=== PATIENT | female | born 1945 | race Caucasian/White ===

== ENCOUNTER → 2017-12-11 08:58 | Outpatient (CLI) | payer MEDICARE, SELFPAY ==
[2017-12-11 09:59] LABS: Cholesterol 151 mg/dL (140-199); HDL Cholesterol 75 mg/dL (40-60); LDL Cholesterol Calculated 62 mg/dL (<100); Triglycerides 71 mg/dL (35-150)
== END ==
PROVIDERS: PCP Internal Medicine; Visit Provider Internal Medicine Cardiovascular Disease
DX: I10 Essential (primary) hypertension (principal); E78.5 Hyperlipidemia, unspecified
CPT/HCPCS: 36415; 80061

== ENCOUNTER → 2017-12-21 07:58 | Outpatient (CLI) | payer MEDICARE, SELFPAY ==
--- NOTE | 2017-12-21 | DI.ECHO.S_ITS ---
[facility]---------+ [facility] +---------+ : : [address] : : : : [id number] : : : : Phone: [phone] +---------+ Echocardiogram Report + + :Name: JAMES WHITTEN Study Date: 12/21/2017 Height: 66 in : :[facility] Weight: 169 lb : : Gender: Female BSA: 1.9 m2 : :: 1945 Age: 72 yrs BP: 162/94 mmHg: :Reason For Study: Cardiomyopathy : :Ordering Physician: Migdalia : :Roscoe Tovar Performed By: Paris Darby : :Referring: Winifred Baird : + + Interpretation Summary 1) Normal left ventricular size with borderline reduced systolic function (EF about 50%). 2) Upper normal right ventricular size with normal function. 3) There is borderline mitral valve prolapse of the anterior leaflet. 4) There is mild to moderate mitral regurgitation. 5) Compared to the echo done 04/07/2017, no significant change. Procedure: A two-dimensional transthoracic echocardiogram with color flow and Doppler was performed. The study quality was technically adequate. Comparison is made with the echocardiogram of 04-07-17. The patient was in normal sinus rhythm during the exam. Left Ventricle: The left ventricle is normal in size. There is normal left ventricular wall thickness. There has been no significant change since the previous study. Left ventricular ejection fraction is estimated to be 50 +/- 5%. Assessment of diastolic parameters suggests a pseudonormalization pattern, consistent with elevated filling pressures. Right Ventricle: The right ventricle is at the upper limits of normal in size. The right ventricular systolic function is normal. Atria: The left atrium is moderately dilated. Right atrial size is normal. The interatrial septum is intact with no evidence for an atrial septal defect. Mitral Valve: The mitral valve leaflets appear borderline thickened, but open well. There is borderline mitral valve prolapse. There is prolapse of the anterior mitral valve leaflet. There is mild to moderate mitral regurgitation. Aortic Valve: The aortic valve is trileaflet. The aortic valve opens well. There is no aortic valve stenosis. No aortic regurgitation is present. Tricuspid Valve: The tricuspid valve leaflets are thin and pliable. There is trace tricuspid regurgitation. The right ventricular systolic pressure is estimated at 33 mmHg assuming a right atrial pressure of 8 mm Hg. Pulmonic Valve: The pulmonic valve is not well visualized. Great Vessels: The aortic root is normal size. The dimensions of the ascending aorta are normal. The IVC is dilated (diameter is greater than 2.1 cm) yet it collapses greater than 50% with a sniff. This suggests a right atrial pressure of 8 mm Hg. Pericardium/ Pleura There is no pericardial effusion. There is no pleural effusion. MMode/2D Measurements & Calculations LVIDd: 5.0 cm Ao root diam: 3.6 cm LVIDs: 4.2 cm Aortic Jxn: 2.8 cm FS: 16.9 % asc Aorta Diam: 3.4 cm IVSd: 0.90 cm Ao Arch Diam (Prox Trans): 3.1 cm LVPWd: 0.77 cm LV heck. diameter/BSA (cm/m^2): 2.7 LV sys. diameter/BSA (cm/m^2): 2.2 LA dimension: 4.1 cm RA long axis: 5.7 cm LA A2 area: 21.3 cm2 RA area: 19.2 cm2 LA A4 area: 27.5 cm2 RA vol: 54.8 ml LA length (vol): 5.9 cm RA : 29.4 ml/m2 LA vol: 84.8 ml IVC diam: 2.2 cm LA vol index: 45.5 ml/m2 RVD1 (basal): 3.1 cm Doppler Measurements & Calculations Ao V2 max: 145.2 cm/sec MV E max ablerto: 53.0 cm/sec Ao V2 mean: 86.6 cm/sec MV A max alberto: 60.0 cm/sec Ao max P.4 mmHg MV E/A: 0.88 Ao mean P.8 mmHg Med Peak E' Alberto: 4.1 cm/sec Ao V2 VTI: 32.2 cm E/E' med: 12.9 Lat Peak E' Alberto: 7.9 cm/sec E/E' lat: 6.7 E/e' average: 9.8 MV dec time: 0.29 sec MV P1/2t: 83.9 msec TR max alberto: 250.3 cm/sec MV P1/2t max alberto: 51.7 cm/sec TR max P.1 mmHg MVA(P1/2t): 2.6 cm2 PA V2 max: 72.4 cm/sec PA V2 mean: 48.1 cm/sec PA mean P.1 mmHg PA Accel Time: 0.16 sec Reading Physician:10:03 AM
== END ==
PROVIDERS: PCP Internal Medicine; Visit Provider Internal Medicine Cardiovascular Disease
DX: I48.0 Paroxysmal atrial fibrillation (principal); I42.9 Cardiomyopathy, unspecified; I34.0 Nonrheumatic mitral (valve) insufficiency
CPT/HCPCS: 93306

== ENCOUNTER → 2018-09-03 09:50 | Outpatient (CLI) | payer MEDICARE, SELFPAY ==
--- NOTE | 2018-09-03 | DI.RAD.S_ITS ---
PROCEDURE: XR KNEE RT 1TO2V INDICATIONS: KNEE PAIN TECHNIQUE: 2 views of the knee were acquired. COMPARISON: None. FINDINGS: Bones: No fractures or dislocations. No suspicious bony lesions. Mild thinning of the joint interspaces, chronic in appearance. Soft tissues: No joint effusion. No suspicious soft tissue calcifications. IMPRESSION: Mild degenerative knee joint osteoarthritis but no trauma found. Dictated by: Stanley Davis M.D. on 09/03/2018 at 11:25 Approved by: Stanley Davis M.D. on 09/03/2018 at 11:26
== END ==
PROVIDERS: PCP Internal Medicine; Visit Provider Internal Medicine
DX: Z13.820 Encounter for screening for osteoporosis (principal); M81.0 Age-related osteoporosis without current pathological fracture; Z78.0 Asymptomatic menopausal state; M25.561 Pain in right knee; M17.11 Unilateral primary osteoarthritis, right knee
CPT/HCPCS: 73560; 77080

== ENCOUNTER → 2018-09-15 09:23 | Outpatient (CLI) | payer MEDICARE, SELFPAY ==
[2018-09-15 10:17] LABS: Alanine Aminotransferase 45 IU/L (9-52); Aspartate Aminotransferase 31 IU/L (14-36); BUN Creatinine Ratio 22.5 (6-22); Blood Urea Nitrogen 18 mg/dL (7-17); Calcium 10.1 mg/dL (8.4-10.2); Carbon Dioxide 27 mmol/L (22-32); Chloride 104 mmol/L (98-107); Cholesterol 142 mg/dL (140-199); Estimated Glomerular Filt Rate > 60.0 mL/min (>60); Glucose 91 mg/dL (80-110); HDL Cholesterol 56 mg/dL (40-60); HEMOLYSIS < 15 (0-50); LDL Cholesterol Calculated 68 mg/dL (<100); Potassium 4.3 mmol/L (3.4-5.1); Sodium 139 mmol/L (137-145); Triglycerides 88 mg/dL (35-150)
== END ==
PROVIDERS: PCP Internal Medicine; Visit Provider Internal Medicine
DX: I10 Essential (primary) hypertension (principal); E78.5 Hyperlipidemia, unspecified
CPT/HCPCS: 36415; 80048; 80061; 84450; 84460

== ENCOUNTER → 2018-10-15 12:38 | Outpatient (CLI) | payer MEDICARE, SELFPAY ==
--- NOTE | 2018-10-15 | DI.MG.S_ITS ---
BILATERAL DIGITAL SCREENING MAMMOGRAM 3D/2D WITH CAD: 10/15/2018 CLINICAL: Routine screening. Family history of breast cancer. Comparison is made to exams dated: 10/07/2017 mammogram, 05/06/2016 mammogram - [facility], and 04/09/2015 mammogram - [facility]. The tissue of both breasts is heterogeneously dense. This may lower the sensitivity of mammography. Current study was also evaluated with a Computer Aided Detection (CAD) system. There are benign post operative findings in the right breast. There is a mole marker on the right breast. No significant masses, calcifications, or other findings are seen in either breast. There has been no significant interval change. IMPRESSION: There is no mammographic evidence of malignancy. A 1 year screening mammogram is recommended. This exam was interpreted at Station ID: [id number]. NOTE: For mammograms, a report in lay terms will be sent to the patient. Approximately 15% of breast malignancies will not be visualized mammographically. In the management of a palpable breast mass, a negative mammogram must not discourage biopsy of a clinically suspicious lesion. Electronically Signed By: Laurent celis/yessica:10/15/2018 18:23:05 letter sent: Normal Exam ACR BI-RADS Category 2: Benign Finding(s) 3342F
== END ==
PROVIDERS: PCP Internal Medicine; Visit Provider Internal Medicine
DX: Z12.31 Encounter for screening mammogram for malignant neoplasm of breast (principal); Z80.3 Family history of malignant neoplasm of breast
CPT/HCPCS: 77063; 77067

== ENCOUNTER → 2019-02-28 08:56 | Outpatient (CLI) | payer MEDICARE, SELFPAY ==
[2019-02-28 09:54] LABS: Add Manual Diff / Slide Review NO; Basophils Absolute Auto 100 /uL (0-100); Basophils Percent Auto 1.2 % (0-2); Eosinophils Absolute Auto 200 /uL (0-450); Eosinophils Percent Auto 3.9 % (2-4); Hematocrit 43.4 % (36-46); Hemoglobin 14.9 g/dL (12.0-16.0); Lymphocytes Absolute Auto 1600 /uL (1100-4500); Lymphocytes Percent Auto 27.6 % (25-40); Mean Corpuscular HGB Conc 34.3 % (30-36); Mean Corpuscular Hemoglobin 30.4 PG (26-34); Mean Corpuscular Volume 88.7 fL (80-100); Monocytes Absolute Auto 500 /uL (0-900); Monocytes Percent Auto 8.4 % (3-14); Neutrophils Absolute Auto 3500 /uL (1500-7000); Neutrophils Percent Auto 58.9 % (50-75); Platelet Count 215 X10^3/uL (150-400); Red Cell Distribution Width 13.6 % (11.6-14.8); White Blood Cell Count 5.9 X10^3/uL (4.5-11.0)
[2019-02-28 10:17] LABS: BUN Creatinine Ratio 22.9 (6-22); Blood Urea Nitrogen 16 mg/dL (7-17); Calcium 10.2 mg/dL (8.4-10.2); Carbon Dioxide 26 mmol/L (22-32); Chloride 106 mmol/L (98-107); Cholesterol 167 mg/dL (140-199); Estimated Glomerular Filt Rate > 60.0 mL/min (>60); Glucose 95 mg/dL (80-110); HDL Cholesterol 64 mg/dL (40-60); HEMOLYSIS < 15 (0-50); LDL Cholesterol Calculated 82 mg/dL (<100); Potassium 4.3 mmol/L (3.4-5.1); Sodium 139 mmol/L (137-145); Triglycerides 107 mg/dL (35-150)
== END ==
PROVIDERS: PCP Internal Medicine; Visit Provider Internal Medicine Cardiovascular Disease
DX: I10 Essential (primary) hypertension (principal)
CPT/HCPCS: 36415; 80048; 80061; 85025

== ENCOUNTER → 2019-11-21 14:55 | Outpatient (CLI) | payer MEDICARE, SELFPAY ==
--- NOTE | 2019-11-21 | DI.MG.S_ITS ---
BILATERAL DIGITAL SCREENING MAMMOGRAM 3D/2D WITH CAD: 11/21/2019 CLINICAL: Routine screening. Family history of breast cancer. Comparison is made to exams dated: 10/15/2018 mammogram, 10/07/2017 mammogram, and 05/06/2016 mammogram - [facility]. The tissue of both breasts is heterogeneously dense. This may lower the sensitivity of mammography. Current study was also evaluated with a Computer Aided Detection (CAD) system. There are benign calcifications in both breasts. There also are benign post operative findings in the right breast. There is a mole marker on the right breast. No significant masses, calcifications, or other findings are seen in either breast. There has been no significant interval change. IMPRESSION: There is no mammographic evidence of malignancy. A 1 year screening mammogram is recommended. This exam was interpreted at Station ID: [id number]. NOTE: For mammograms, a report in lay terms will be sent to the patient. Approximately 15% of breast malignancies will not be visualized mammographically. In the management of a palpable breast mass, a negative mammogram must not discourage biopsy of a clinically suspicious lesion. Electronically Signed By: Ming calderon/yessica:11/22/2019 13:48:23 letter sent: Normal Exam ACR BI-RADS Category 2: Benign Finding(s) 3342F
== END ==
PROVIDERS: PCP Internal Medicine; Referring Provider Internal Medicine; Visit Provider Internal Medicine
DX: Z12.31 Encounter for screening mammogram for malignant neoplasm of breast (principal); Z80.3 Family history of malignant neoplasm of breast
CPT/HCPCS: 77063; 77067

== ENCOUNTER → 2020-05-11 09:28 | Outpatient (CLI) | payer MEDICARE, SELFPAY ==
[2020-05-11 10:29] LABS: Add Manual Diff / Slide Review NO; Basophils Absolute Auto 100 /uL (0-100); Basophils Percent Auto 1.1 % (0-2); Eosinophils Absolute Auto 200 /uL (0-450); Eosinophils Percent Auto 4.1 % (2-4); Hematocrit 40.2 % (36-46); Hemoglobin 13.4 g/dL (12.0-16.0); Lymphocytes Absolute Auto 1500 /uL (1100-4500); Lymphocytes Percent Auto 30.4 % (25-40); Mean Corpuscular HGB Conc 33.4 % (30-36); Mean Corpuscular Hemoglobin 29.9 PG (26-34); Mean Corpuscular Volume 89.5 fL (80-100); Monocytes Absolute Auto 400 /uL (0-900); Monocytes Percent Auto 8.6 % (3-14); Neutrophils Absolute Auto 2800 /uL (1500-7000); Neutrophils Percent Auto 55.8 % (50-75); Platelet Count 183 X10^3/uL (150-400); Red Cell Distribution Width 13.4 % (11.6-14.8)
[2020-05-11 10:47] LABS: BUN Creatinine Ratio 23.3 (6-22); Blood Urea Nitrogen 17 mg/dL (7-17); Calcium 9.8 mg/dL (8.4-10.2); Carbon Dioxide 25 mmol/L (22-32); Chloride 107 mmol/L (98-107); Cholesterol 151 mg/dL (140-199); Estimated Glomerular Filt Rate > 60.0 mL/min (>60); Glucose 95 mg/dL (80-110); HDL Cholesterol 62 mg/dL (40-60); HEMOLYSIS < 15 (0-50); LDL Cholesterol Calculated 75 mg/dL (<100); Sodium 138 mmol/L (137-145); Triglycerides 70 mg/dL (35-150)
== END ==
PROVIDERS: PCP Internal Medicine; Referring Provider Internal Medicine Cardiovascular Disease; Visit Provider Internal Medicine Cardiovascular Disease
DX: I10 Essential (primary) hypertension (principal); E78.5 Hyperlipidemia, unspecified
CPT/HCPCS: 36415; 80048; 80061; 85025

== ENCOUNTER → 2020-05-29 08:40 | Outpatient (CLI) | payer MEDICARE, SELFPAY ==
--- NOTE | 2020-05-29 | DI.ECHO.S_ITS ---
[facility]---------+ [facility] +---------+ : : [address] : : : : [id number] : : : : Phone: [phone] : [phone] +---------+ Echocardiogram Report + + :Name: JAMES WHITTEN Study Date: 05/29/2020 Height: 66 in : :[facility] Weight: 170 lb : : Gender: Female BSA: 1.9 m2 : :: 1945 Age: 74 yrs BP: 156/102 mmHg: :Reason For Study: CARDIOMYOPATHY : :Ordering Physician: GLENROY, : :COOPER Performed By: Marianne Caceres : :Referring: COOPER TOVAR : + + Interpretation Summary 1) Normal left ventricular size with mildly reduced systolic function (EF 45- 50%). 2) Normal right ventricular size and normal function. 3) The left atrium is severely dilated. 4) There is mild mitral valve prolapse of the anterior leaflet. 5) There is mild mitral regurgitation. 6) Compared to the echo done 12/21/2017, LVEF has decreased from about 50% to 45-50%. Procedure: A two-dimensional transthoracic echocardiogram with color flow and Doppler was performed. The study quality was technically adequate. Comparison is made with the echocardiogram of 12/21/2017. The heart rate ranged between 58-70 bpm during the study. Left Ventricle: The left ventricle is normal in size and wall thickness. The ejection fraction is estimated to be 45-50%. Right Ventricle: The right ventricle is normal in size and function. Atria: The left atrium is severely dilated. Right atrial size is normal. There is no Doppler evidence for an interatrial shunt. Mitral Valve: There is mild mitral valve prolapse. There is mild mitral regurgitation. Aortic Valve: The aortic valve is trileaflet. The aortic valve opens well. There is no aortic valve stenosis. There is trace aortic regurgitation. Tricuspid Valve: The tricuspid valve is not well visualized, but is grossly normal. There is mild tricuspid regurgitation. The right ventricular systolic pressure is estimated to be at least 24 mmHg based on an estimated right atrial pressure of 3 mm Hg. Pulmonic Valve: The pulmonic valve is not well visualized. There is mild pulmonic regurgitation. Great Vessels: The aortic root is normal size. The dimensions of the ascending aorta are normal. The IVC is of normal diameter and collapses greater than 50% with a sniff. This suggests a low right atrial pressure of 3 mm Hg. Pericardium/ Pleura There is no pericardial effusion. There is no pleural effusion. MMode/2D Measurements & Calculations LVIDd: 5.4 cm LVOT diam: 2.1 cm LVIDs: 4.0 cm Ao root diam: 3.4 cm FS: 26.3 % Ao Arch Diam (Prox Trans): 3.0 cm EPSS: 0.89 cm IVSd: 0.90 cm LVPWd: 1.00 cm LV heck. diameter/BSA (cm/m^2): 2.9 LV sys. diameter/BSA (cm/m^2): 2.1 LA A2 area: 32.7 cm2 RA long axis: 6.2 cm LA A4 area: 29.5 cm2 RA area: 18.8 cm2 LA length (vol): 6.2 cm RA vol: 48.5 ml LA vol: 131.6 ml RA : 26.0 ml/m2 LA vol index: 70.5 ml/m2 IVC diam: 1.4 cm RVD1 (basal): 3.7 cm TAPSE: 2.1 cm Doppler Measurements & Calculations Ao V2 max: 125.6 cm/sec LVOT Max Alberto: 79.1 cm/sec Ao V2 mean: 90.5 cm/sec LV V1 max P.5 mmHg Ao max P.3 mmHg LV V1 VTI: 16.2 cm Ao mean P.5 mmHg ALICIA(I,D): 2.0 cm2 Ao V2 VTI: 27.9 cm ALICIA(V,D): 2.2 cm2 sev ratio: 0.58 ALICIA indexed to BSA (cm^2/m^2): 1.1 MV E max alberto: 67.8 cm/sec TR max alberto: 230.2 cm/sec MV A max alberto: 27.3 cm/sec TR max P.2 mmHg MV E/A: 2.5 PA V2 max: 36.3 cm/sec Med Peak E' Alberto: 4.2 cm/sec PA V2 mean: 25.8 cm/sec E/E' med: 16.0 PA mean P.31 mmHg Lat Peak E' Alberto: 9.7 cm/sec PA pr(Accel): 25.1 mmHg E/E' lat: 7.0 E/e' average: 11.5 MV dec time: 0.21 sec SV(LVOT): 55.7 ml Reading Physician:04:36 PM
== END ==
PROVIDERS: PCP Internal Medicine; Referring Provider Internal Medicine; Visit Provider Internal Medicine Cardiovascular Disease
DX: I08.1 Rheumatic disorders of both mitral and tricuspid valves (principal); I42.9 Cardiomyopathy, unspecified
CPT/HCPCS: 93306

== ENCOUNTER → 2020-12-04 13:54 | Outpatient (CLI) | payer MEDICARE, SELFPAY ==
--- NOTE | 2020-12-04 | DI.MG.S_ITS ---
BILATERAL DIGITAL SCREENING MAMMOGRAM 3D/2D WITH CAD: 12/04/2020 CLINICAL: Routine screening. Family history of breast cancer. Comparison is made to exams dated: 11/21/2019 mammogram, 10/15/2018 mammogram, 10/07/2017 mammogram, and 05/06/2016 mammogram - [facility]. The tissue of both breasts is heterogeneously dense. This may lower the sensitivity of mammography. Current study was also evaluated with a Computer Aided Detection (CAD) system. There are diffuse calcifications in the right breast. There also are calcifications in the left breast. Additionally, there are benign post operative findings and scarring in the right breast. There is a mole marker on the right breast. No significant masses, calcifications, or other findings are seen in either breast. There has been no significant interval change. IMPRESSION: BENIGN There is no mammographic evidence of malignancy. A 1 year screening mammogram is recommended. This exam was interpreted at Station ID: [id number]. NOTE: For mammograms, a report in lay terms will be sent to the patient. Approximately 15% of breast malignancies will not be visualized mammographically. In the management of a palpable breast mass, a negative mammogram must not discourage biopsy of a clinically suspicious lesion. Electronically Signed By: Poli Vidales M.D. aty/:12/04/2020 15:09:47 letter sent: Normal Exam ACR BI-RADS Category 2: Benign Finding(s) 3342F
--- NOTE | 2020-12-04 | DI.RAD.S_ITS ---
PROCEDURE: XR DEXA AXIAL SKELETON INDICATIONS: Age-related osteoporosis COMPARISON: [facility], CR, XR DEXA AXIAL SKELETON, 09/03/2018, 10:10. FINDINGS: This blank DEXA report has been sent in error by the PACS system. The correct and complete report will be forthcoming in 1-2 days. Thank you for your patience and understanding. Dictated by: Katja Michael MD, PhD on 12/04/2020 at 17:12 Approved by: Katja Michael MD, PhD on 12/04/2020 at 17:13
== END ==
PROVIDERS: PCP Internal Medicine; Referring Provider Internal Medicine; Visit Provider Internal Medicine
DX: M85.851 Other specified disorders of bone density and structure, right thigh (principal); Z12.31 Encounter for screening mammogram for malignant neoplasm of breast; Z80.3 Family history of malignant neoplasm of breast; Z78.0 Asymptomatic menopausal state
CPT/HCPCS: 77063; 77067; 77080

== ENCOUNTER 2021-02-06 17:43 | Inpatient (IN) | payer MEDICARE, SELFPAY ==
[2021-02-06] VITALS (12 sets, daily range): BP systolic 127–144; BP diastolic 78–103; PULSE 63–116; RESP 15–24; TEMP 36.6–36.9; O2SAT 85–99; BMI 29.0
--- NOTE | 2021-02-06 18:41 | ED.ABDPAIN ---
HPI - Abdominal Pain General Chief Complaint: Abdominal Pain Stated Complaint: abd pain all day Time Seen by Provider: 02/06/21 18:41 Source: patient Mode of arrival: Ambulatory History of Present Illness HPI narrative: 75-year-old woman with a history of chronic atrial fibrillation on metoprolol and warfarin presents with severe upper abdominal pain present since noon today. Associated with some nausea and vomiting but no diarrhea. She reports no constipation and notes that she has passed a small amount of flatus today. She has had prior bowel surgeries but isn't quite sure what was done. She apparently had a ?miscarriage? in the 70s and may have had an appendectomy and cholecystectomy. She has a large midline abdominal incision. She has never had bowel obstructions nor pain like this before. She reports no recent fevers cough, chills, headaches, paresthesias. She notes that she is in chronic AFib and has not been having any chest pain or noted particularly fast rates or palpitations. Related Data Home Medications Medication Instructions Recorded Confirmed metoprolol succinate 50 mg 50 mg PO BID #0 10/27/16 02/06/21 tablet,extended release 24 hr losartan 25 mg tablet 25 mg PO BEDTIME 02/06/21 02/06/21 rosuvastatin 5 mg tablet 5 mg PO DAILY 02/06/21 02/06/21 warfarin 5 mg tablet 5 mg PO 3XW 02/06/21 02/06/21 Allergies Allergy/AdvReac Type Severity Reaction Status Date / Time No Known Allergies Allergy Uncoded 09/02/17 12:40 Review of Systems Review of Systems Narrative: Remainder of complete review of systems is otherwise unremarkable except for that included in the HPI. Patient History Medical History (Updated 02/06/21 @ 23:03 by Dayanara Vanessa MD) Chronic atrial fibrillation Hyperlipidemia Hypertension Surgical History (Updated 02/06/21 @ 23:04 by Dayanara Vanessa MD) History of partial colectomy Status post colostomy takedown Family History (Updated 02/06/21 @ 23:04 by Dayanara Vanessa MD) Mother Stroke Father Parkinson's disease (tremor, stiffness, slow motion, unstable posture) Social History household members: spouse alcohol intake: current Exam Narrative Exam Narrative: General: Healthy appearing, in significant pain with spasms of increasing pain. Able to participate with history taking. HEENT: Moist mucous membranes, normal sclera with reactive pupils, Respiratory: Lungs are clear to auscultation, no wheezing no rales no rhonchi. Full and symmetrical air movement Cardiac: Mild tachycardia with an irregularly irregular rhythm, no murmurs no bruits Abdomen: Soft, exquisitely tender over the upper quadrants with guarding into the right lower quadrant, hypoactive bowel tones. No flank pain. Neurologic: Grossly neurologically intact with no obvious asymmetries or abnormalities Extremities: No trauma, well perfused Psych: Cooperative, appropriate insight and affect Initial Vital Signs Initial Vital Signs: Vital Signs Temperature 97.8 F 02/06/21 17:47 Pulse Rate 76 02/06/21 17:47 Respiratory Rate 18 02/06/21 17:47 Blood Pressure 144/92 H 02/06/21 17:47 Pulse Oximetry 99 02/06/21 17:47 Course Orders Ordered: ED Orders 02/06/21 17:58 EKG-12 Lead Stat 02/06/21 18:22 Complete Blood Count AUTO DIFF Stat Comprehensive Metabolic Panel Stat Lactate (Lactic Acid) Stat Lipase Stat 02/06/21 18:49 CT abdomen pelvis w con Stat 02/06/21 19:19 Prothrombin Time INR Stat 02/06/21 19:26 Blood Culture Stat 02/06/21 21:18 COVID19 - ADMIT (PIPE [employer]ENER swab/PCR) Stat Hydromorphone HCl (Hydromorphone 0.5 Mg Inj) 0.5 mg IV Q15MIN PRN PRN Reason: Pain, Last Admin: 02/06/21 21:36 Dose: 0.5 mg Documented by: Admin: 02/06/21 19:05 Dose: 0.5 mg Documented by: GREG Hydromorphone HCl (Hydromorphone 0.5 Mg Inj) 0.5 mg IV Q6H PRN PRN Reason: Pain, Moderate (4-6) Dextrose/Sodium Chloride (Dextrose 5%-0.9% Ns) 1,000 mls @ 100 mls/hr IV CONT LULU Last Admin: 02/06/21 22:51 Dose: 100 mls/hr Documented by: SJ Losartan Potassium (Losartan 25 Mg Tablet) 25 mg PO DAILY LULU Metoprolol Succinate (Metoprolol Er 50 Mg Tablet) 50 mg PO BID LULU Naloxone HCl (Naloxone 0.4 Mg/Ml Vial) 0.2 mg IV Q2MIN PRN PRN Reason: Opiate Reversal Ondansetron HCl (Ondansetron 4 Mg/2 Ml Inj) 4 mg IV Q8HR PRN PRN Reason: Nausea And Vomiting Discontinued Medications Sodium Chloride (Normal Saline 0.9%) 1,000 mls @ 1,000 mls/hr IV BOLUS ONE Stop: 02/06/21 19:47 Last Infusion: 02/06/21 21:41 Dose: 0 mls/hr Documented by: Admin: 02/06/21 19:05 Dose: 1,000 mls/hr Documented by: GREG Ondansetron HCl (Ondansetron 4 Mg/2 Ml Inj) 4 mg IV NOW ONE Stop: 02/06/21 18:49 Last Admin: 02/06/21 19:05 Dose: 4 mg Documented by: GREG Vital Signs Vital signs: Vital Signs - 8 hr 02/06/21 17:47 02/06/21 18:06 02/06/21 18:09 Temperature 97.8 F Pulse Rate 76 63 105 H Respiratory Rate 18 19 Blood Pressure 144/92 H 140/92 H Pulse Oximetry 99 96 96 02/06/21 18:33 02/06/21 19:00 02/06/21 19:18 Temperature Pulse Rate 87 97 H Respiratory Rate 24 19 15 Blood Pressure 134/103 H Pulse Oximetry 98 96 85 L 02/06/21 19:30 02/06/21 20:00 02/06/21 20:30 Temperature Pulse Rate 112 H 115 H 116 H Respiratory Rate 16 19 22 Blood Pressure 133/79 130/87 127/83 Pulse Oximetry 97 98 98 02/06/21 21:00 02/06/21 21:30 02/06/21 21:55 Temperature 98.4 F Pulse Rate 99 H 115 H 92 H Respiratory Rate 19 20 16 Blood Pressure 139/78 134/87 136/94 H Pulse Oximetry 98 99 MDM - Abdominal Pain Lab Data Result diagrams: 02/06/21 18:22 02/06/21 18:22 Labs: Lab Results 02/06/21 02/06/21 02/06/21 Range/Units 18:22 18:22 18:22 WBC 7.2 (4.5-11.0) X10^3/uL RBC 4.77 (4.0-5.2) X10^6/uL Hgb 13.9 (12.0-16.0) g/dL Hct 41.5 (36-46) % MCV 87.0 (80-100) fL MCH 29.1 (26-34) PG MCHC 33.4 (30-36) % RDW 14.8 (11.6-14.8) % Plt Count 169 (150-400) X10^3/uL Neut % (Auto) 77.8 H (50-75) % Lymph % (Auto) 15.6 L (25-40) % [place] % (Auto) 5.0 (3-14) % Eos % (Auto) 1.0 L (2-4) % Baso % (Auto) 0.6 (0-2) % Neut # (Auto) 5600 (1531-3781) /uL Lymph # (Auto) 1100 (0756-6334) /uL [place] # (Auto) 400 (0-900) /uL Eos # (Auto) 100 (0-450) /uL Baso # (Auto) 0 (0-100) /uL PT (10.1-12.7) SECONDS INR (0.9-1.3) Sodium 138 (137-145) mmol/L Potassium 4.3 (3.4-5.1) mmol/L Chloride 104 (98-107) mmol/L Carbon Dioxide 26 (22-32) mmol/L BUN 16 (7-17) mg/dL Creatinine 0.68 (0.52-1.04) mg/dL Estimated GFR > 60.0 (>60) mL/min BUN/Creatinine Ratio 23.5 H (6-22) Glucose 104 (80-110) mg/dL Lactate 1.0 (0.7-2.1) mmol/L Calcium 10.3 H (8.4-10.2) mg/dL Total Bilirubin 2.2 H (0.2-1.3) mg/dL AST 35 (14-36) IU/L ALT 37 H (<35) IU/L Alkaline Phosphatase 65 (38-126) U/L Total Protein 7.1 (6.3-8.2) g/dL Albumin 4.4 (3.5-5.0) g/dL Globulin 2.7 (1.7-4.1) g/dL Albumin/Globulin Ratio 1.6 (1.0-2.8) Lipase 60 (23-300) U/L SARS-CoV-2 (PCR) (Negative) 02/06/21 02/06/21 Range/Units 19:19 21:18 WBC (4.5-11.0) X10^3/uL RBC (4.0-5.2) X10^6/uL Hgb (12.0-16.0) g/dL Hct (36-46) % MCV (80-100) fL MCH (26-34) PG MCHC (30-36) % RDW (11.6-14.8) % Plt Count (150-400) X10^3/uL Neut % (Auto) (50-75) % Lymph % (Auto) (25-40) % [place] % (Auto) (3-14) % Eos % (Auto) (2-4) % Baso % (Auto) (0-2) % Neut # (Auto) (2792-1846) /uL Lymph # (Auto) (5910-8638) /uL [place] # (Auto) (0-900) /uL Eos # (Auto) (0-450) /uL Baso # (Auto) (0-100) /uL PT 28.8 H (10.1-12.7) SECONDS INR 2.5 H (0.9-1.3) Sodium (137-145) mmol/L Potassium (3.4-5.1) mmol/L Chloride (98-107) mmol/L Carbon Dioxide (22-32) mmol/L BUN (7-17) mg/dL Creatinine (0.52-1.04) mg/dL Estimated GFR (>60) mL/min BUN/Creatinine Ratio (6-22) Glucose (80-110) mg/dL Lactate (0.7-2.1) mmol/L Calcium (8.4-10.2) mg/dL Total Bilirubin (0.2-1.3) mg/dL AST (14-36) IU/L ALT (<35) IU/L Alkaline Phosphatase (38-126) U/L Total Protein (6.3-8.2) g/dL Albumin (3.5-5.0) g/dL Globulin (1.7-4.1) g/dL Albumin/Globulin Ratio (1.0-2.8) Lipase (23-300) U/L SARS-CoV-2 (PCR) Negative (Negative) Point of care testing: Urine Dip Bedside Urine Glucose Negative Bedside Urine Bilirubin - Negative Bedside Urine Ketone ++ 40 Urine Specific [place] 1.025 Bedside Urine Occult Blood - Negative Bedside Urine pH 6.0 Bedside Urine Protein +/- 15 Bedside Urine Urobilinogen - Negative Bedside Urine Nitrite - Negative Bedside Urine Leukocytes - Negative Esterase Imaging Data CT scan - abdomen/pelvis: Radiologist's Impression: FINDINGS: Image quality: Excellent. Lung bases: Dependent atelectasis in posterior aspect of bilateral lower lobes are seen. No pleural effusion or pneumothorax. Heart: Heart size is enlarged, no pericardial effusion. ABDOMEN: Liver: Liver is normal in size. Hypodense area are noted in anterior and posterior right hepatic segments and measures 4 and 5 mm in size series 2, image 26 and series 2, image 25 and are too small to characterize. Gallbladder: Multiple calcified stones are seen in dependent portion of gallbladder lumen. No gallbladder wall thickening or pericholecystic fluid. Biliary ducts: Unremarkable. Pancreas: Unremarkable. Spleen: No discrete splenic lesion. Small splenule is noted measures 1.3 cm in size. Adrenal Glands: Unremarkable. Kidneys and Ureters: Unremarkable. Stomach and Bowel: There is fluid distension of gastric lumen. Fluid distended small bowel loops are noted predominantly in left side of abdomen and measures up to 3.8 cm in diameter. A few air-fluid levels are seen. Distal small bowel loops are decompressed with suggestion of a zone of transition in anterior midline abdomen possibly involving mid to distal small bowel loop near a surgical clip seen on series 2, image 52. There is evidence of prior partial colectomy. No gross abnormal bowel wall thickening. No abscess collection. Peritoneum: No abnormal intraperitoneal fluid. No free air. Ventral Wall: No hernias. Abdominal Nodes: No retroperitoneal or mesenteric adenopathy by size criteria. Vessels: Aorta and inferior vena cava are normal in size. PELVIS: Pelvic Organs: Unremarkable. Bladder: Unremarkable. Pelvic Nodes: No enlarged lymph nodes. Miscellaneous: No hernias are seen. Bones: Degenerative disc disease throughout lower thoracic and lumbar spine is seen. There is grade 1 anterolisthesis of L4 on L5. No acute vertebral body compression fracture. No gross suspicious bony lesion. IMPRESSION: 1. Finding is suggestive of mid to distal small bowel obstruction with zone of transition likely involving mid to distal small bowel in anterior mid to lower abdomen near a surgical clip as above. This possibly represents bowel obstruction secondary to surgical adhesion given patient's history of prior partial colectomy. No gross abnormal bowel wall thickening. No free fluid or free air. 2. Cholelithiasis without CT evidence of acute cholecystitis. 3. Bibasilar dependent atelectasis. Dictated by: Fredrick Lomeli M.D. on 02/06/2021 at 19:55 ECG Data Interpretation: Atrial fibrillation at a rate of [address] T wave changes MDM Narrative Medical decision making narrative: 75-year-old woman presents with acute abdominal pain. CT scan suggests small bowel obstruction with transition point involving the mid to distal small bowel. Most suggestive of an acute adhesion. With the acute transition noted on the CT scan care is reviewed with Dr. Underwood, general surgeon on-call. Her recommendation was to admit to the hospital service and she will consult. Regarding the INR 2.5 she recommended simply holding Coumadin for the time being with no active reversal. Care is reviewed with Dr. Vanessa, hospitalist butadiene converter helper this evening. Patient will be admitted to her service. Will need COVID swab prior to admission. Hold on NG at this point as pain and vomiting or currently controlled. Final diagnosis of small-bowel obstruction. Discharge Plan Departure Patient Disposition: Admitted as Observation Clinical Impression: SBO (small bowel obstruction) Admit Date/Time: 02/06/21 21:56 Admit Provider: Dayanara Vanessa
[2021-02-06 18:42] LABS: Alanine Aminotransferase 37 IU/L (<35); Albumin 4.4 g/dL (3.5-5.0); Albumin Globulin Ratio 1.6 (1.0-2.8); Alkaline Phosphatase 65 U/L (38-126); Aspartate Aminotransferase 35 IU/L (14-36); BUN Creatinine Ratio 23.5 (6-22); Bilirubin Total 2.2 mg/dL (0.2-1.3); Blood Urea Nitrogen 16 mg/dL (7-17); Calcium 10.3 mg/dL (8.4-10.2); Carbon Dioxide 26 mmol/L (22-32); Chloride 104 mmol/L (98-107); Estimated Glomerular Filt Rate > 60.0 mL/min (>60); Globulin 2.7 g/dL (1.7-4.1); Glucose 104 mg/dL (80-110); HEMOLYSIS < 15 (0-50); Lipase 60 U/L (23-300); Potassium 4.3 mmol/L (3.4-5.1); Sodium 138 mmol/L (137-145); Total Protein 7.1 g/dL (6.3-8.2)
[2021-02-06 18:49] LABS: Add Manual Diff / Slide Review NO; Basophils Absolute Auto 0 /uL (0-100); Basophils Percent Auto 0.6 % (0-2); Eosinophils Absolute Auto 100 /uL (0-450); Hematocrit 41.5 % (36-46); Hemoglobin 13.9 g/dL (12.0-16.0); Lymphocytes Absolute Auto 1100 /uL (1100-4500); Lymphocytes Percent Auto 15.6 % (25-40); Mean Corpuscular HGB Conc 33.4 % (30-36); Mean Corpuscular Hemoglobin 29.1 PG (26-34); Monocytes Absolute Auto 400 /uL (0-900); Neutrophils Absolute Auto 5600 /uL (1500-7000); Neutrophils Percent Auto 77.8 % (50-75); Platelet Count 169 X10^3/uL (150-400); Red Blood Cell Count 4.77 X10^6/uL (4.0-5.2); Red Cell Distribution Width 14.8 % (11.6-14.8); White Blood Cell Count 7.2 X10^3/uL (4.5-11.0)
--- NOTE | 2021-02-06 18:49 | DI.CT.S_ITS ---
PROCEDURE: CT ABDOMEN PELVIS W CON INDICATIONS: abd pain TECHNIQUE: After the administration of intravenous contrast, axial sections acquired from the lung bases to the pubic symphysis. Coronal and sagittal reformats were performed. For radiation dose reduction, the following was used: automated exposure control, adjustment of mA and/or kV according to patient size. COMPARISON: None. FINDINGS: Image quality: Excellent. Lung bases: Dependent atelectasis in posterior aspect of bilateral lower lobes are seen. No pleural effusion or pneumothorax. Heart: Heart size is enlarged, no pericardial effusion. ABDOMEN: Liver: Liver is normal in size. Hypodense area are noted in anterior and posterior right hepatic segments and measures 4 and 5 mm in size series 2, image 26 and series 2, image 25 and are too small to characterize. Gallbladder: Multiple calcified stones are seen in dependent portion of gallbladder lumen. No gallbladder wall thickening or pericholecystic fluid. Biliary ducts: Unremarkable. Pancreas: Unremarkable. Spleen: No discrete splenic lesion. Small splenule is noted measures 1.3 cm in size. Adrenal Glands: Unremarkable. Kidneys and Ureters: Unremarkable. Stomach and Bowel: There is fluid distension of gastric lumen. Fluid distended small bowel loops are noted predominantly in left side of abdomen and measures up to 3.8 cm in diameter. A few air-fluid levels are seen. Distal small bowel loops are decompressed with suggestion of a zone of transition in anterior midline abdomen possibly involving mid to distal small bowel loop near a surgical clip seen on series 2, image 52. There is evidence of prior partial colectomy. No gross abnormal bowel wall thickening. No abscess collection. Peritoneum: No abnormal intraperitoneal fluid. No free air. Ventral Wall: No hernias. Abdominal Nodes: No retroperitoneal or mesenteric adenopathy by size criteria. Vessels: Aorta and inferior vena cava are normal in size. PELVIS: Pelvic Organs: Unremarkable. Bladder: Unremarkable. Pelvic Nodes: No enlarged lymph nodes. Miscellaneous: No hernias are seen. Bones: Degenerative disc disease throughout lower thoracic and lumbar spine is seen. There is grade 1 anterolisthesis of L4 on L5. No acute vertebral body compression fracture. No gross suspicious bony lesion. IMPRESSION: 1. Finding is suggestive of mid to distal small bowel obstruction with zone of transition likely involving mid to distal small bowel in anterior mid to lower abdomen near a surgical clip as above. This possibly represents bowel obstruction secondary to surgical adhesion given patient's history of prior partial colectomy. No gross abnormal bowel wall thickening. No free fluid or free air. 2. Cholelithiasis without CT evidence of acute cholecystitis. 3. Bibasilar dependent atelectasis. Dictated by: Fredrick Lomeli M.D. on 02/06/2021 at 19:55 Approved by: Fredrick Lomeli M.D. on 02/06/2021 at 20:08
[2021-02-06] MEDS: SODIUM CHLORIDE 0.9% 1,000 ML 1000 ML IV (19:05)
[2021-02-06] MEDS: HYDROMORPHONE 0.5 MG INJ IV ×2 (19:05→21:36)
[2021-02-06] MEDS: ONDANSETRON 4 MG/2 ML INJ IV (19:05)
[2021-02-06 19:47] LABS: INR 2.5 (0.9-1.3); Prothrombin Time 28.8 SECONDS (10.1-12.7)
[2021-02-06 22:13] LABS: COVID19 - ADMIT (NP swab/PCR) Negative (Negative)
[2021-02-06] MEDS: DEXTROSE 5%-0.9% NS 1,000 ML 100 ML IV (22:51)
--- NOTE | 2021-02-06 22:52 | P.HP_ITS ---
History of Present Illness History of Present Illness Date Patient Seen: 02/06/21 Time Patient Seen: 22:52 Chief complaint: abd pain all day Narrative: The patient is a 75-year-old female with a history of hypertension, chronic atrial fibrillation on Coumadin, and a remote history of a colectomy and subsequent colostomy takedown. The patient was in her usual state of health until earlier today. She developed abrupt onset of abdominal pain which was fairly severe. She describes the pain as diffuse, 8/10 in intensity. She had 1 episode of vomiting. The patient states she normally has diarrhea, however she has not had a bowel movement for the past 2 days. Because of her significant abdominal pain the patient presented to the hospital for evaluation. She reported no fever or chills. She has mild shortness of breath which is new. She denies any chest pain or palpitations. She has no dysuria hematuria or pyuria. Patient denies any hematemesis melena or bright red blood per rectum. On evaluation in the emergency department she was found to have a a white count of 7.2, protime 28.8 with an INR of 2.5. Calcium 10.3, total bili 2.2, ALT of 37. CT scan of the abdomen and pelvis revealed the following: Finding is suggestive of mid to distal small bowel obstruction with zone of transition likely involving mid to distal small bowel in anterior mid to lower abdomen near asurgical clip as above.This possibly represents bowel obstruction secondary to surgical adhesion given patient'shistory of prior partial colectomy.? No gross abnormal bowel wall thickening.? No free fluid or free air.2. Cholelithiasis without CT evidence of acute cholecystitis. 3.? Bibasilar dependent atelectasis.? Patient is admitted to the hospital for small-bowel obstruction Patient History Medical History (Updated 02/06/21 @ 23:03 by Dayanara Vanessa MD) Chronic atrial fibrillation Hyperlipidemia Hypertension Surgical History (Updated 02/06/21 @ 23:04 by Dayanara Vanessa MD) History of partial colectomy Status post colostomy takedown Family & Social History Family History (Updated 02/06/21 @ 23:04 by Dayanara Vanessa MD) Mother Stroke Father Parkinson's disease (tremor, stiffness, slow motion, unstable posture) Social History: household members spouse Prior Living Arrangements House Safety & Behavioral: Feels Safe in Current Yes Environment Been Physically Hurt or No Threatened By a Person Suicidal Ideation Description None Suicide Plan Description No Plan Tobacco & Substance use: alcohol intake current alcohol intake frequency 0-2 drinks per day Substance Use Type does not use Meds Home Medications and Allergies Home Medications Medication Instructions Recorded Confirmed Type metoprolol succinate 50 mg 50 mg PO BID #0 10/27/16 02/06/21 History tablet,extended release 24 hr losartan 25 mg tablet 25 mg PO BEDTIME 02/06/21 02/06/21 History rosuvastatin 5 mg tablet 5 mg PO DAILY 02/06/21 02/06/21 History warfarin 5 mg tablet 5 mg PO 3XW 02/06/21 02/06/21 History Allergies Allergy/AdvReac Type Severity Reaction Status Date / Time No Known Allergies Allergy Uncoded 09/02/17 12:40 Review of Systems Review of Systems Narrative: 10 point review of systems is negative except as above Exam Vital Signs (past 8 hours): - 02/06/21 17:47 02/06/21 18:06 02/06/21 18:09 Temperature 97.8 F Pulse Rate 76 63 105 H Respiratory Rate 18 19 Blood Pressure 144/92 H 140/92 H Pulse Oximetry 99 96 96 02/06/21 18:33 02/06/21 19:00 02/06/21 19:18 Temperature Pulse Rate 87 97 H Respiratory Rate 24 19 15 Blood Pressure 134/103 H Pulse Oximetry 98 96 85 L 02/06/21 19:30 02/06/21 20:00 02/06/21 20:30 Temperature Pulse Rate 112 H 115 H 116 H Respiratory Rate 16 19 22 Blood Pressure 133/79 130/87 127/83 Pulse Oximetry 97 98 98 02/06/21 21:00 02/06/21 21:30 02/06/21 21:55 Temperature 98.4 F Pulse Rate 99 H 115 H 92 H Respiratory Rate 19 20 16 Blood Pressure 139/78 134/87 136/94 H Pulse Oximetry 98 99 Oxygen Delivery Method Nasal Cannula Narrative Exam Narrative: Pleasant female somewhat uncomfortable resting HENMT Other: HEENT: Normocephalic atraumatic, extraocular muscles are intact, oropharynx reveals moist mucous membranes, neck is supple without adenopathy or thyromegaly Resp Other: Lungs: Clear to auscultation Cardio Other: Cardiac exam: Irregularly irregular, tachycardic, normal S1-S2 GI Other: Abdomen: Scaphoid, soft, hypoactive bowel tones are noted, there is mild tenderness. There is no rebound tenderness, no board-like rigidity, no palpable masses, there is a well-healed midline incision noted There is no hepatosplenomegaly noted Back/Spine/Pelvis Other: No significant abnormalities of the spine Skin Other: No gross lesion Neuro Other: Neuro exam is nonfocal Extrem Other: No edema Psych Other: The patient is awake alert and appropriate, she has no hallucinations, no delusions, Objective Labs Result Diagrams: 02/06/21 18:22 02/06/21 18:22 Labs: Laboratory Results - last 24 hr 02/06/21 02/06/21 02/06/21 18:22 18:22 18:22 WBC 7.2 RBC 4.77 Hgb 13.9 Hct 41.5 MCV 87.0 MCH 29.1 MCHC 33.4 RDW 14.8 Plt Count 169 Neut % (Auto) 77.8 H Lymph % (Auto) 15.6 L [place] % (Auto) 5.0 Eos % (Auto) 1.0 L Baso % (Auto) 0.6 Neut # (Auto) 5600 Lymph # (Auto) 1100 [place] # (Auto) 400 Eos # (Auto) 100 Baso # (Auto) 0 PT INR Sodium 138 Potassium 4.3 Chloride 104 Carbon Dioxide 26 BUN 16 Creatinine 0.68 Estimated GFR > 60.0 BUN/Creatinine Ratio 23.5 H Glucose 104 Lactate 1.0 Calcium 10.3 H Total Bilirubin 2.2 H AST 35 ALT 37 H Alkaline Phosphatase 65 Total Protein 7.1 Albumin 4.4 Globulin 2.7 Albumin/Globulin Ratio 1.6 Lipase 60 SARS-CoV-2 (PCR) 02/06/21 02/06/21 19:19 21:18 WBC RBC Hgb Hct MCV MCH MCHC RDW Plt Count Neut % (Auto) Lymph % (Auto) [place] % (Auto) Eos % (Auto) Baso % (Auto) Neut # (Auto) Lymph # (Auto) [place] # (Auto) Eos # (Auto) Baso # (Auto) PT 28.8 H INR 2.5 H Sodium Potassium Chloride Carbon Dioxide BUN Creatinine Estimated GFR BUN/Creatinine Ratio Glucose Lactate Calcium Total Bilirubin AST ALT Alkaline Phosphatase Total Protein Albumin Globulin Albumin/Globulin Ratio Lipase SARS-CoV-2 (PCR) Negative Assessment & Plan Assessment & Plan narrative: 1. 75-year-old female admitted to the hospital with abrupt onset of abdominal pain. Patient with CT scan of the abdomen and pelvis which reveals findings suggestive of a mid to distal small-bowel obstruction, there is a transition zone involving the mid to distal small bowel in the anterior, and mid to lower abdomen near the surgical clip. It is felt that this bowel obstruction is likely due to a surgical adhesion, patient has a prior history of partial colectomy. She also has cholelithiasis but no evidence of cholecystitis She has no nausea, pain is well controlled currently with 1 dose of Dilaudid Will defer NG tube at this time -will start IV hydration -surgical consult by Dr. Ames -will consider upper GI small-bowel follow-through, but will defer to Dr. Underwood in the morning -patient will be kept NPO except for medication -she will be placed on heparin for DVT prophylaxis, once her INR has normalized 2. Chronic atrial fibrillation -will continue metoprolol -Coumadin has been held -will follow up INR tomorrow, will let INR drift down towards normal, no reversal at this time 3. Hyperlipidemia -resume his statin on hold 4. Hypertension -will continue losartan Patient reports she is a full code, her is her surrogate decision maker, patient will be admitted as an inpatient as it is expected that her hospital stay will span greater than 48 hours Time Spent With Patient Critical Care time: I spent a total of [] minutes of critical care time on this patient's care today; this time is exclusive of procedural time.
[2021-02-07] VITALS (11 sets, daily range): BP systolic 109–132; BP diastolic 68–91; PULSE 68–105; RESP 14–18; TEMP 36.1–37.3; O2SAT 89–98
--- NOTE | 2021-02-07 | DI.RAD.S_ITS ---
PROCEDURE: XR GASTROGRAFIN CHALLENGE COMPARISON: [facility], CT, CT ABDOMEN PELVIS W CON, 02/06/2021, 19:13. INDICATIONS: small bowel obstruction FINDINGS: Dilated loop of small bowel in the left abdomen. This loop is filled with oral contrast. Contrast does not extend into the right abdomen. There is a portion of this loop of small bowel in the left abdomen which appears narrowed. The stomach and duodenum are prominent. There is prominent stool in the rectum. There is excreted contrast in the urinary bladder. IMPRESSION: Persistent dilated loops of small bowel in the left abdomen. Contrast does not transit distally at this time point at 4 hours. Suspect persistent small bowel obstruction. Recommend short-term follow-up abdominal radiograph. Dictated by: Vinay Roach M.D. on 02/07/2021 at 13:57 Approved by: Vinay Roach M.D. on 02/07/2021 at 14:02
[2021-02-07] MEDS: HYDROMORPHONE 0.5 MG INJ IV ×3 (03:07→13:07)
[2021-02-07] MEDS: ONDANSETRON 4 MG/2 ML INJ IV ×3 (03:11→18:56)
[2021-02-07 06:03] LABS: Add Manual Diff / Slide Review NO; Basophils Absolute Auto 0 /uL (0-100); Basophils Percent Auto 0.2 % (0-2); Eosinophils Absolute Auto 0 /uL (0-450); Hematocrit 39.2 % (36-46); Lymphocytes Absolute Auto 600 /uL (1100-4500); Lymphocytes Percent Auto 8.3 % (25-40); Mean Corpuscular HGB Conc 33.1 % (30-36); Mean Corpuscular Hemoglobin 29.2 PG (26-34); Mean Corpuscular Volume 88.1 fL (80-100); Monocytes Absolute Auto 300 /uL (0-900); Neutrophils Absolute Auto 6600 /uL (1500-7000); Neutrophils Percent Auto 87.5 % (50-75); Platelet Count 156 X10^3/uL (150-400); Red Blood Cell Count 4.45 X10^6/uL (4.0-5.2); Red Cell Distribution Width 14.5 % (11.6-14.8); White Blood Cell Count 7.5 X10^3/uL (4.5-11.0)
[2021-02-07 06:09] LABS: INR 2.6 (0.9-1.3); Prothrombin Time 29.7 SECONDS (10.1-12.7)
[2021-02-07 06:14] LABS: BUN Creatinine Ratio 21.2 (6-22); Blood Urea Nitrogen 14 mg/dL (7-17); Calcium 9.5 mg/dL (8.4-10.2); Carbon Dioxide 26 mmol/L (22-32); Chloride 107 mmol/L (98-107); Estimated Glomerular Filt Rate > 60.0 mL/min (>60); Glucose 168 mg/dL (80-110); HEMOLYSIS < 15 (0-50); Potassium 4.8 mmol/L (3.4-5.1); Sodium 137 mmol/L (137-145)
[2021-02-07] MEDS: METOPROLOL ER 50 MG TABLET PO ×2 (08:37→20:04)
[2021-02-07] MEDS: LOSARTAN 25 MG TABLET PO (08:38)
[2021-02-07] MEDS: DEXTROSE 5%-0.9% NS 1,000 ML 100 ML IV ×2 (09:02→16:50)
--- NOTE | 2021-02-07 09:26 | PM.CN ---
History of Present Illness Consult details Date Patient Seen: 02/07/21 Time Patient Seen: 09:26 Chief complaint: abd pain all day Reason for consult: SBO Requesting provider: Dayanara Vanessa Narrative: Little over a day of nausea, vomiting, no BM, no flatus. Generalized crampy abdominal pain. Emesis this morning is low volume. On chronic anticoagulation. H/o colon resection in the 's. CT scan I reviewed personally, gastric distention is mild (likely due to emesis). mildly dilated SBO with decompressed distal. Free fluid in pelvis that might indicate a systemic illness as well. Meds Home Medications and Allergies Home Medications Medication Instructions Recorded Confirmed Type metoprolol succinate 50 mg 50 mg PO BID #0 10/27/16 02/06/21 History tablet,extended release 24 hr losartan 25 mg tablet 25 mg PO BEDTIME 02/06/21 02/06/21 History rosuvastatin 5 mg tablet 5 mg PO DAILY 02/06/21 02/06/21 History warfarin 5 mg tablet 5 mg PO 3XW 02/06/21 02/06/21 History Allergies Allergy/AdvReac Type Severity Reaction Status Date / Time No Known Allergies Allergy Uncoded 09/02/17 12:40 Review of Systems Review of Systems Narrative: abdominal cramping, nausea, no BM, no flatus ROS: Yes All systems reviewed with the patient and are negative except as otherwise documented Exam Vital Signs (past 8 hours): - 02/07/21 03:49 02/07/21 07:20 02/07/21 08:37 Temperature 98.6 F 97.6 F Pulse Rate 78 84 Respiratory Rate 18 16 Blood Pressure 132/78 115/76 115/76 Pulse Oximetry 95 94 02/07/21 08:38 Temperature Pulse Rate Respiratory Rate Blood Pressure 115/76 Pulse Oximetry Oxygen Delivery Method Nasal Cannula Oxygen Flow Rate 0 Const General: cooperative and in distress Nutritional Appearance: average body habitus [facility] Head: normal to inspection Face and sinus: normal facial exam Eyes General: appearance normal, both eyes and all related structures Neck Neck: trachea midline and supple Chest Chest: normal inspection of the chest Resp Effort & Inspection: normal respiratory effort and able to speak in complete sentences Cardio Rate: regular rate and tachycardic Other: on metoprolol l GI Inspection: distended (minimal distention, mild general tenderness) and scar (midline and RLQ(colostomy)) Palpation: soft Other: no acute abdomen Skin General: no rashes or lesions noted Neuro General: patient alert and patient oriented x3 Speech: speech normal Extrem General: normal to inspection Psych Appearance: grossly normal Affect: normal affect Attitude: cooperative Judgment: judgment good Objective Labs Result Diagrams: 02/07/21 05:45 02/07/21 05:45 Labs: Laboratory Results - last 24 hr 02/06/21 02/06/21 02/06/21 18:22 18:22 18:22 WBC 7.2 RBC 4.77 Hgb 13.9 Hct 41.5 MCV 87.0 MCH 29.1 MCHC 33.4 RDW 14.8 Plt Count 169 Neut % (Auto) 77.8 H Lymph % (Auto) 15.6 L [place] % (Auto) 5.0 Eos % (Auto) 1.0 L Baso % (Auto) 0.6 Neut # (Auto) 5600 Lymph # (Auto) 1100 [place] # (Auto) 400 Eos # (Auto) 100 Baso # (Auto) 0 PT INR Sodium 138 Potassium 4.3 Chloride 104 Carbon Dioxide 26 BUN 16 Creatinine 0.68 Estimated GFR > 60.0 BUN/Creatinine Ratio 23.5 H Glucose 104 Lactate 1.0 Calcium 10.3 H Total Bilirubin 2.2 H AST 35 ALT 37 H Alkaline Phosphatase 65 Total Protein 7.1 Albumin 4.4 Globulin 2.7 Albumin/Globulin Ratio 1.6 Lipase 60 SARS-CoV-2 (PCR) 02/06/21 02/06/21 02/07/21 19:19 21:18 05:45 WBC RBC Hgb Hct MCV MCH MCHC RDW Plt Count Neut % (Auto) Lymph % (Auto) [place] % (Auto) Eos % (Auto) Baso % (Auto) Neut # (Auto) Lymph # (Auto) [place] # (Auto) Eos # (Auto) Baso # (Auto) PT 28.8 H 29.7 H INR 2.5 H 2.6 H Sodium Potassium Chloride Carbon Dioxide BUN Creatinine Estimated GFR BUN/Creatinine Ratio Glucose Lactate Calcium Total Bilirubin AST ALT Alkaline Phosphatase Total Protein Albumin Globulin Albumin/Globulin Ratio Lipase SARS-CoV-2 (PCR) Negative 02/07/21 02/07/21 05:45 05:45 WBC 7.5 RBC 4.45 Hgb 13.0 Hct 39.2 MCV 88.1 MCH 29.2 MCHC 33.1 RDW 14.5 Plt Count 156 Neut % (Auto) 87.5 H Lymph % (Auto) 8.3 L [place] % (Auto) 4.0 Eos % (Auto) 0.0 L Baso % (Auto) 0.2 Neut # (Auto) 6600 Lymph # (Auto) 600 L [place] # (Auto) 300 Eos # (Auto) 0 Baso # (Auto) 0 PT INR Sodium 137 Potassium 4.8 Chloride 107 Carbon Dioxide 26 BUN 14 Creatinine 0.66 Estimated GFR > 60.0 BUN/Creatinine Ratio 21.2 Glucose 168 H Lactate Calcium 9.5 Total Bilirubin AST ALT Alkaline Phosphatase Total Protein Albumin Globulin Albumin/Globulin Ratio Lipase SARS-CoV-2 (PCR) [facility] Medical History Chronic atrial fibrillation Hyperlipidemia Hypertension Surgical History History of partial colectomy Status post colostomy takedown Family History Mother Stroke Father Parkinson's disease (tremor, stiffness, slow motion, unstable posture) Social History household members: spouse Tobacco & Substance Use alcohol intake: current Assessment & Plan Assessment and plan (1) SBO (small bowel obstruction): Status: Acute (2) Chronic atrial fibrillation: Problem details: Currently on warfarin Status: Acute Plan: Gastrografin challenge, continue NPO with IV hydration. Hold coumadin but do not actively reverse. Assessment & Plan narrative: Small bowel obstruction with no acute abdomen. Chronic anticoagulation. Parkinson's COVID-19 COVID-19 status: Negative Time Spent With Patient Time with patient: 30 to 49 minutes with 50% spent counseling/coordinating care Critical Care time: I spent a total of [] minutes of critical care time on this patient's care today; this time is exclusive of procedural time.
--- NOTE | 2021-02-07 09:28 | CM.DANOTE ---
DCP: Case received, EMR reviewed and met with patient. Introduced self and role. Was able to obtain information from patient regarding her baseline activity status prior to hospitalization. DCP assessment completed with information currently available. Patient is a 75 year old female who admitted yesterday evening to the care of the hospitalist team. PCP: Dr. Winifred Baird. Payer: confirmed: Medicare/[employer]. Patient came to the hospital via private vehicle secondary to having abdominal pain with nausea and vomiting. Patient holds diagnosis of mid to distal small bowel obstruction, as well as cholelithias. Met with patient in her room. She was having some nausea during the visit. Confirmed that she resides here in [place] with her spouse, Berto. She is independent at her baseline, as far as mobility and driving. She is alert and oriented. She stated, these symptoms started at noon, and haven't felt like this before. P: DCP to continue to follow. Patient should be able to go home when she is medically stable. Elizabeth Ochoa RN/Consulting [employer]
[2021-02-07] MEDS: METOCLOPRAMIDE 10 MG/2 ML INJ IV ×3 (09:41→22:55)
--- NOTE | 2021-02-07 11:09 | P.PN_ITS ---
Subjective Subjective Date Patient Seen: 02/07/21 Time Patient Seen: 08:00 Interval history: Today she feels nauseous, she has abdominal pain, moderately improved with pain medications. She has vomited but it's been very little volume. Exam Vital Signs (past 8 hours): - 02/07/21 03:49 02/07/21 07:20 02/07/21 08:37 Temperature 98.6 F 97.6 F Pulse Rate 78 84 Respiratory Rate 18 16 Blood Pressure 132/78 115/76 115/76 Pulse Oximetry 95 94 02/07/21 08:38 Temperature Pulse Rate Respiratory Rate Blood Pressure 115/76 Pulse Oximetry Oxygen Delivery Method Nasal Cannula Oxygen Flow Rate 0 Narrative Exam Narrative: GEN: mild distress from pain CV: regular rate and rhythm PULM: clear bilaterally ABD: soft, no rebound/guarding, diffusely tender, diminished bowel sounds EXT: warm and well perfused with no edema NEURO: awake and alert, no focal deficits noted Objective Labs Result Diagrams: 02/07/21 05:45 02/07/21 05:45 Labs: Laboratory Results - last 24 hr 02/06/21 02/06/21 02/06/21 18:22 18:22 18:22 WBC 7.2 RBC 4.77 Hgb 13.9 Hct 41.5 MCV 87.0 MCH 29.1 MCHC 33.4 RDW 14.8 Plt Count 169 Neut % (Auto) 77.8 H Lymph % (Auto) 15.6 L [place] % (Auto) 5.0 Eos % (Auto) 1.0 L Baso % (Auto) 0.6 Neut # (Auto) 5600 Lymph # (Auto) 1100 [place] # (Auto) 400 Eos # (Auto) 100 Baso # (Auto) 0 PT INR Sodium 138 Potassium 4.3 Chloride 104 Carbon Dioxide 26 BUN 16 Creatinine 0.68 Estimated GFR > 60.0 BUN/Creatinine Ratio 23.5 H Glucose 104 Lactate 1.0 Calcium 10.3 H Total Bilirubin 2.2 H AST 35 ALT 37 H Alkaline Phosphatase 65 Total Protein 7.1 Albumin 4.4 Globulin 2.7 Albumin/Globulin Ratio 1.6 Lipase 60 SARS-CoV-2 (PCR) 02/06/21 02/06/21 02/07/21 19:19 21:18 05:45 WBC RBC Hgb Hct MCV MCH MCHC RDW Plt Count Neut % (Auto) Lymph % (Auto) [place] % (Auto) Eos % (Auto) Baso % (Auto) Neut # (Auto) Lymph # (Auto) [place] # (Auto) Eos # (Auto) Baso # (Auto) PT 28.8 H 29.7 H INR 2.5 H 2.6 H Sodium Potassium Chloride Carbon Dioxide BUN Creatinine Estimated GFR BUN/Creatinine Ratio Glucose Lactate Calcium Total Bilirubin AST ALT Alkaline Phosphatase Total Protein Albumin Globulin Albumin/Globulin Ratio Lipase SARS-CoV-2 (PCR) Negative 02/07/21 02/07/21 05:45 05:45 WBC 7.5 RBC 4.45 Hgb 13.0 Hct 39.2 MCV 88.1 MCH 29.2 MCHC 33.1 RDW 14.5 Plt Count 156 Neut % (Auto) 87.5 H Lymph % (Auto) 8.3 L [place] % (Auto) 4.0 Eos % (Auto) 0.0 L Baso % (Auto) 0.2 Neut # (Auto) 6600 Lymph # (Auto) 600 L [place] # (Auto) 300 Eos # (Auto) 0 Baso # (Auto) 0 PT INR Sodium 137 Potassium 4.8 Chloride 107 Carbon Dioxide 26 BUN 14 Creatinine 0.66 Estimated GFR > 60.0 BUN/Creatinine Ratio 21.2 Glucose 168 H Lactate Calcium 9.5 Total Bilirubin AST ALT Alkaline Phosphatase Total Protein Albumin Globulin Albumin/Globulin Ratio Lipase SARS-CoV-2 (PCR) COUNT INCLUDES THE [facility] Medical History Chronic atrial fibrillation Hyperlipidemia Hypertension Surgical History History of partial colectomy Status post colostomy takedown Family History Mother Stroke Father Parkinson's disease (tremor, stiffness, slow motion, unstable posture) Social History household members: spouse alcohol intake: current Assessment & Plan Assessment & Plan narrative: ?1. 75W with PMH afib, HTN, HL who presents with abdominal pain found to have SBO. 1. Acute SBO -CT shows mid to distal small-bowel obstruction, transition zone involving the mid to distal small bowel -etiology likely adhesions from previous surgery -has pain and nausea -so far patient has felt ok without NG tube -continue IV fluids -appreciate surgical consult, Dr. Underwood, rect sbft -keep NPO 2. Chronic atrial fibrillation -continue metoprolol -holding coumadin -trend INR 3. Hyperlipidemia -holding statin while NPO 4. Hypertension -holding losartan while NPO Patient reports she is a full code, her is her surrogate decision maker, patient will be admitted as an inpatient as it is expected that her hospital stay will span greater than 48 hours Time Spent With Patient Critical Care time: I spent a total of [] minutes of critical care time on this patient's care today; this time is exclusive of procedural time.
--- NOTE | 2021-02-07 18:10 | PC.NURSE ---
Addendum entered by Cha Augustine R.N. 02/07/21 23:04: Encouraged deep breathing while pt in bed awake. Room air saturation level increases to 92-94%. Reglan given to manage nausea/vomiting. Pt turns self independently in bed. Addendum entered by Cha Augustine R.N. 02/07/21 22:03: Discussion with Dr. Vanessa re pt's [address] Vanessa suggest to patient two options. NG to LIS now to manage N/V or if further vomiting occurs NG to be placed. Addendum entered by Cha Augustine R.N. 02/07/21 19:42: 100 cc's yellow emesis by this patient reported by PROJECT COACH. Pt was given zofran iv as per emar. Assisted to bedside commode by staff and returned to bed. Pt reports pain is okay. Discussion with pt and pt's spouse re conservative use of narcotics as these may slow the motility and mobility of the gut. Original Note: Pt awakes from sleep in bed early in shift and denies pain and denies nausea. Able to position self and move self independently in bed. Ice chips provided @ bedside. Pt's spouse is present, attentive, and involved in pt's care. Discussion with both pt and pt's spouse re action of reglan. This was given as per emar. Bowel tones are active in all four quadrants. Abdomen is puffy but soft. Pt denies passing flatus. BL calf scd's in place.
[2021-02-08 04:30] VITALS: BP 123/68; PULSE 87; RESP 18; TEMP 37.4; O2SAT 97
[2021-02-08] MEDS: DEXTROSE 5%-0.9% NS 1,000 ML 100 ML IV (04:57)
--- NOTE | 2021-02-08 05:00 | DI.RAD.S_ITS ---
PROCEDURE: XR ABDOMEN 1V COMPARISON: [facility], CR, XR GASTROGRAFIN CHALLENGE, 02/07/2021, 14:06. INDICATIONS: gastrografin challenge in progress FINDINGS: Dilated air-filled loops of small bowel at and proximal large bowel are persistent, similar to the prior x-ray on 02/07/2021, yesterday, at 2:06 p.m.. Contrast has not shown any transit distally into the right lower quadrant since yesterday. IMPRESSION: For findings are consistent with persistent small-bowel obstruction. Dictated by: Asael Rudd M.D. on 02/08/2021 at 8:35 Approved by: Asael Rudd M.D. on 02/08/2021 at 8:37
[2021-02-08 05:54] LABS: Hematocrit 39.1 % (36-46); Hemoglobin 12.9 g/dL (12.0-16.0); Mean Corpuscular Volume 87.9 fL (80-100); Platelet Count 177 X10^3/uL (150-400); Red Blood Cell Count 4.45 X10^6/uL (4.0-5.2); Red Cell Distribution Width 15.1 % (11.6-14.8); White Blood Cell Count 11.5 X10^3/uL (4.5-11.0)
[2021-02-08 06:02] LABS: INR 4.2 (0.9-1.3); Prothrombin Time 49.2 SECONDS (10.1-12.7)
[2021-02-08 06:09] LABS: BUN Creatinine Ratio 21.5 (6-22); Blood Urea Nitrogen 14 mg/dL (7-17); Calcium 10.3 mg/dL (8.4-10.2); Carbon Dioxide 29 mmol/L (22-32); Chloride 110 mmol/L (98-107); Estimated Glomerular Filt Rate > 60.0 mL/min (>60); Glucose 159 mg/dL (80-110); HEMOLYSIS < 15 (0-50); Potassium 3.9 mmol/L (3.4-5.1); Sodium 142 mmol/L (137-145)
[2021-02-08] MEDS: METOCLOPRAMIDE 10 MG/2 ML INJ IV (06:27)
[2021-02-08 07:46] VITALS: BP 130/84; PULSE 97; RESP 18; TEMP 37; O2SAT 97
--- NOTE | 2021-02-08 09:13 | P.PN_ITS ---
Subjective Subjective Date Patient Seen: 02/08/21 Time Patient Seen: 09:13 Interval history: Multiple episodes of emesis overnight. NG tube in place. Repeat abdominal XR this AM with persistent bowel obstruction. Surgery would like to wait to give time to see if her bowel obstruction resolves. Exam Vital Signs (past 8 hours): - 02/08/21 04:30 02/08/21 07:46 Temperature 99.3 F 98.6 F Pulse Rate 87 97 H Respiratory Rate 18 18 Blood Pressure 123/68 130/84 Pulse Oximetry 97 97 Oxygen Delivery Method Room Air Oxygen Flow Rate 0 Narrative Exam Narrative: GEN: no acute distress, NG tube with clear / green tinged fluid CV: regular rate and rhythm PULM: clear bilaterally no wheezing rhochi or rales. ABD: soft, mild distension and tenderness. EXT: warm and well perfused with no edema NEURO: awake and alert, no focal deficits noted,falls asleep easily. Objective Labs Result Diagrams: 02/08/21 05:35 02/08/21 05:35 Labs: Laboratory Results - last 24 hr 02/08/21 02/08/21 02/08/21 05:35 05:35 05:35 WBC 11.5 H D RBC 4.45 Hgb 12.9 Hct 39.1 MCV 87.9 MCH 29.0 MCHC 33.0 RDW 15.1 H Plt Count 177 PT 49.2 H D INR 4.2 H Sodium 142 Potassium 3.9 Chloride 110 H Carbon Dioxide 29 BUN 14 Creatinine 0.65 Estimated GFR > 60.0 BUN/Creatinine Ratio 21.5 Glucose 159 H Calcium 10.3 H [facility] Medical History Chronic atrial fibrillation Hyperlipidemia Hypertension Surgical History History of partial colectomy Status post colostomy takedown Family History Mother Stroke Father Parkinson's disease (tremor, stiffness, slow motion, unstable posture) Social History household members: spouse alcohol intake: current Assessment & Plan Assessment & Plan narrative: 75W with PMH afib, HTN, HL who presents with abdominal pain found to have SBO. 1. Acute SBO -CT shows mid to distal small-bowel obstruction, transition zone involving the mid to distal small bowel -etiology likely adhesions from previous surgery -NG tube placed overnight -surgery, Dr. Unedrwood, following. 2. Chronic atrial fibrillation with supratherapeutic INR. -continue metoprolol -holding coumadin -trend INR, 4.2 today uptrending. Will give vitamin 5 mg IV today. 3. Hyperlipidemia -holding statin while NPO 4. Hypertension -holding losartan while NPO, BP currently controlled Patient reports she is a full code, her is her surrogate decision maker Time Spent With Patient Critical Care time: I spent a total of [] minutes of critical care time on this patient's care today; this time is exclusive of procedural time.
--- NOTE | 2021-02-08 09:39 | P.PN_ITS ---
Subjective Subjective Date Patient Seen: 02/08/21 Time Patient Seen: 09:40 Interval history: Sleeping heavily. NGT in place with green content in cannister. 1000 ml+ over last 24 hrs. NO advancement of contrast in G challenge. Exam Vital Signs (past 8 hours): - 02/08/21 04:30 02/08/21 07:46 Temperature 99.3 F 98.6 F Pulse Rate 87 97 H Respiratory Rate 18 18 Blood Pressure 123/68 130/84 Pulse Oximetry 97 97 Oxygen Delivery Method Room Air Oxygen Flow Rate 0 Narrative Exam Narrative: abdomen is soft, flat, no acute abdomen Objective Labs Result Diagrams: 02/08/21 05:35 02/08/21 05:35 Labs: Laboratory Results - last 24 hr 02/08/21 02/08/21 02/08/21 05:35 05:35 05:35 WBC 11.5 H D RBC 4.45 Hgb 12.9 Hct 39.1 MCV 87.9 MCH 29.0 MCHC 33.0 RDW 15.1 H Plt Count 177 PT 49.2 H D INR 4.2 H Sodium 142 Potassium 3.9 Chloride 110 H Carbon Dioxide 29 BUN 14 Creatinine 0.65 Estimated GFR > 60.0 BUN/Creatinine Ratio 21.5 Glucose 159 H Calcium 10.3 H PFSH Medical History Chronic atrial fibrillation Hyperlipidemia Hypertension Surgical History History of partial colectomy Status post colostomy takedown Family History Mother Stroke Father Parkinson's disease (tremor, stiffness, slow motion, unstabl e posture) Social History household members: spouse alcohol intake: current Assessment & Plan Assessment & Plan narrative: Persistent SBO, now with NGT and hydration. Gastrografin has not moved on to colon yet. INR >4. Plan: another 24hr of hydration and decompression, vitamin K per Dr. Ch for reversal. If no resolution in 24 hrs, exploratory laparotomy. Time Spent With Patient Time with patient: less than 30 minutes Critical Care time: I spent a total of [] minutes of critical care time on this patient's care today; this time is exclusive of procedural time.
[2021-02-08] MEDS: PHYTONADIONE (VIT K1) 5 MG in SODIUM CHLORIDE 0.9% 100 ML 201 ML IV (09:58)
[2021-02-08 10:25] VITALS: BP 122/75; PULSE 76
--- NOTE | 2021-02-08 10:29 | PC.NURSE ---
Glucose was checked at @10:25 and was 152.
--- NOTE | 2021-02-08 10:36 | PC.NURSE ---
Dr. Ch notified regarding patient's arrhythmia. No new orders received.
[2021-02-08 11:59] VITALS: BP 144/83; PULSE 79; RESP 15; TEMP 37.1; O2SAT 95
[2021-02-08 15:20] VITALS: BP 140/95; PULSE 83; RESP 15; TEMP 37.4; O2SAT 95
[2021-02-08] MEDS: DEXTROSE 5%-0.9% NS 1,000 ML 70 ML IV (15:52)
--- NOTE | 2021-02-08 16:16 | PC.NURSE ---
Addendum entered by Cha Augustine R.N. 02/08/21 20:55: Pt's urine is cloudy. Discussion with Dr. Donis and orders received to obtain UA. Addendum entered by Cha Augustine R.N. 02/08/21 20:09: Pt continues to deny pain and deny nausea. NG remains in place at LIS draining green fluid. Ice chips sparingly. Glycerin suppository administered as ordered. Assist to commode to void. Continent and incontinent. Original Note: Pt resting quietly in bed with eyes closed. Rouses easily to voice, but keeps eyes closed. Spouse is present in room with pt. Pt demonstrates slight confusion and requires reorientation. Discussion with pt's spouse outside of pt's room confirms has seen cognitive and speech decline in pt over the past month. States pt occasionally unable to complete sentences and can be disoriented to time and place. Bed alarm set for pt's safety. Pt is cooperative with care and follows commands appropriately. Fine crackles to right posterior lung garner. 02 2L nc oxygen saturation levels 93-94%. Dr. Ch was informed and rate of iv fluids was decreased. I.S. provided and instruction provided. Pt demonstrates weak effort and requires multiple explanations to use this device properly. Will reinforce. Able to perform to 250. NG to LIS draining green gastric contents. NG briefly off while bowel tones auscultated and these are absent. Abdomen is soft and nontender. Ice chips as per MD order and will provide sparingly. Pt denies pain. BL calf scd's in place.
[2021-02-08] MEDS: GLYCERIN SUPP ADULT 1 SUPP 1 EACH PR (19:00)
[2021-02-08 20:20] VITALS: BP 143/81; PULSE 83; RESP 14; TEMP 36.8; O2SAT 93
[2021-02-09] VITALS (8 sets, daily range): BP systolic 128–147; BP diastolic 66–94; PULSE 67–88; RESP 14–20; TEMP 35.6–37.2; O2SAT 93–96
[2021-02-09 06:15] LABS: Bilirubin Urine UA NEGATIVE (NEGATIVE); Color Urine UA YELLOW; Glucose Urine UA TRACE g/dL (Negative); Ketones Urine UA NEGATIVE (NEGATIVE); Leukocyte Esterase Urine UA NEGATIVE (NEGATIVE); Nitrite Urine UA NEGATIVE (Negative); Occult Blood Urine UA 1+ (Negative); Protein Urine UA TRACE (Negative); Urobilinogen Urine UA 0.2 E.U./dL (0.2)
[2021-02-09 06:16] LABS: Appearance Urine UA SL CLOUDY; pH Urine UA 6.5 (4.5-8.0)
[2021-02-09 06:17] LABS: Add Manual Diff / Slide Review NO; Basophils Absolute Auto 0 /uL (0-100); Basophils Percent Auto 0.3 % (0-2); Eosinophils Absolute Auto 0 /uL (0-450); Hematocrit 38.5 % (36-46); Hemoglobin 12.6 g/dL (12.0-16.0); Lymphocytes Absolute Auto 900 /uL (1100-4500); Lymphocytes Percent Auto 10.2 % (25-40); Mean Corpuscular HGB Conc 32.8 % (30-36); Mean Corpuscular Hemoglobin 29.1 PG (26-34); Mean Corpuscular Volume 88.8 fL (80-100); Monocytes Absolute Auto 800 /uL (0-900); Monocytes Percent Auto 8.5 % (3-14); Neutrophils Absolute Auto 7500 /uL (1500-7000); Platelet Count 152 X10^3/uL (150-400); Red Blood Cell Count 4.34 X10^6/uL (4.0-5.2); Red Cell Distribution Width 14.7 % (11.6-14.8); White Blood Cell Count 9.2 X10^3/uL (4.5-11.0)
[2021-02-09 06:19] LABS: RBC Urine 0-1/HPF (0-5/HPF)
[2021-02-09 06:20] LABS: Amorphous Sediment Urine 3+; Bacteria Urine Few (2-10); Mucus Urine 1+ (Negative); Squamous Epithelial Cell Urine 0-1 /HPF (0-5/HPF); WBC Urine None Seen (0-5/HPF)
[2021-02-09 06:21] LABS: Culture Indicated Urine Cult Not Indicated
[2021-02-09] MEDS: DEXTROSE 5%-0.9% NS 1,000 ML 70 ML IV ×2 (06:24→20:47)
[2021-02-09 06:33] LABS: INR 1.3 (0.9-1.3); Prothrombin Time 14.6 SECONDS (10.1-12.7)
[2021-02-09 06:38] LABS: BUN Creatinine Ratio 26.8 (6-22); Blood Urea Nitrogen 15 mg/dL (7-17); Calcium 9.6 mg/dL (8.4-10.2); Carbon Dioxide 33 mmol/L (22-32); Chloride 107 mmol/L (98-107); Estimated Glomerular Filt Rate > 60.0 mL/min (>60); Glucose 127 mg/dL (80-110); HEMOLYSIS < 15 (0-50); Magnesium 1.9 mg/dL (1.6-2.3); Potassium 3.5 mmol/L (3.4-5.1); Sodium 141 mmol/L (137-145)
--- NOTE | 2021-02-09 10:41 | PM.PN.1 ---
Subjective Subjective Date Patient Seen: 02/09/21 Time Patient Seen: 10:41 Interval history: Feels better. Passing gas Exam Vital Signs (past 8 hours): - 02/09/21 05:45 02/09/21 09:00 02/09/21 09:19 Temperature 98.6 F 98.4 F Pulse Rate 82 67 Respiratory Rate 18 14 Blood Pressure 128/66 131/87 Pulse Oximetry 93 95 94 Oxygen Delivery Method Nasal Cannula Oxygen Flow Rate 2 Narrative Exam Narrative: abdomen is soft and slightly distended. Objective Labs Result Diagrams: 02/09/21 05:38 02/09/21 05:38 Labs: Laboratory Results - last 24 hr 02/08/21 02/09/21 02/09/21 05:35 05:38 05:38 WBC 9.2 RBC 4.34 Hgb 12.6 Hct 38.5 MCV 88.8 MCH 29.1 MCHC 32.8 RDW 14.7 Plt Count 152 Neut % (Auto) 81.0 H Lymph % (Auto) 10.2 L [place] % (Auto) 8.5 Eos % (Auto) 0.0 L Baso % (Auto) 0.3 Neut # (Auto) 7500 H Lymph # (Auto) 900 L [place] # (Auto) 800 Eos # (Auto) 0 Baso # (Auto) 0 PT 14.6 H D INR 1.3 Sodium Potassium Chloride Carbon Dioxide BUN Creatinine Estimated GFR BUN/Creatinine Ratio Glucose Calcium Magnesium 2.0 Urine Color Urine Appearance Urine pH Ur Specific [place] Urine Protein Urine Glucose (UA) Urine Ketones Urine Occult Blood Urine Nitrate Urine Bilirubin Urine Urobilinogen Ur Leukocyte Esterase Urine RBC Urine WBC Ur Squamous Epith Cells Amorphous Sediment Urine Bacteria Urine Mucus Ur Culture Indicated? 02/09/21 02/09/21 05:38 05:50 WBC RBC Hgb Hct MCV MCH MCHC RDW Plt Count Neut % (Auto) Lymph % (Auto) [place] % (Auto) Eos % (Auto) Baso % (Auto) Neut # (Auto) Lymph # (Auto) [place] # (Auto) Eos # (Auto) Baso # (Auto) PT INR Sodium 141 Potassium 3.5 Chloride 107 Carbon Dioxide 33 H BUN 15 Creatinine 0.56 Estimated GFR > 60.0 BUN/Creatinine Ratio 26.8 H Glucose 127 H Calcium 9.6 Magnesium 1.9 Urine Color Yellow Urine Appearance Sl cloudy Urine pH 6.5 Ur Specific [place] 1.020 Urine Protein Trace H Urine Glucose (UA) Trace H Urine Ketones Negative Urine Occult Blood 1+ H Urine Nitrate Negative Urine Bilirubin Negative Urine Urobilinogen 0.2 Ur Leukocyte Esterase Negative Urine RBC 0-1/hpf Urine WBC None seen Ur Squamous Epith Cells 0-1 /hpf Amorphous Sediment 3+ Urine Bacteria Few (2-10) H Urine Mucus 1+ H Ur Culture Indicated? Cult not indicated PFSH Medical History (Reviewed 02/07/21 @ : by Riana Underwood MD) Chronic atrial fibrillation Hyperlipidemia Hypertension Surgical History (Reviewed 02/07/21 @ by Riana Underwood MD) History of partial colectomy Status post colostomy takedown Family History (Reviewed 02/07/21 @ : by Riana Underwood MD) Mother Stroke Father Parkinson's disease (tremor, stiffness, slow motion, unstable posture) Social History household members: spouse alcohol intake: current Assessment & Plan Assessment & Plan narrative: Possible resolving SBO. NGT output was elevated due to ice chip intake. INR is down to 1.3. at bedside with many questions Plan: NGT clamp trial. IF succesful then remove NGT. O/w return to LIS, continue observation and consider surgery tomorrow if not better. Time Spent With Patient Time with patient: 30 to 49 minutes with 50% spent counseling/coordinating care Critical Care time: I spent a total of [] minutes of critical care time on this patient's care today; this time is exclusive of procedural time.
--- NOTE | 2021-02-09 13:00 | PM.PN.1 ---
Subjective Subjective Date Patient Seen: 02/09/21 Time Patient Seen: 13:00 Interval history: Passed some gas overnight, no bowel movement. NG tube clamped today by surgery. Exam Vital Signs (past 8 hours): - 02/09/21 05:45 02/09/21 09:00 02/09/21 09:19 Temperature 98.6 F 98.4 F Pulse Rate 82 67 Respiratory Rate 18 14 Blood Pressure 128/66 131/87 Pulse Oximetry 93 95 94 Oxygen Delivery Method Nasal Cannula Oxygen Flow Rate 2 Narrative Exam Narrative: GEN: no acute distress, NG tube with clear / green tinged fluid CV: regular rate and rhythm PULM: clear bilaterally no wheezing rhochi or rales. ABD: soft, mild distension and tenderness. EXT: warm and well perfused with no edema NEURO: awake and alert, no focal deficits noted,falls asleep easily. Objective Labs Result Diagrams: 02/09/21 05:38 02/09/21 05:38 Labs: Laboratory Results - last 24 hr 02/09/21 02/09/21 02/09/21 05:38 05:38 05:38 WBC 9.2 RBC 4.34 Hgb 12.6 Hct 38.5 MCV 88.8 MCH 29.1 MCHC 32.8 RDW 14.7 Plt Count 152 Neut % (Auto) 81.0 H Lymph % (Auto) 10.2 L [place] % (Auto) 8.5 Eos % (Auto) 0.0 L Baso % (Auto) 0.3 Neut # (Auto) 7500 H Lymph # (Auto) 900 L [place] # (Auto) 800 Eos # (Auto) 0 Baso # (Auto) 0 PT 14.6 H D INR 1.3 Sodium 141 Potassium 3.5 Chloride 107 Carbon Dioxide 33 H BUN 15 Creatinine 0.56 Estimated GFR > 60.0 BUN/Creatinine Ratio 26.8 H Glucose 127 H Calcium 9.6 Magnesium 1.9 Urine Color Urine Appearance Urine pH Ur Specific [place] Urine Protein Urine Glucose (UA) Urine Ketones Urine Occult Blood Urine Nitrate Urine Bilirubin Urine Urobilinogen Ur Leukocyte Esterase Urine RBC Urine WBC Ur Squamous Epith Cells Amorphous Sediment Urine Bacteria Urine Mucus Ur Culture Indicated? 02/09/21 05:50 WBC RBC Hgb Hct MCV MCH MCHC RDW Plt Count Neut % (Auto) Lymph % (Auto) [place] % (Auto) Eos % (Auto) Baso % (Auto) Neut # (Auto) Lymph # (Auto) [place] # (Auto) Eos # (Auto) Baso # (Auto) PT INR Sodium Potassium Chloride Carbon Dioxide BUN Creatinine Estimated GFR BUN/Creatinine Ratio Glucose Calcium Magnesium Urine Color Yellow Urine Appearance Sl cloudy Urine pH 6.5 Ur Specific [place] 1.020 Urine Protein Trace H Urine Glucose (UA) Trace H Urine Ketones Negative Urine Occult Blood 1+ H Urine Nitrate Negative Urine Bilirubin Negative Urine Urobilinogen 0.2 Ur Leukocyte Esterase Negative Urine RBC 0-1/hpf Urine WBC None seen Ur Squamous Epith Cells 0-1 /hpf Amorphous Sediment 3+ Urine Bacteria Few (2-10) H Urine Mucus 1+ H Ur Culture Indicated? Cult not indicated PFSH Medical History Chronic atrial fibrillation Hyperlipidemia Hypertension Surgical History History of partial colectomy Status post colostomy takedown Family History Mother Stroke Father Parkinson's disease (tremor, stiffness, slow motion, unstable posture) Social History household members: spouse alcohol intake: current Assessment & Plan Assessment & Plan narrative: 75W with PMH afib, HTN, HL who presents with abdominal pain found to have SBO. 1. Acute SBO -CT shows mid to distal small-bowel obstruction, transition zone involving the mid to distal small bowel -etiology likely adhesions from previous surgery -NG tube placed -surgery, Dr. Underwood, following. 2. Chronic atrial fibrillation with supratherapeutic INR. -continue metoprolol -holding coumadin -INR improved after vitamin K yesterday. Now 1.4. Continue to hold pending possible surgery. 3. Hyperlipidemia -holding statin while NPO 4. Hypertension -holding losartan while NPO, BP currently controlled Patient reports she is a full code, her is her surrogate decision maker Time Spent With Patient Critical Care time: I spent a total of [] minutes of critical care time on this patient's care today; this time is exclusive of procedural time.
--- NOTE | 2021-02-09 14:30 | CM.DPC ---
DCP Cont: Checked in with patient. , Berto, was also in the room. She has NG tube in place, resting in bed. Introduced self and role to patient's . He has been in the room at bedside. At this time, suction is off on NG to see how much content is in canister. P: DCP will continue to check in and follow for any needed resources. Elizabeth Ochoa RN/[employer]
--- NOTE | 2021-02-09 15:22 | PC.NURSE ---
1430: Post NGT clamped for 4 hours, gastric contents checked for residual; 25 ml total. NGT removed as ordered. No nausea, passing flatus, abdomen, soft, non tender, and non distended. Weaned off O2, sats 93%.
[2021-02-10 05:31] LABS: Add Manual Diff / Slide Review NO; Basophils Absolute Auto 100 /uL (0-100); Basophils Percent Auto 0.7 % (0-2); Eosinophils Absolute Auto 200 /uL (0-450); Eosinophils Percent Auto 2.1 % (2-4); Hematocrit 39.8 % (36-46); Hemoglobin 13.1 g/dL (12.0-16.0); Lymphocytes Absolute Auto 1400 /uL (1100-4500); Lymphocytes Percent Auto 17.4 % (25-40); Mean Corpuscular Volume 87.9 fL (80-100); Monocytes Absolute Auto 800 /uL (0-900); Monocytes Percent Auto 9.3 % (3-14); Neutrophils Absolute Auto 5700 /uL (1500-7000); Neutrophils Percent Auto 70.5 % (50-75); Platelet Count 155 X10^3/uL (150-400); Red Blood Cell Count 4.52 X10^6/uL (4.0-5.2); Red Cell Distribution Width 14.6 % (11.6-14.8); White Blood Cell Count 8.1 X10^3/uL (4.5-11.0)
[2021-02-10 05:42] LABS: INR 1.3 (0.9-1.3); Prothrombin Time 14.2 SECONDS (10.1-12.7)
[2021-02-10 05:47] LABS: Blood Urea Nitrogen 14 mg/dL (7-17); Calcium 9.2 mg/dL (8.4-10.2); Carbon Dioxide 31 mmol/L (22-32); Chloride 108 mmol/L (98-107); Estimated Glomerular Filt Rate > 60.0 mL/min (>60); Glucose 105 mg/dL (80-110); HEMOLYSIS < 15 (0-50); Magnesium 1.9 mg/dL (1.6-2.3); Potassium 3.3 mmol/L (3.4-5.1); Sodium 140 mmol/L (137-145)
[2021-02-10 06:20] VITALS: BP 142/92; PULSE 79; RESP 16; TEMP 36.8; O2SAT 95
[2021-02-10 08:05] VITALS: BP 139/105; PULSE 87; RESP 18; TEMP 36.6; O2SAT 95
[2021-02-10 09:48] VITALS: BP 139/105; PULSE 87
[2021-02-10] MEDS: LOSARTAN 25 MG TABLET PO (09:48)
[2021-02-10] MEDS: DEXTROSE 5%-0.9% NS 1,000 ML 70 ML IV (09:48)
--- NOTE | 2021-02-10 10:36 | P.PN_ITS ---
Subjective Subjective Date Patient Seen: 02/10/21 Time Patient Seen: 10:36 Interval history: Reports no gas or BM. NG tube removed by surgery. Started on clears. Has some mild abdominal pain, but no nausea or emesis. Exam Vital Signs (past 8 hours): - 02/10/21 06:20 02/10/21 08:05 02/10/21 09:48 Temperature 98.3 F 97.9 F Pulse Rate 79 87 87 Respiratory Rate 16 18 Blood Pressure 142/92 H 139/105 H 139/105 H Pulse Oximetry 95 95 Oxygen Delivery Method Nasal Cannula Oxygen Flow Rate 1 Narrative Exam Narrative: GEN: appears uncomfortable, acutely ill and fatigued. CV: regular rate and rhythm PULM: clear bilaterally no wheezing rhochi or rales. ABD: soft, mild distension and tenderness. EXT: warm and well perfused with no edema NEURO: awake and alert, no focal deficits noted,falls asleep easily. Objective Labs Result Diagrams: 02/10/21 05:18 02/10/21 05:18 Labs: Laboratory Results - last 24 hr 02/10/21 02/10/21 02/10/21 05:18 05:18 05:18 WBC 8.1 RBC 4.52 Hgb 13.1 Hct 39.8 MCV 87.9 MCH 29.0 MCHC 33.0 RDW 14.6 Plt Count 155 Neut % (Auto) 70.5 Lymph % (Auto) 17.4 L [place] % (Auto) 9.3 Eos % (Auto) 2.1 Baso % (Auto) 0.7 Neut # (Auto) 5700 Lymph # (Auto) 1400 [place] # (Auto) 800 Eos # (Auto) 200 Baso # (Auto) 100 PT 14.2 H INR 1.3 Sodium 140 Potassium 3.3 L Chloride 108 H Carbon Dioxide 31 BUN 14 Creatinine 0.56 Estimated GFR > 60.0 BUN/Creatinine Ratio 25.0 H Glucose 105 Calcium 9.2 Magnesium 1.9 PFSH Medical History Chronic atrial fibrillation Hyperlipidemia Hypertension Surgical History History of partial colectomy Status post colostomy takedown Family History Mother Stroke Father Parkinson's disease (tremor, stiffness, slow motion, unstable posture) Social History household members: spouse alcohol intake: current Assessment & Plan Assessment & Plan narrative: 75W with PMH afib, HTN, HL who presents with abdominal pain found to have SBO. 1. Acute SBO -CT shows mid to distal small-bowel obstruction, transition zone involving the mid to distal small bowel -etiology likely adhesions from previous surgery -NG tube placed initlally, removed today. -surgery, Dr. Underwood, following. 2. Chronic atrial fibrillation with supratherapeutic INR. -continue metoprolol if able to tolerate oral intake. -holding coumadin -INR improved after vitamin K yesterday. Now 1.4. Continue to hold pending possible surgery. Resume tomorrow if she starts to improve. 3. Hyperlipidemia -holding statin 4. Hypertension -holding losartan while NPO Patient reports she is a full code, her is her surrogate decision maker Time Spent With Patient Critical Care time: I spent a total of [] minutes of critical care time on this patient's care today; this time is exclusive of procedural time.
--- NOTE | 2021-02-10 10:43 | PM.PN.1 ---
Subjective Subjective Date Patient Seen: 02/10/21 Time Patient Seen: 08:50 Interval history: No nausea, no BM, no flatus Exam Vital Signs (past 8 hours): - 02/10/21 06:20 02/10/21 08:05 02/10/21 09:48 Temperature 98.3 F 97.9 F Pulse Rate 79 87 87 Respiratory Rate 16 18 Blood Pressure 142/92 H 139/105 H 139/105 H Pulse Oximetry 95 95 Oxygen Delivery Method Nasal Cannula Oxygen Flow Rate 1 Narrative Exam Narrative: Abdomen is soft nontender. Slightly distended, no bowel tones. Objective Labs Result Diagrams: 02/10/21 05:18 02/10/21 05:18 Labs: Laboratory Results - last 24 hr 02/10/21 02/10/21 02/10/21 05:18 05:18 05:18 WBC 8.1 RBC 4.52 Hgb 13.1 Hct 39.8 MCV 87.9 MCH 29.0 MCHC 33.0 RDW 14.6 Plt Count 155 Neut % (Auto) 70.5 Lymph % (Auto) 17.4 L [place] % (Auto) 9.3 Eos % (Auto) 2.1 Baso % (Auto) 0.7 Neut # (Auto) 5700 Lymph # (Auto) 1400 [place] # (Auto) 800 Eos # (Auto) 200 Baso # (Auto) 100 PT 14.2 H INR 1.3 Sodium 140 Potassium 3.3 L Chloride 108 H Carbon Dioxide 31 BUN 14 Creatinine 0.56 Estimated GFR > 60.0 BUN/Creatinine Ratio 25.0 H Glucose 105 Calcium 9.2 Magnesium 1.9 PFSH Medical History Chronic atrial fibrillation Hyperlipidemia Hypertension Surgical History History of partial colectomy Status post colostomy takedown Family History Mother Stroke Father Parkinson's disease (tremor, stiffness, slow motion, unstable posture) Social History household members: spouse alcohol intake: current Assessment & Plan Assessment & Plan narrative: Persistent small bowel obstruction. Gastrografin challenge did not radiographically flow through, nor she had a bowel movement related to it. However NG tube was able to be removed yesterday due to successful clamp trial. She has no nausea or vomiting overnight and feels that she could drink fluids. Plan: Continue observation. Continue IV hydration. And trial of clear liquids. Time Spent With Patient Time with patient: less than 30 minutes Critical Care time: I spent a total of [] minutes of critical care time on this patient's care today; this time is exclusive of procedural time.
[2021-02-10 12:00] VITALS: BP 133/89; PULSE 82; RESP 18; TEMP 36.6; O2SAT 95
[2021-02-10 15:14] VITALS: BP 147/101; PULSE 88; RESP 22; TEMP 37; O2SAT 95
[2021-02-10 20:05] VITALS: BP 154/88; PULSE 90; RESP 18; TEMP 37.4; O2SAT 94
--- NOTE | 2021-02-10 21:32 | PC.NURSE ---
Patient able to have small bowel movement with gas bubbles x4. Informed Dr. Vanessa as well as that she had a run of V tach reported to me by ICU nurse. Patient asymptomatic. Provider aware.
[2021-02-11] VITALS (7 sets, daily range): BP systolic 130–155; BP diastolic 80–90; PULSE 78–95; RESP 17–20; TEMP 36.5–36.9; O2SAT 94–96
[2021-02-11] MEDS: DEXTROSE 5%-0.9% NS 1,000 ML 70 ML IV (00:49)
[2021-02-11 05:41] LABS: Add Manual Diff / Slide Review NO; Basophils Absolute Auto 100 /uL (0-100); Basophils Percent Auto 0.8 % (0-2); Eosinophils Absolute Auto 200 /uL (0-450); Eosinophils Percent Auto 2.2 % (2-4); Hematocrit 39.8 % (36-46); Hemoglobin 13.4 g/dL (12.0-16.0); Lymphocytes Absolute Auto 1100 /uL (1100-4500); Lymphocytes Percent Auto 15.3 % (25-40); Mean Corpuscular HGB Conc 33.7 % (30-36); Mean Corpuscular Hemoglobin 29.3 PG (26-34); Mean Corpuscular Volume 86.8 fL (80-100); Monocytes Absolute Auto 700 /uL (0-900); Monocytes Percent Auto 9.9 % (3-14); Neutrophils Absolute Auto 5100 /uL (1500-7000); Neutrophils Percent Auto 71.8 % (50-75); Platelet Count 168 X10^3/uL (150-400); Red Blood Cell Count 4.58 X10^6/uL (4.0-5.2); Red Cell Distribution Width 14.3 % (11.6-14.8); White Blood Cell Count 7.1 X10^3/uL (4.5-11.0)
[2021-02-11 05:48] LABS: INR 1.3 (0.9-1.3); Prothrombin Time 15.2 SECONDS (10.1-12.7)
[2021-02-11 05:53] LABS: Blood Urea Nitrogen 8 mg/dL (7-17); Calcium 9.1 mg/dL (8.4-10.2); Carbon Dioxide 27 mmol/L (22-32); Chloride 107 mmol/L (98-107); Estimated Glomerular Filt Rate > 60.0 mL/min (>60); Glucose 115 mg/dL (80-110); HEMOLYSIS < 15 (0-50); Magnesium 1.8 mg/dL (1.6-2.3); Potassium 3.1 mmol/L (3.4-5.1); Sodium 136 mmol/L (137-145)
--- NOTE | 2021-02-11 06:17 | PC.NURSE ---
Denies any abdominal pain & nausea all shift. Assisted to the bathroom voided 500 cc & had a large loose bowel movement this morning. Will cont. POC & monitor.
--- NOTE | 2021-02-11 06:24 | PC.NURSE ---
Dr. Vanessa notified Potassium level was 3.1.
[2021-02-11] MEDS: POTASSIUM CHLORIDE IN WATER 10 MEQ/100 ML PIGGYBACK 100 MEQ IV (06:48)
[2021-02-11] MEDS: POTASSIUM CHLORIDE 20 MEQ/15 ML UDC 40 MEQ PO (08:47)
[2021-02-11] MEDS: LOSARTAN 25 MG TABLET PO (08:48)
--- NOTE | 2021-02-11 10:29 | CM.DPC ---
DCP Cont: Discussed patient during team rounds. NG tube was discontinued, and she has been on clear liquids, which she is tolerating. Hospitalist may be consulting with surgery to advance her diet. She could possibly discharge home today. P: DCP to continue to follow. Patient could possibly discharge today, pending advancement of diet, and her being able to tolerate. Elizabeth Ochoa RN/[employer]ographer [employer]
[2021-02-11] MEDS: METOPROLOL ER 50 MG TABLET PO (11:00)
--- NOTE | 2021-02-11 11:24 | PM.PN.1 ---
Subjective Subjective Date Patient Seen: 02/11/21 Time Patient Seen: 11:24 Interval history: large BM, passing gas Exam Vital Signs (past 8 hours): - 02/11/21 05:30 02/11/21 07:28 02/11/21 08:48 Temperature 98.5 F 98.5 F Pulse Rate 87 80 78 Respiratory Rate 18 17 Blood Pressure 130/89 134/80 134/80 Pulse Oximetry 95 96 02/11/21 11:00 Temperature Pulse Rate 78 Respiratory Rate Blood Pressure 134/80 Pulse Oximetry Oxygen Delivery Method Room Air Oxygen Flow Rate 0 Narrative Exam Narrative: Patient appears better. Abdomen is soft and not tender Objective Labs Result Diagrams: 02/11/21 05:25 02/11/21 05:25 Labs: Laboratory Results - last 24 hr 02/11/21 02/11/21 02/11/21 05:25 05:25 05:25 WBC 7.1 RBC 4.58 Hgb 13.4 Hct 39.8 MCV 86.8 MCH 29.3 MCHC 33.7 RDW 14.3 Plt Count 168 Neut % (Auto) 71.8 Lymph % (Auto) 15.3 L [place] % (Auto) 9.9 Eos % (Auto) 2.2 Baso % (Auto) 0.8 Neut # (Auto) 5100 Lymph # (Auto) 1100 [place] # (Auto) 700 Eos # (Auto) 200 Baso # (Auto) 100 PT 15.2 H INR 1.3 Sodium 136 L Potassium 3.1 L Chloride 107 Carbon Dioxide 27 BUN 8 Creatinine 0.50 L Estimated GFR > 60.0 BUN/Creatinine Ratio 16.0 Glucose 115 H Calcium 9.1 Magnesium 1.8 PFSH Medical History Chronic atrial fibrillation Hyperlipidemia Hypertension Surgical History History of partial colectomy Status post colostomy takedown Family History Mother Stroke Father Parkinson's disease (tremor, stiffness, slow motion, unstable posture) Social History household members: spouse alcohol intake: current Assessment & Plan Assessment & Plan narrative: Resolving SBO. Advance diet as tolerated with potential discharge this evening or tomorrow. Anticoagulation per medical team. Time Spent With Patient Time with patient: less than 30 minutes Critical Care time: I spent a total of [] minutes of critical care time on this patient's care today; this time is exclusive of procedural time.
--- NOTE | 2021-02-11 13:04 | P.DS_ITS ---
History of Present Illness History of Present Illness Date Patient Seen: 02/11/21 Time Patient Seen: 13:04 Chief complaint: abd pain all day Narrative: Per Dr. Vanessa, The patient is a 75-year-old female with a history of hypertension, chronic atrial fibrillation on Coumadin, and a remote history of a colectomy and subsequent colostomy takedown.? The patient was in her usual state of health until earlier today.? She developed abrupt onset of abdominal pain which was fairly severe.? She describes the pain as diffuse, 8/10 in intensity.? She had 1 episode of vomiting.? The patient states she normally has diarrhea, however she has not had a bowel movement for the past 2 days.? Because of her significant abdominal pain the patient presented to the hospital for evaluation.? She reported no fever or chills.? She has mild shortness of breath which is new.? She denies any chest pain or palpitations.? She has no dysuria hematuria or py uria.? Patient denies any hematemesis melena or bright red blood per rectum.? On evaluation in the emergency department she was found to have a a white count of 7.2, protime 28.8 with an INR of 2.5.? Calcium 10.3, total bili 2.2, ALT of 37.? CT scan of the abdomen and pelvis revealed the following:?Finding is suggestive of mid to distal small bowel obstruction with zone of transition likely involving mid to distal small bowel in anterior mid to lower abdomen near asurgical clip as above.This possibly represents bowel obstruction secondary to surgical adhesion given patient'shistory of prior partial colectomy.? No gross abnormal bowel wall thickening.? No free fluid or free air.2. Cholelithiasis without CT evidence of acute cholecystitis.? 3.? Bibasilar dependent atelectasis.? Patient is admitted to the hospital for small-bowel obstruction Discharge Providers Provider Date of admission: 02/06/21 21:56 Discharge Date: 02/11/21 Primary care physician: Winifred Baird MD Consults: 02/06/21 22:37 Consult to Physician Routine Comment: Consulting Provider: Riana Underwood Reason for consultation: SBO Has provider been notified: Yes Discharge provider: John Ch DO Summary Hospital Course Discharge Diagnosis: 1. Acute SBO 2. Chronic atrial fibrillation with supratherapeutic INR. 3. Hyperlipidemia 4. Hypertension Hospital Course: Patient is a 75-year-old female with a past medical history of chronic atrial fibrillation on Coumadin, hyperlipidemia, and hypertension who was admitted with acute small-bowel obstruction secondary to adhesive disease. Coumadin was held initially and at 1st it appeared that the patient may need to go for surgery given persistent obstruction, she was given vitamin K as her INR actually increased to 4.2 despite warfarin being held. INR the next day was 1.4. Thankfully, the patient had resolution of her small-bowel obstruction with NG tube decompression and she began to pass gas and have bowel movements. On the day of discharge she had a large bowel movement and was able to tolerate a regular lunch without abdominal pain, discomfort, or nausea. She was discharged home. I do recommend follow-up with her primary care provider after resuming her home Coumadin for an INR check. Appreciate assistance with management by General surgery, Dr. Underwood. Time Spent with Patient Time spent: Greater than 30 minutes Exam Vital Signs (past 8 hours): - 02/11/21 05:30 02/11/21 07:28 02/11/21 08:48 Temperature 98.5 F 98.5 F Pulse Rate 87 80 78 Respiratory Rate 18 17 Blood Pressure 130/89 134/80 134/80 Pulse Oximetry 95 96 02/11/21 11:00 02/11/21 11:20 Temperature 98.2 F Pulse Rate 78 80 Respiratory Rate 19 Blood Pressure 134/80 155/81 H Pulse Oximetry 94 Oxygen Delivery Method Room Air Oxygen Flow Rate 0 Narrative Exam Narrative: GEN: appears comfortable, but fatigued. Still much improved CV: regular rate and rhythm PULM: clear bilaterally no wheezing rhochi or rales. ABD: soft, non-distended without tenderness. EXT: warm and well perfused with no edema NEURO: awake and alert, no focal deficits noted. Objective Labs Result Diagrams: 02/11/21 05:25 02/11/21 05:25 Labs: Laboratory Results - last 24 hr 02/11/21 02/11/21 02/11/21 05:25 05:25 05:25 WBC 7.1 RBC 4.58 Hgb 13.4 Hct 39.8 MCV 86.8 MCH 29.3 MCHC 33.7 RDW 14.3 Plt Count 168 Neut % (Auto) 71.8 Lymph % (Auto) 15.3 L [place] % (Auto) 9.9 Eos % (Auto) 2.2 Baso % (Auto) 0.8 Neut # (Auto) 5100 Lymph # (Auto) 1100 [place] # (Auto) 700 Eos # (Auto) 200 Baso # (Auto) 100 PT 15.2 H INR 1.3 Sodium 136 L Potassium 3.1 L Chloride 107 Carbon Dioxide 27 BUN 8 Creatinine 0.50 L Estimated GFR > 60.0 BUN/Creatinine Ratio 16.0 Glucose 115 H Calcium 9.1 Magnesium 1.8 PFSH Medical History Chronic atrial fibrillation Hyperlipidemia Hypertension Surgical History History of partial colectomy Status post colostomy takedown Family History Mother Stroke Father Parkinson's disease (tremor, stiffness, slow motion, unstable posture) Social History household members: spouse alcohol intake: current Discharge Plan Discharge Plan Patient Disposition: Home Provider Discharge Comment: You were admitted to the hospital with a small bowel obstruction, you improved with time and decompression (tube in your nose). No medication changes are needed upon discharge. Please follow up with your PCP to restart coumadin and INR checks. you can restart coumadin tonight. Discharge orders & Medications Prescriptions: Continued metoprolol succinate 50 MG tablet extended release 24 hr 50 mg PO BID Qty: 0 RF: 0 warfarin 5 mg tablet 5 mg PO 3XW RF: 0 losartan 25 mg tablet 25 mg PO BEDTIME RF: 0 rosuvastatin 5 mg tablet 5 mg PO DAILY RF: 0 Follow up/Referrals: Winifred Baird MD [Primary Care Provider] - Diet/Activity/Treatments Diet: Diet as Tolerated Activity: As tolerated Discharge Data Primary Care Provider: Winifred Baird
--- NOTE | 2021-02-11 14:55 | PC.NURSE ---
Pt A&O x3. VSS, afebrile on RA. AFiB on telemetry with history of AFIB. She denies N/V, abdominal pain and tolerates general diet this shift. Pt is cleared for discharge this afternoon after lunch. She is restarted on metoprolol this shift. One bout of tachycardia lasting >4 mins HR 120-150's while up to BR. Pt denies dizziness, Chest discomfort or feeling palpitations/ symptoms. She recovers quickly after lying down. Pt later ambulating around the vega with normal heart rate and asymptomatic. MD states she is still cleared to discharge home with , as medications restarted. Pt 's supportive assisted RN to escort patient via w/ch to private vehicle for discharge home with all of her belongings. She verbalizes understanding of medications, follow up appointments and worsening symptoms.
== END 2021-02-11 14:50 | disposition home or self-care (01) | DRG 389 ==
LOC: ED 21:11 → AC 02-07 07:54
PROVIDERS: Emergency Medicine; Internal Medicine; Admitting Provider Internal Medicine; Emergency Provider Emergency Medicine; PCP Internal Medicine; Referring Provider Emergency Medicine; Visit Provider Internal Medicine
DX: K56.50 Intestinal adhesions [bands], unspecified as to partial versus complete obstruction (principal); I48.20 Chronic atrial fibrillation, unspecified; Z79.01 Long term (current) use of anticoagulants; E78.5 Hyperlipidemia, unspecified; I10 Essential (primary) hypertension; R79.1 Abnormal coagulation profile; Z20.822 Contact with and (suspected) exposure to COVID-19
CPT/HCPCS: 36415; 74018; 74177; 80048; 80053; 81001; 81003; 83605; 83690; 83735; 85025; 85027; 85610; 87040; 87635; 93005; 93010; 94760; 96361; 96374; 99231; 99232; 99284; C9803; J1170; J2405; J2765; J3430

== ENCOUNTER → 2021-06-04 09:51 | Outpatient (CLI) | payer MEDICARE, SELFPAY ==
[2021-02-06 22:15] VITALS: BMI 29.0
[2021-06-04 10:40] LABS: Add Manual Diff / Slide Review NO; Basophils Absolute Auto 100 /uL (0-100); Eosinophils Absolute Auto 300 /uL (0-450); Eosinophils Percent Auto 4.4 % (2-4); Hematocrit 41.3 % (36-46); Lymphocytes Absolute Auto 1900 /uL (1100-4500); Lymphocytes Percent Auto 28.5 % (25-40); Mean Corpuscular HGB Conc 33.8 % (30-36); Mean Corpuscular Volume 85.9 fL (80-100); Monocytes Absolute Auto 500 /uL (0-900); Monocytes Percent Auto 8.1 % (3-14); Neutrophils Absolute Auto 3800 /uL (1500-7000); Platelet Count 185 X10^3/uL (150-400); Red Blood Cell Count 4.81 X10^6/uL (4.0-5.2); Red Cell Distribution Width 15.2 % (11.6-14.8); White Blood Cell Count 6.6 X10^3/uL (4.5-11.0)
[2021-06-04 10:56] LABS: BUN Creatinine Ratio 16.5 (6-22); Blood Urea Nitrogen 14 mg/dL (7-17); Calcium 10.3 mg/dL (8.4-10.2); Carbon Dioxide 25 mmol/L (22-32); Chloride 109 mmol/L (98-107); Cholesterol 133 mg/dL (140-199); Estimated Glomerular Filt Rate > 60.0 mL/min (>60); Glucose 106 mg/dL (80-110); HDL Cholesterol 64 mg/dL (40-60); HEMOLYSIS < 15 (0-50); LDL Cholesterol Calculated 51 mg/dL (<100); Potassium 4.3 mmol/L (3.4-5.1); Sodium 140 mmol/L (137-145); Triglycerides 89 mg/dL (35-150)
== END ==
PROVIDERS: PCP Internal Medicine; Referring Provider Internal Medicine Cardiovascular Disease; Visit Provider Internal Medicine Cardiovascular Disease
DX: E78.5 Hyperlipidemia, unspecified (principal); I10 Essential (primary) hypertension
CPT/HCPCS: 36415; 80048; 80061; 85025

== ENCOUNTER → 2021-07-18 13:43 | Outpatient (CLI) | payer MEDICARE, SELFPAY ==
[2021-02-06 22:15] VITALS: BMI 29.0
--- NOTE | 2021-07-18 | DI.MRI.S_ITS ---
PROCEDURE: MR HEAD/BRAIN WO CON INDICATIONS: Memory impairment TECHNIQUE: Noncontrast axial T1 spin echo, axial T2 fast spin echo, sagittal and axial FLAIR, coronal T2 fast spin echo, axial gradient echo, axial diffusion and ADC through the brain. COMPARISON: None. FINDINGS: Cerebrum, Cerebellum and Brainstem: Mild cerebral and cerebellar volume loss as well as mild multifocal hyperintensities in the deep and subcortical white matter present. The diffusion sequence is normal without evidence of acute infarct. No intracranial hemorrhage, mass lesion or midline shift. Basal cisterns and foramen magnum contain appropriate anatomy and vascular flow voids. No evidence of dural or leptomeningeal thickening. Ventricles: Appropriate in size and position. No hydrocephalus. Skull Base: The bony sella, pituitary gland and infundibulum unremarkable. Clivus and craniovertebral relationships are appropriate. Visualized portions of the seventh and eighth cranial nerve complexes and internal auditory canals are within normal limits. Scalp and Calvarium: The scalp is unremarkable. Underlying calvarium has an appropriate marrow signal. Paranasal Sinuses: Visualized portions of the paranasal sinuses are clear. Mastoids: Unremarkable as visualized. No mastoid effusion present. Orbits: The orbits, globes and ocular muscles are unremarkable. IMPRESSION: Atrophy and chronic ischemic change without acute hemorrhage or mass effect. Approved by: Rufino Coyne M.D. on 07/18/2021 at 16:25
== END ==
PROVIDERS: PCP Internal Medicine; Referring Provider Internal Medicine Cardiovascular Disease; Visit Provider Internal Medicine Cardiovascular Disease
DX: R41.3 Other amnesia (principal); G31.9 Degenerative disease of nervous system, unspecified
CPT/HCPCS: 70551

== ENCOUNTER → 2021-09-18 09:18 | Outpatient (CLI) | payer MEDICARE, SELFPAY ==
[2021-02-06 22:15] VITALS: BMI 29.0
[2021-09-18 11:16] LABS: TSH w/ Reflex to FT4 2.65 uIU/mL (0.47-4.68)
[2021-09-18 12:03] LABS: Vitamin B12 519 pg/mL (239-931)
== END ==
PROVIDERS: PCP Internal Medicine; Referring Provider Internal Medicine; Visit Provider Internal Medicine
DX: E07.9 Disorder of thyroid, unspecified (principal); E53.8 Deficiency of other specified B group vitamins
CPT/HCPCS: 36415; 82607; 84443

== ENCOUNTER → 2021-12-17 14:08 | Outpatient (CLI) | payer MEDICARE, SELFPAY ==
[2021-02-06 22:15] VITALS: BMI 29.0
--- NOTE | 2021-12-17 | DI.MG.S_ITS ---
BILATERAL DIGITAL SCREENING MAMMOGRAM 3D/2D WITH CAD: 12/17/2021 CLINICAL: Routine screening. Family history of breast cancer. Comparison is made to exams dated: 12/04/2020 mammogram, 11/21/2019 mammogram, 10/15/2018 mammogram, and 10/07/2017 mammogram - [facility]. The tissue of both breasts is heterogeneously dense. This may lower the sensitivity of mammography. Current study was also evaluated with a Computer Aided Detection (CAD) system. There are benign diffuse calcifications in the right breast. There also are benign calcifications in the left breast. Additionally, there are benign post operative findings in the right breast. No significant masses, calcifications, or other findings are seen in either breast. There has been no significant interval change. IMPRESSION: BENIGN There is no mammographic evidence of malignancy. A 1 year screening mammogram is recommended. Based on the Tyrer Cuzick model (a risk assessment model) the patient's lifetime risk is 3.2% and her 10 year risk is 2.9%. According to the ACR, ACS, and NCCN guidelines, an annual breast MRI exam along with mammogram is recommended if the patient's lifetime risk is 20% or greater. This exam was interpreted at Station ID: [id number]. NOTE: For mammograms, a report in lay terms will be sent to the patient. Approximately 15% of breast malignancies will not be visualized mammographically. In the management of a palpable breast mass, a negative mammogram must not discourage biopsy of a clinically suspicious lesion. Electronically Signed By: Vinay pierce/yessica:12/17/2021 17:49:02 letter sent: Normal Exam ACR BI-RADS Category 2: Benign Finding(s) [id number]
== END ==
PROVIDERS: PCP Internal Medicine; Referring Provider Internal Medicine; Visit Provider Internal Medicine
DX: Z12.31 Encounter for screening mammogram for malignant neoplasm of breast (principal); Z80.3 Family history of malignant neoplasm of breast
CPT/HCPCS: 77063; 77067

== ENCOUNTER → 2022-01-29 09:01 | Outpatient (CLI) | payer MEDICARE, SELFPAY ==
[2021-02-06 22:15] VITALS: BMI 29.0
[2022-01-29 11:13] LABS: INR 3.6 (0.9-1.3); Prothrombin Time 41.7 SECONDS (10.1-12.7)
== END ==
PROVIDERS: PCP Internal Medicine; Referring Provider Internal Medicine; Visit Provider Internal Medicine
DX: Z79.01 Long term (current) use of anticoagulants (principal)
CPT/HCPCS: 36415; 85610

== ENCOUNTER → 2022-02-11 12:28 | Outpatient (CLI) | payer MEDICARE, SELFPAY ==
[2021-02-06 22:15] VITALS: BMI 29.0
[2022-02-11 13:05] LABS: INR 2.9 (0.9-1.3); Prothrombin Time 33.3 SECONDS (10.1-12.7)
== END ==
PROVIDERS: PCP Internal Medicine; Referring Provider Internal Medicine; Visit Provider Internal Medicine
DX: Z79.01 Long term (current) use of anticoagulants (principal); I48.20 Chronic atrial fibrillation, unspecified
CPT/HCPCS: 36415; 85610

== ENCOUNTER → 2022-02-25 09:05 | Outpatient (CLI) | payer MEDICARE, SELFPAY ==
[2021-02-06 22:15] VITALS: BMI 29.0
[2022-02-25 10:07] LABS: INR 3.2 (0.9-1.3)
== END ==
PROVIDERS: PCP Internal Medicine; Referring Provider Internal Medicine; Visit Provider Internal Medicine
DX: Z79.01 Long term (current) use of anticoagulants (principal); I48.20 Chronic atrial fibrillation, unspecified
CPT/HCPCS: 36415; 85610

== ENCOUNTER → 2022-03-11 09:04 | Outpatient (CLI) | payer MEDICARE, SELFPAY ==
[2021-02-06 22:15] VITALS: BMI 29.0
[2022-03-11 10:36] LABS: Prothrombin Time 34.7 SECONDS (10.1-12.7)
== END ==
PROVIDERS: PCP Internal Medicine; Referring Provider Internal Medicine; Visit Provider Internal Medicine
DX: I48.20 Chronic atrial fibrillation, unspecified (principal); Z79.01 Long term (current) use of anticoagulants
CPT/HCPCS: 36415; 85610

== ENCOUNTER → 2022-03-21 13:05 | Outpatient (CLI) | payer MEDICARE, SELFPAY ==
[2021-02-06 22:15] VITALS: BMI 29.0
[2022-03-21 15:44] LABS: Hemoglobin 12.6 g/dL (12.0-16.0); Mean Corpuscular HGB Conc 33.1 % (30-36); Mean Corpuscular Hemoglobin 26.5 PG (26-34); Platelet Count 240 X10^3/uL (150-400); Red Blood Cell Count 4.75 X10^6/uL (4.0-5.2); Red Cell Distribution Width 15.1 % (11.6-14.8); White Blood Cell Count 6.9 X10^3/uL (4.5-11.0)
[2022-03-21 15:52] LABS: INR 2.1 (0.9-1.3); Prothrombin Time 23.9 SECONDS (10.1-12.7)
[2022-03-21 16:07] LABS: Alanine Aminotransferase 27 IU/L (<35); Albumin 4.2 g/dL (3.5-5.0); Albumin Globulin Ratio 1.3 (1.0-2.8); Alkaline Phosphatase 67 U/L (38-126); Aspartate Aminotransferase 29 IU/L (14-36); BUN Creatinine Ratio 16.9 (6-22); Bilirubin Total 1.4 mg/dL (0.2-1.3); Blood Urea Nitrogen 15 mg/dL (7-17); Calcium 10.2 mg/dL (8.4-10.2); Carbon Dioxide 23 mmol/L (22-32); Chloride 106 mmol/L (98-107); Cholesterol 132 mg/dL (140-199); Estimated Glomerular Filt Rate > 60 mL/min (>60); Globulin 3.3 g/dL (1.7-4.1); Glucose 92 mg/dL (80-110); HDL Cholesterol 52 mg/dL (40-60); HEMOLYSIS < 15 (0-50); LDL Cholesterol Calculated 64 mg/dL (<100); Potassium 3.9 mmol/L (3.4-5.1); Sodium 138 mmol/L (137-145); Total Protein 7.5 g/dL (6.3-8.2); Triglycerides 81 mg/dL (35-150)
[2022-03-21 16:46] LABS: TSH w/ Reflex to FT4 2.26 uIU/mL (0.47-4.68)
== END ==
PROVIDERS: PCP Internal Medicine; Referring Provider Internal Medicine; Visit Provider Internal Medicine
DX: E78.2 Mixed hyperlipidemia (principal); Z79.01 Long term (current) use of anticoagulants; I10 Essential (primary) hypertension; I48.20 Chronic atrial fibrillation, unspecified
CPT/HCPCS: 36415; 80053; 80061; 84443; 85027; 85610

== ENCOUNTER → 2022-06-25 08:59 | Outpatient (CLI) | payer MEDICARE, SELFPAY ==
[2021-02-06 22:15] VITALS: BMI 29.0
--- NOTE | 2022-06-25 | DI.ECHO.S_ITS ---
[facility]+ : : [address] : : : : [id number] : : : : Phone: [phone]+ Echocardiogram Report + + :Name: JAMES WHITTEN Study Date: 06/25/2022 Height: 66 in : :[facility] ReadingLocation: Weight: 150 lb : : Gender: Female BSA: 1.8 m2 : :: 1945 Age: 76 yrs BP: 110/78 mmHg: :Reason For Study: CARDIOMYOPATHY : :Ordering Physician: GLENROY, : :COOPER Performed By: Marianne Caceres : :Referring: COOPER TOVAR : + + Interpretation Summary 1) Normal left ventricular size with moderately reduced systolic function (EF 35-40%). 2) Mildly increased right ventricular size with mildly reduced function. 3) There is severe biatrial enlargement. 4) There is borderline mitral valve prolapse of the anterior leaflet. There is mild mitral regurgitation. 5) There is mild aortic regurgitation. 6) Compared to the echo done 05/29/2020, LVEF has dropped from 45-50% to 35-40% on this study. Procedure: A two-dimensional transthoracic echocardiogram with color flow and Doppler was performed. The study quality was technically adequate. Comparison is made with the echocardiogram of . The patient was in atrial fibrillation with heart rates between 75-115 bpm during the exam. Left Ventricle: The left ventricle is normal in size and wall thickness. The ejection fraction is estimated to be 35-40%. There is moderate global hypokinesis of the left ventricle. Diastolic function could not be accurately assessed due to atrial fibrillation. Right Ventricle: The right ventricle is mildly dilated. Right ventricular systolic function is mildly reduced. Atria: There is severe biatrial enlargement. There is no Doppler evidence for an interatrial shunt. Mitral Valve: There is borderline mitral valve prolapse. There is prolapse of the anterior mitral valve leaflet. There is mild mitral regurgitation. Aortic Valve: The aortic valve is trileaflet. The aortic valve opens well. There is no aortic valve stenosis. There is mild aortic regurgitation. Tricuspid Valve: The tricuspid valve is normal in structure and function. There is mild tricuspid regurgitation. The right ventricular systolic pressure is estimated to be at least 29 mmHg based on an estimated right atrial pressure of 3 mm Hg. Pulmonic Valve: The pulmonic valve is not well seen, but is grossly normal. There is mild pulmonic regurgitation. Great Vessels: The aortic root is normal size. The dimensions of the ascending aorta are normal. The IVC is of normal diameter and collapses greater than 50% with a sniff. This suggests a low right atrial pressure of 3 mm Hg. Pericardium/ Pleura There is no pericardial effusion. There is no pleural effusion. MMode/2D Measurements & Calculations LVIDd: 5.2 cm LVOT diam: 2.1 cm LVIDs: 4.2 cm Ao root diam: 3.7 cm FS: 20.5 % Ao Arch Diam (Prox Trans): 3.0 cm IVSd: 0.82 cm LVPWd: 0.95 cm LV heck. diameter/BSA (cm/m^2): 3.0 LV sys. diameter/BSA (cm/m^2): 2.4 LA A2 area: 38.7 cm2 RA long axis: 7.1 cm LA A4 area: 35.0 cm2 RA area: 27.7 cm2 LA length (vol): 7.9 cm RA vol: 92.3 ml LA vol: 146.1 ml RA : 52.1 ml/m2 LA vol index: 82.5 ml/m2 IVC diam: 1.8 cm RVD1 (basal): 4.0 cm RVD2 (mid): 3.1 cm TAPSE: 1.7 cm Doppler Measurements & Calculations Ao V2 max: 148.4 cm/sec LVOT Max Alberto: 80.2 cm/sec Ao V2 mean: 101.8 cm/sec LV V1 max P.6 mmHg Ao max P.8 mmHg LV V1 VTI: 15.3 cm Ao mean P.7 mmHg ALICIA(I,D): 2.0 cm2 Ao V2 VTI: 28.3 cm ALICIA(V,D): 2.0 cm2 sev ratio: 0.54 ALICIA indexed to BSA (cm^2/m^2): 1.1 AI P1/2t: 850.0 msec AI dec slope: 159.2 cm/sec2 MV E max alberto: 71.4 cm/sec TR max alberto: 253.2 cm/sec MV A max alberto: 2.0 cm/sec TR max P.7 mmHg MV E/A: 35.6 PA V2 max: 85.2 cm/sec Med Peak E' Alberto: 6.2 cm/sec PA V2 mean: 63.5 cm/sec E/E' med: 11.6 PA mean P.8 mmHg Lat Peak E' Alberto: 14.6 cm/sec E/E' lat: 4.9 E/e' average: 8.2 MV dec time: 0.18 sec SV(LVOT): 55.4 ml Reading Physician:12:05 PM
[2022-06-25 10:46] LABS: Add Manual Diff / Slide Review NO; Basophils Absolute Auto 0 /uL (0-100); Basophils Percent Auto 0.6 % (0-2); Eosinophils Absolute Auto 300 /uL (0-450); Eosinophils Percent Auto 4.4 % (2-4); Hematocrit 28.2 % (36-46); Lymphocytes Absolute Auto 1400 /uL (1100-4500); Lymphocytes Percent Auto 22.1 % (25-40); Mean Corpuscular Hemoglobin 22.4 PG (26-34); Monocytes Absolute Auto 500 /uL (0-900); Monocytes Percent Auto 7.8 % (3-14); Neutrophils Absolute Auto 4200 /uL (1500-7000); Neutrophils Percent Auto 65.1 % (50-75); Platelet Count 263 X10^3/uL (150-400); Red Blood Cell Count 4.04 X10^6/uL (4.0-5.2); Red Cell Distribution Width 17.6 % (11.6-14.8); White Blood Cell Count 6.4 X10^3/uL (4.5-11.0)
[2022-06-25 11:06] LABS: BUN Creatinine Ratio 19.7 (6-22); Blood Urea Nitrogen 14 mg/dL (7-17); Calcium 9.6 mg/dL (8.4-10.2); Carbon Dioxide 26 mmol/L (22-32); Chloride 107 mmol/L (98-107); Cholesterol 108 mg/dL (140-199); Estimated Glomerular Filt Rate > 60 mL/min (>60); Glucose 91 mg/dL (80-110); HDL Cholesterol 42 mg/dL (40-60); HEMOLYSIS < 15 (0-50); LDL Cholesterol Calculated 49 mg/dL (<100); Potassium 4.2 mmol/L (3.4-5.1); Sodium 137 mmol/L (137-145); Triglycerides 84 mg/dL (35-150)
== END ==
PROVIDERS: PCP Internal Medicine; Referring Provider Internal Medicine Cardiovascular Disease; Visit Provider Internal Medicine Cardiovascular Disease
DX: E78.5 Hyperlipidemia, unspecified (principal); I42.9 Cardiomyopathy, unspecified; I08.3 Combined rheumatic disorders of mitral, aortic and tricuspid valves; I10 Essential (primary) hypertension
CPT/HCPCS: 36415; 80048; 80061; 85025; 93306

== ENCOUNTER → 2022-06-26 14:58 | Outpatient (CLI) | payer MEDICARE, SELFPAY ==
[2021-02-06 22:15] VITALS: BMI 29.0
[2022-06-26 15:54] LABS: Reticulocyte Count, Percent 1.9 % (1.1-2.6)
[2022-06-26 18:29] LABS: HEMOLYSIS < 15 (0-50); Iron 15 ug/dL (37-170)
[2022-06-26 18:43] LABS: Percent Iron Saturation 4 % (15-50); Total Iron Binding Capacity 388 ug/dL (265-497); Transferrin 328 mg/dL (206-381)
[2022-06-26 19:06] LABS: Ferritin 6 ng/mL (11-264)
[2022-06-26 19:20] LABS: Vitamin B12 446 pg/mL (239-931)
== END ==
PROVIDERS: PCP Internal Medicine; Referring Provider Internal Medicine; Visit Provider Internal Medicine
DX: D50.9 Iron deficiency anemia, unspecified (principal); E53.8 Deficiency of other specified B group vitamins
CPT/HCPCS: 36415; 82607; 82728; 83540; 83550; 85045

== ENCOUNTER → 2022-06-30 13:26 | Outpatient (CLI) | payer MEDICARE, SELFPAY ==
[2021-02-06 22:15] VITALS: BMI 29.0
[2022-06-30 13:46] LABS: Occult Blood 1 Positive (Negative); Occult Blood 2 Positive (Negative); Occult Blood 3 Positive (Negative)
== END ==
PROVIDERS: PCP Internal Medicine; Referring Provider Internal Medicine; Visit Provider Internal Medicine
DX: D50.9 Iron deficiency anemia, unspecified (principal)
CPT/HCPCS: 82270

== ENCOUNTER 2022-07-08 13:12 | Day surgery (SDC) | payer MEDICARE, SELFPAY ==
[2021-02-06 22:15] VITALS: BMI 29.0
[2022-07-08] VITALS (7 sets, daily range): BP systolic 80–123; BP diastolic 51–79; PULSE 77–124; RESP 12–18; TEMP 36.4–36.9; O2SAT 94–117; BMI 26.9
--- NOTE | 2022-07-08 | PATH_ITS ---
[facility] Accession Number: [id number] No. of containers..02 Tissue . 01 Material submitted: . PART A: stomach - STOMACH BIOPSY PART B: rectum - RECTAL MASS . 01 Diagnosis: A. Stomach, Biopsy: Gastric body mucosa with mild chronic inflammation. Negative for Helicobacter organisms by immunohistochemistry. Negative for intestinal metaplasia. Negative for dysplasia or malignancy. . B. Rectal Mass, Biopsy: Invasive adenocarcinoma, moderately differentiated. Intact DNA mismatch repair proteins by immunohistochemistry. Lymphovascular invasion not identified. . IMMUNOHISTOCHEMISTRY TESTING FOR MISMATCH REPAIR PROTEINS: . MLH1: Intact nuclear expression. MSH2: Intact nuclear expression. MSH6: Intact nuclear expression. PMS2: Intact nuclear expression. Background nonneoplastic tissue/internal control with intact nuclear expression. . INTERPRETATION: No loss of nuclear expression of MMR proteins: low probability of microsatellite instability-high (MSI-H)* . * There are exceptions to the above IHC interpretations. These results should not be considered in isolation, and clinical correlation with genetic counseling is recommended to assess the need for germline testing. MRV 07/15/2022 1513 Local . 01 Comment: As part of routine corporate quality manager, Dr. Castillo has reviewed part B of this case and agrees with the diagnosis of invasive adenocarcinoma. The finding of invasive adenocarcinoma was reported to Dr. Sosa via RN Jessica by Dr. Cottrell on 07/15/2022. . 01 Electronically signed: . Howard Cottrell MD, PhD, Pathologist NPI- [id number] . 01 Gross description: . A. Received in formalin labeled with the patient's name, and stomach biopsy, and consists of a single irregular degroot soft tissue fragment measuring 0.3 cm in greatest dimension. Submitted entirely in cassette A1. B. Received in formalin labeled with the patient's name, and rectal mass, and consists of multiple irregular degroot soft tissue fragments ranging from 0.3 to 1.4 cm with the largest fragment inked and bisected. The specimen is submitted entirely in cassettes B1-B2. ([id number]) /MRV 07/09/2022 1440 Local . 01 Microscopic: . A. An immunohistochemical stain was performed to evaluate for Helicobacter organisms and is negative. The control stain showed appropriate reactivity. . * This test was developed and its performance characteristics determined by [facility]. It has not been cleared or approved by the U.S. Food and Drug Administration. The FDA has determined that such clearance or approval is not necessary. This test is used for clinical purposes. It should not be regarded as investigational or for research. . 01 Pathologist provided ICD-10: K29.70, C20 . 01 CPT . 007001, 264545, U04706, X24012 Specimen Comment: A courtesy copy of this report has been sent to [phone] Performed at: 01 [facility] [address] [place] [address], [place], [place] [id number] MD Ming So MD Phone: [phone]
[2022-07-08] MEDS: LACTATED RINGERS 1,000 ML 200 ML IV (13:52)
--- NOTE | 2022-07-08 15:53 | P.HP_ITS ---
History of Present Illness History of Present Illness Date Patient Seen: 07/08/22 Time Patient Seen: 15:53 Chief complaint: DX Colonoscopy Narrative: 77-year-old woman with anemia here for diagnostic esophagoduodenoscopy and colonoscopy. She has atrial fibrillation was previously on warfarin up until the last 1 month. She was found to have microcytic anemia, hematocrit 28 from baseline of 38 and Hemoccult-positive. No history of peptic ulcer disease. Remote history of colon colectomy with colostomy subsequently reversal presumably for benign disease but unclear secondary to dementia. Patient History Medical History (Updated 06/30/22 @ 14:41 by Maninder Stout MD) Chicken pox Chronic anticoagulation Chronic atrial fibrillation Dementia Diarrhea Do not resuscitate Essential hypertension GI bleed Hyperlipidemia Hypertension Iron deficiency anemia Measles Migraines Mild cognitive disorder Mixed hyperlipidemia Osteopenia Wears glasses Surgical History Anesthesia History of colonoscopy History of hysterectomy History of partial colectomy Status post colostomy takedown Family & Social History Family History Mother Stroke History of heart disease Hypertension Hyperlipidemia Father Parkinson's disease (tremor, stiffness, slow motion, unstable posture) History of heart disease Hypertension Hyperlipidemia Grandfather History of heart disease Grandfather Cancer Social History: household members spouse Tobacco & Substance use: Smoking Status Never smoker alcohol intake former alcohol intake frequency 0-2 drinks per day Substance Use Type does not use Meds Home Medications and Allergies Home Medications Medication Instructions Recorded Confirmed Type rosuvastatin 5 mg tablet 5 mg PO DAILY 02/06/21 07/08/22 History warfarin 5 mg tablet See Rx Instructions PO .COMPLEX 12/03/21 07/08/22 History cholecalciferol (vitamin D3) 50 50 mcg PO DAILY 12/16/21 07/08/22 History mcg (2,000 unit) capsule losartan 50 mg tablet 50 mg PO DAILY 12/16/21 07/08/22 History magnesium 250 mg tablet 250 mg PO DAILY 12/16/21 07/08/22 History metoprolol succinate 100 mg 100 mg PO BID 12/16/21 07/08/22 History tablet,extended release 24 hr donepezil 10 mg tablet 10 mg PO BEDTIME #90 tabs 03/21/22 07/08/22 Rx ferrous sulfate 325 mg (65 mg 325 mg PO DAILY 06/30/22 07/08/22 History iron) tablet sodium,potassium,mag sulfates 17.5 See Rx Instructions PO .COMPLEX 07/01/22 0 07/08/22 Rx gram-3.13 gram-1.6 gram oral soln #354 mL (Suprep Bowel Prep Kit) Allergies Allergy/AdvReac Type Severity Reaction Status Date / Time No Known Drug Allergies Allergy Verified 06/30/22 13:34 Exam Vital Signs (past 8 hours): - 07/08/22 14:02 Temperature 98.4 F Pulse Rate 87 Respiratory Rate 18 Blood Pressure 123/79 Pulse Oximetry 100 Oxygen Delivery Method Room Air Oxygen Delivery Method Room Air Narrative Exam Narrative: General elderly woman alert no acute distress Abdomen soft nontender nondistended Assessment & Plan Assessment and plan (1) Iron deficiency anemia: Qualifiers: Iron deficiency anemia type: unspecified iron deficiency Qualified Code(s): D50.9 - Iron deficiency anemia, unspecified Status: Acute Assessment & Plan narrative: 77-year-old woman with microcytic anemia here for diagnostic esophagoduodenoscopy and colonoscopy. Technical details were discussed. Risks, benefits, alternatives explained. Risks including but not limited to myocardial infarction, aspiration, bleeding, pain, missed lesion, incomplete examination, need for further radiographic studies, colonic perforation, and need for major abdominal surgery were discussed. Her questions have been answered I spoke with her as well given her history of dementia who gives his permission to proceed. Time Spent With Patient Critical Care time: I spent a total of [] minutes of critical care time on this patient's care today; this time is exclusive of procedural time.
--- NOTE | 2022-07-08 16:29 | PM.OP.EC ---
Operative Date/Time/Diagnoses Date of procedure: 07/08/22 Time of procedure: 16:29 Pre-op diagnosis: Anemia Post-op diagnosis: same Procedure & Clinicians Study performed: Esophagoduodenoscopy and colonoscopy Same procedure as scheduled: Yes Indications: Microcytic anemia Surgeon: Philipp Sosa Procedure Notes Procedure in detail: The history and physical was performed/updated and the patient is ASA class is 2. The procedure was discussed in detail with the patient. Potential risks complications including infection, bleeding, missed diagnosis, perforation, need for surgery, and were explained. Their questions were answered and informed consent was obtained. Patient placed in left lateral decubitus position. Time out was performed. Sedation was administered by anesthesia l. A bite block was placed. the scope was inserted into the mouth and advanced through the esophagus and into the stomach. Stomach had small flecks of clot but no active ulcer or hemorrhage. There was mild gastritis and biopsies were taken with forceps.The scope was retroflexed within the stomach and there was a small hiatal hernia. The scope was withdrawn into the esophagus the Z line was seen at 35 cm from the incisions. There was no Bernardo's esophagitis or masses or strictures. Stomach was desufflated and scope removed. Patient tolerated procedure well. Examination began with a thorough inspection of the perianal area there was no evidence of fissures, fistulae, external hemorrhoids or cutaneous malignancy. The colonoscopy scope was then placed into the anal canal and was advanced forward. In the rectum at approximately 8 cm from the anal verge palpable with my index finger there was a large friable rectal mass. Biopsies were taken with hot snare. Examination beyond approximately 20 cm was difficult given the poor quality of the preparation. The procedure was aborted and the scope was withdrawn. The patient tolerated the procedure well. They will be discharged once criteria are met. The withdrawal time was not applicable given the aborted procedure Specimen(s): other (Gastric biopsy, rectal mass) Complications: none Impression: Rectal mass concern for rectal adenocarcinoma Post-procedure Plan for aftercare: Will notify with biopsy Disposition: same day surgery
[2022-07-08 17:27] LABS: Appearance Urine UA CLEAR; Bilirubin Urine UA 1+ (NEGATIVE); Color Urine UA YELLOW; Glucose Urine UA NEGATIVE (Negative); Ketones Urine UA 1+ (NEGATIVE); Leukocyte Esterase Urine UA NEGATIVE (NEGATIVE); Nitrite Urine UA NEGATIVE (Negative); Occult Blood Urine UA 1+ (Negative); Protein Urine UA 1+ (Negative); Specific Gravity Urine UA >=1.030 (1.000-1.035); Urobilinogen Urine UA 0.2 E.U./dL (0.2)
[2022-07-08 17:29] LABS: pH Urine UA 5.5 (4.5-8.0)
[2022-07-08 17:32] LABS: Ictotest Urine Negative (Negative)
[2022-07-08 17:38] LABS: Bacteria Urine None Seen; Hyaline Casts Urine 1-5/LPF; Mucus Urine 1+ (Negative); RBC Urine 0-1/HPF (0-5/HPF); WBC Urine 0-1/HPF (0-5/HPF)
[2022-07-08 17:39] LABS: Culture Indicated Urine Cult Not Indicated
== END 2022-07-08 17:29 | disposition home or self-care (01) ==
PROVIDERS: PCP Internal Medicine; Referring Provider Surgery; Visit Provider Surgery
PROC: 0DJ08ZZ Inspection of Upper Intestinal Tract, Via Natural or Artificial Opening Endoscopic (ICD-10-PCS; CPT 43235; principal; 2022-07-08 14:30)
PROC: 0DJD8ZZ Inspection of Lower Intestinal Tract, Via Natural or Artificial Opening Endoscopic (ICD-10-PCS; CPT 45378; 2022-07-08 14:30)
DX: D50.9 Iron deficiency anemia, unspecified (principal); K44.9 Diaphragmatic hernia without obstruction or gangrene; K29.50 Unspecified chronic gastritis without bleeding; C20 Malignant neoplasm of rectum
CPT/HCPCS: 43239; 45385; 81001; 85610; J2704

== ENCOUNTER → 2022-07-16 17:05 | Outpatient (CLI) | payer MEDICARE, SELFPAY ==
[2022-07-10 15:09] VITALS: BMI 29.0
[2022-07-16 17:59] LABS: Hematocrit 32.4 % (36-46); Hemoglobin 10.2 g/dL (12.0-16.0); Mean Corpuscular HGB Conc 31.4 % (30-36); Mean Corpuscular Hemoglobin 23.1 PG (26-34); Mean Corpuscular Volume 73.5 fL (80-100); Platelet Count 265 X10^3/uL (150-400); Red Blood Cell Count 4.41 X10^6/uL (4.0-5.2); Red Cell Distribution Width 23.2 % (11.6-14.8); White Blood Cell Count 7.8 X10^3/uL (4.5-11.0)
[2022-07-16 18:21] LABS: HEMOLYSIS < 15 (0-50); Iron 110 ug/dL (37-170)
[2022-07-16 18:24] LABS: Alanine Aminotransferase 17 IU/L (<35); Albumin 3.9 g/dL (3.5-5.0); Albumin Globulin Ratio 1.3 (1.0-2.8); Alkaline Phosphatase 64 U/L (38-126); Aspartate Aminotransferase 22 IU/L (14-36); BUN Creatinine Ratio 15.4 (6-22); Bilirubin Total 0.9 mg/dL (0.2-1.3); Blood Urea Nitrogen 12 mg/dL (7-17); Calcium 9.8 mg/dL (8.4-10.2); Carbon Dioxide 25 mmol/L (22-32); Chloride 104 mmol/L (98-107); Estimated Glomerular Filt Rate > 60 mL/min (>60); Glucose 102 mg/dL (80-110); HEMOLYSIS < 15 (0-50); Potassium 3.9 mmol/L (3.4-5.1); Sodium 138 mmol/L (137-145); Total Protein 6.9 g/dL (6.3-8.2)
[2022-07-16 18:33] LABS: Percent Iron Saturation 22 % (15-50); Total Iron Binding Capacity 490 ug/dL (265-497); Transferrin 331 mg/dL (206-381)
[2022-07-16 18:58] LABS: Carcinoembryonic Antigen 23.3 ng/mL (0.1-3.0)
[2022-07-16 19:02] LABS: Ferritin 14 ng/mL (11-264)
== END ==
PROVIDERS: PCP Internal Medicine; Referring Provider Internal Medicine; Visit Provider Internal Medicine
DX: C20 Malignant neoplasm of rectum (principal); D50.9 Iron deficiency anemia, unspecified; K92.2 Gastrointestinal hemorrhage, unspecified
CPT/HCPCS: 36415; 80053; 82378; 82728; 83540; 83550; 85027

== ENCOUNTER → 2022-07-18 10:50 | Outpatient (CLI) | payer MEDICARE, SELFPAY ==
[2022-07-10 15:09] VITALS: BMI 29.0
--- NOTE | 2022-07-18 10:51 | DI.CT.S_ITS ---
PROCEDURE: CT CHEST ABD PEL W CON INDICATIONS: rectal adenocarcinoma TECHNIQUE: After the administration of oral and intravenous contrast, axial sections acquired from the supraclavicular neck to the pubic symphysis. Coronal and sagittal reformats were performed. For radiation dose reduction, the following was used: automated exposure control, adjustment of mA and/or kV according to patient size. COMPARISON: [facility], CT, CT ABDOMEN PELVIS W CON, 02/06/2021, 19:13. FINDINGS: Image quality: Excellent. CHEST: Lower Neck: No visible adenopathy. Thyroid: Normal size. Axillae: No adenopathy. Chest Wall: No suspicious chest wall mass. Lungs and Airways: 5 mm rounded solid subpleural nodule superior segment right lower lobe, 4/122 was not present previously. A 4 mm perihilar nodule also in the right lower lobe, 4/134, also appears new. Anterolateral right upper lobe nodule measures 4 mm, 4/97, and a few other smaller nodules are seen in the right middle lobe. No left lung nodules. No ground-glass opacities. Pleura: No pneumothorax or pleural effusions. Heart: The heart is enlarged, particularly the atria. No pericardial effusion. Thoracic Vessels: The aorta and pulmonary arteries demonstrate normal size. Mediastinum and Shelley: No enlarged lymph nodes. Esophagus: No wall thickening. No hiatal hernia. ABDOMEN: Liver: No visible masses. Gallbladder: Decompressed, surrounding several tiny hyperdense stones near the fundus. Biliary ducts: Nondilated. Pancreas: Normal. Spleen: Normal. Splenule in the inferior hilum region. Adrenal Glands: No nodules. Kidneys and Ureters: Symmetric enhancement. No nephrolithiasis or hydronephrosis. No hydroureter. Stomach and Bowel: There is a polypoid/semi circumferential mass involving the right aspect of the rectum from the 6 to 12 o'clock position seen best axial series 3, image 99. This is about 4.7 cm in craniocaudal dimension (6/48). This is estimated to begin about 7 cm from the anal verge. Probable nodular extramural extension for distance of about 2 cm at the 9 o'clock position seen on series 3, image 102 and likely comes within 8 mm of the mesorectal fascia on the right. Posterior perirectal fat stranding and edema. The lesion is nonobstructive. There is prominent stool in the visible colon. There has been a prior partial colectomy. Small bowel loops are normal. Peritoneum: No abnormal intraperitoneal fluid. No free air. Ventral Wall: No hernia. Abdominal Nodes: No retroperitoneal or mesenteric adenopathy by size criteria. Vessels: Aorta and inferior vena cava are normal in size. PELVIS: Pelvic Organs: The uterus is not well seen, probably diminutive. No suspicious adnexal masses. Bladder: Unremarkable. Pelvic Nodes: Single borderline posterior midline presacral lymph node is indeterminate measuring 6 mm (3/92). No other bulky adenopathy. Miscellaneous: No inguinal hernias are seen. Bones: Multilevel disc and endplate degeneration throughout the spine. Grade 1 anterolisthesis L4 on five with severe facet arthropathy posteriorly. No suspicious bone lesions. IMPRESSION: 1. Known rectal adenocarcinoma. This is likely a T3 lesion. Confirmation of staging with rectal MRI is recommended. 2. New rounded 5 mm right lower lobe pulmonary nodule and 4 mm right perihilar pulmonary nodules are indeterminate, yet in the setting of malignancy, suspicious for metastatic disease. 3. Single borderline pelvic lymph node identified. 4. Cholelithiasis. Dictated by: Shani Henao M.D. on 07/18/2022 at 15:28 Approved by: Shani Henao M.D. on 07/18/2022 at 15:56
== END ==
PROVIDERS: PCP Internal Medicine; Referring Provider Internal Medicine; Visit Provider Internal Medicine
DX: C20 Malignant neoplasm of rectum (principal); R91.8 Other nonspecific abnormal finding of lung field; K80.20 Calculus of gallbladder without cholecystitis without obstruction
CPT/HCPCS: 71260; 74177; Q9967

== ENCOUNTER → 2022-07-30 | Outpatient (CLI) | payer MEDICARE, SELFPAY ==
[2022-07-10 15:09] VITALS: BMI 29.0
--- NOTE | 2022-07-30 09:17 | DI.NM.S_ITS ---
PROCEDURE: NM PET CT FUSION SKULL 2 THIGH RADIOPHARMACEUTICAL: 11.57 mCi F-18 fluorodeoxyglucose IV. INDICATIONS: rectal cancer staging TECHNIQUE: After intravenous administration of F-18 fluoro-deoxyglucose (FDG), noncontrast CT images were obtained for attenuation correction and anatomic localization. A series of overlapping emission PET images was then obtained. The patient's pretest fasting blood glucose level as measured by glucometer was 104 mg/dl. The area imaged spanned from the skull base, vertex to the upper thighs. COMPARISON: [facility], CT, CT CHEST ABD PEL W CON, 07/18/2022, 12:41. [facility], CT, CT ABDOMEN PELVIS W CON, 02/06/2021, 19:13. FINDINGS: Head and neck: No soft tissue masses in the neck. No enlarged cervical or supraclavicular lymph nodes; no abnormal kim tracer uptake. Salivary and thyroid glands appear normal. Sinuses and mastoids are clear. Thorax: No enlarged mediastinal, hilar, or axillary lymph nodes. No abnormal kim tracer uptake. No acute pulmonary opacities. Previously identified scattered subcentimeter right pulmonary nodules the largest measuring 5 mm in the right lower lobe on series 4 image 83 are unchanged. No discernible hypermetabolic activity. No pleural effusions or pneumothorax. Heart size is enlarged. No pericardial effusion. Abdomen and pelvis: No enlarged retroperitoneal or mesenteric lymph nodes. No abnormal kim tracer uptake. There is normal heterogeneous hepatic tracer uptake. Liver is normal in size, without focal masses. The spleen is normal in size. Gallbladder is contracted with hyperdensity appearance in the lumen, unchanged. . Pancreas is normal in morphology. No adrenal nodules. Kidneys are normal in size, without hydronephrosis or nephrolithiasis. Small and large intestines are nonobstructive. Thickened irregular appearance at the rectum is noted consistent with known site of rectal malignancy. It is hypermetabolic with SUV maximum measuring 10.9. Aorta and inferior vena cava are normal in size. No free fluid or air. No pelvic or inguinal adenopathy. Bladder wall thickness is normal. Bones: No abnormal osseous tracer uptake. No lytic or blastic bony lesions. IMPRESSION: Rectal mass lesion without obstruction consistent with known malignancy. SUV maximum measures 10.9. No visualized regional adenopathy by size criteria or hypermetabolic activity within lymph nodes. Subcentimeter pulmonary nodules as above without visualized increased metabolic activity. Secondary to small size, metabolic activity may not be visualized and continued interval follow-up is recommended to document stability. Dictated by: Jessica Lima M.D. on 07/30/2022 at 15:59 Approved by: Jessica Lima M.D. on 07/30/2022 at 16:05
== END ==
LOC: DI 09:16
PROVIDERS: PCP Internal Medicine; Referring Provider Internal Medicine Medical Oncology; Visit Provider Internal Medicine Medical Oncology
DX: Z01.89 Encounter for other specified special examinations (principal)

== ENCOUNTER 2022-09-05 13:51 | Day surgery (SDC) | payer MEDICARE, SELFPAY ==
[2022-07-10 15:09] VITALS: BMI 29.0
[2022-09-05] VITALS (7 sets, daily range): BP systolic 111–126; BP diastolic 74–93; PULSE 66–88; RESP 13–20; TEMP 36.3–37; O2SAT 95–99; BMI 27.1
--- NOTE | 2022-09-05 | DI.RAD.S_ITS ---
PROCEDURE: XR CHEST 1V INDICATIONS: PORT A CATH PLACEMENT POST-OP TECHNIQUE: One view of the chest was acquired. COMPARISON: [facility], , CHEST 1 VIEW, 10/27/2016, 9:56. FINDINGS: Surgical changes and devices: Right chest wall port. Lungs and pleura: Lungs are clear. No pleural effusions or pneumothorax. Mediastinum: Mediastinal contours appear normal. Heart size is enlarged. Bones and chest wall: No suspicious bony lesions. Overlying soft tissues appear unremarkable. Remote left-sided rib fractures. IMPRESSION: 1. Stable cardiomegaly. 2. Interval placement of a right chest wall port with good positioning of the tip. Dictated by: Asael Rudd M.D. on 09/05/2022 at 17:43 Approved by: Asael Rudd M.D. on 09/05/2022 at 17:44
[2022-09-05] MEDS: LACTATED RINGERS 1,000 ML 100 ML IV (14:29)
--- NOTE | 2022-09-05 15:46 | PM.HP.1 ---
History of Present Illness History of Present Illness Date Patient Seen: 09/05/22 Time Patient Seen: 15:46 Chief complaint: Port-A-Cath Insertion Narrative: 77-year-old woman with rectal cancer here for Port-A-Cath placement. She feeling well today without complaint. No previous indwelling central catheter. [facility] Medical History Chicken pox Chronic anticoagulation Chronic atrial fibrillation Dementia Diarrhea Do not resuscitate Essential hypertension GERD without esophagitis GI bleed Hyperlipidemia Hypertension Iron deficiency anemia Measles Migraines Mild cognitive disorder Mixed hyperlipidemia Osteopenia Rectal adenocarcinoma Wears glasses Surgical History Anesthesia History of colonoscopy History of hysterectomy History of partial colectomy Status post colostomy takedown Family History Mother Stroke History of heart disease Hypertension Hyperlipidemia Father Parkinson's disease (tremor, stiffness, slow motion, unstable posture) History of heart disease Hypertension Hyperlipidemia Grandfather History of heart disease Grandfather Cancer Social History marital status: details: (Berto), no children household members: spouse Smoking Status: Never smoker alcohol intake: former Meds Home Medications and Allergies Home Medications Medication Instructions Recorded Confirmed Type rosuvastatin 5 mg tablet 5 mg PO DAILY 02/06/21 08/12/22 History cholecalciferol (vitamin D3) 50 50 mcg PO DAILY 12/16/21 09/05/22 History mcg (2,000 unit) capsule magnesium 250 mg tablet 250 mg PO DAILY 12/16/21 09/05/22 History metoprolol succinate 100 mg 100 mg PO DAILY 12/16/21 08/12/22 History tablet,extended release 24 hr donepezil 10 mg tablet 10 mg PO BEDTIME #90 tabs 03/21/22 09/05/22 Rx ferrous sulfate 325 mg (65 mg 325 mg PO DAILY 06/30/22 09/05/22 History iron) tablet losartan 25 mg tablet 25 mg PO DAILY 07/16/22 09/05/22 History fluorouracil 2.5 gram/50 mL 4,200 mg (84 mL) IV NOW 08/26/22 Rx intravenous solution CHEMOTHERAPY #1 device fluorouracil 2.5 gram/50 mL 4,200 mg (84 mL) IV NOW 08/26/22 Rx intravenous solution CHEMOTHERAPY #1 device Allergies Allergy/AdvReac Type Severity Reaction Status Date / Time No Known Drug Allergies Allergy Verified 07/16/22 16:01 Exam Vital Signs (past 8 hours): - 09/05/22 14:04 Temperature 98.6 F Pulse Rate 70 Respiratory Rate 16 Blood Pressure 122/93 H Pulse Oximetry 98 Oxygen Delivery Method Room Air Oxygen Delivery Method Room Air Narrative Exam Narrative: General adult woman alert oriented no acute distress Chest nonlabored respiration Abdomen soft nontender nondistended Assessment & Plan Assessment and plan (1) Rectal adenocarcinoma: Status: Acute Assessment & Plan narrative: 77-year-old woman with rectal cancer here for a Port-A-Cath placement. Overview of the operation was discussed with the patient and her at the bedside. Operative risks including hemorrhage, infection, mechanical device failure, pneumothorax, embolism were discussed. Questions have been answered she provides her written and verbal consent to proceed.
[2022-09-05] MEDS: CEFAZOLIN 2 GM/100 ML PREMIX 100 ML IV (16:00)
[2022-09-05] MEDS: BUPIVACAINE 0.25% (PF) VIAL 30 ML INJ (16:16)
[2022-09-05] MEDS: HEPARIN 5,000 UNIT, SODIUM CHLORIDE 0.9% 50 ML IV (16:17)
--- NOTE | 2022-09-05 16:27 | SUR.OPER ---
Supine on padded OR bed, head on pillow, arms padded and tucked at sides, legs uncrossed, safety belt at thigh, tape over blanket over lower legs .
--- NOTE | 2022-09-05 16:49 | PM.OP.1 ---
Operative Date/Time/Diagnoses Date of procedure: 09/05/22 Time of procedure: 16:49 Pre-op diagnosis: Rectal Cancer Post-op diagnosis: same Procedure & Clinicians Procedure: Port-A-Cath placement with ultrasound guidance Same procedure as scheduled: Yes Indications: Rectal cancer Surgeon: Philipp Sosa Click Yes if Unassisted: Yes Anesthesia Type: General Operative Notes Findings: Tip of the catheter within the SVC Specimen(s): none sent Estimated Blood Loss (mL): 10 Procedure in detail: Patient was brought to the operating room placed supine on table. Bilateral lower extremity compressive devices were applied. General anesthesia was induced and he was intubated with an LMA. He was then prepped and draped in usual sterile fashion. Time-out was performed ensure the correct patient procedure necessary equipment within the operating room. He received 2 g of Ancef prior to incision. Under ultrasound guidance the right internal jugular vein was accessed under direct visualization. The guidewire was then threaded through the needle. Its placement was then confirmed using fluoroscopy. The dilator was then placed over the guidewire. The catheter was then inserted through the sheath. Placement was again confirmed with fluoroscopy. A subcutaneous pocket was made in the right chest wall. The tunneler device was used to move the catheter from the neck to the chest pocket. The port was attached after it was primed with heparined saline. The port was tested to ensure that it flushed easily and had good blood return. The port was then secured to the underlying fascia using interupted 0 Prolene suture. Hemostasis was achieved. The wound was irrigated with sterile saline. The subcutaneous tissues were reapproximated with the 3 0 Vicryl and then skin closed with 4-0 Monocryl. The skin was sealed with Dermabond. Patient tolerated procedure well. The sponge and instrument count at the end operation was correct. Patient emerged from general anesthesia was extubated and taken to the postoperative care unit in stable condition Complications: none Post-operative Condition: stable Disposition: same day surgery
== END 2022-09-05 17:28 | disposition home or self-care (01) ==
PROVIDERS: PCP Internal Medicine; Referring Provider Surgery; Visit Provider Surgery
PROC: (CPT 36561; principal; 2022-09-05 15:30)
DX: C20 Malignant neoplasm of rectum (principal)
CPT/HCPCS: 36561; 71045; C1788; J0690; J1100; J1644; J2405; J2704

== ENCOUNTER 2022-12-06 11:46 | Inpatient (IN) | payer MEDICARE, SELFPAY ==
[2022-07-10 15:09] VITALS: BMI 29.0
[2022-12-06] VITALS (16 sets, daily range): BP systolic 109–127; BP diastolic 63–86; PULSE 59–87; RESP 18–19; TEMP 35.6–36.2; O2SAT 95–100; BMI 23.5; BMI 25.2
--- NOTE | 2022-12-06 12:04 | DI.RAD.S_ITS ---
PROCEDURE: XR KNEE RT 1TO2V INDICATIONS: injury TECHNIQUE: 2 views of the knee were acquired. COMPARISON: [facility], , XR KNEE RT 1TO2V, 09/03/2018, 10:07. FINDINGS: Bones: Transverse fracture of the patella with approximately 3.3 cm of distraction of the fracture fragments. No other fractures identified. Tricompartmental degenerative changes of the right knee. Soft tissues: Small joint effusion. Diffuse soft tissue swelling of the right knee. No suspicious soft tissue calcifications. IMPRESSION: Transverse fracture of the patella with approximately 3.3 cm of distraction of the fracture fragments. No other fractures definitively visualized. Tricompartmental degenerative changes of the right knee. Dictated by: Poli Vidales M.D. on 12/06/2022 at 11:57 Approved by: Poli Vidales M.D. on 12/06/2022 at 11:58
--- NOTE | 2022-12-06 12:05 | DI.RAD.S_ITS ---
PROCEDURE: XR ANKLE RT MIN 3V INDICATIONS: fall TECHNIQUE: 3 views of the ankle were acquired. COMPARISON: None. FINDINGS: Bones: Fractures of the medial malleolus and lateral malleolus with lateral subluxation of the right ankle. Ankle mortise appears to be maintained. No suspicious bony lesions. Very small retrocalcaneal spur. Soft tissues: Small tibiotalar joint effusion. Achilles tendon appears normal. IMPRESSION: Bimalleolar fracture with lateral subluxation of the talus relative to the distal tibia. Overall ankle mortise appears to be maintained. Dictated by: Poli Vidales M.D. on 12/06/2022 at 11:54 Approved by: Poli Vidales M.D. on 12/06/2022 at 11:56
--- NOTE | 2022-12-06 12:05 | DI.RAD.S_ITS ---
PROCEDURE: XR TIBIA FUBULA RT 2V INDICATIONS: fall TECHNIQUE: 2 views of the tibia and fibula were acquired. COMPARISON: None. FINDINGS: Bones: Bimalleolar fracture with lateral subluxation of the talus relative to the distal tibia. Overall ankle mortise appears to be maintained. Partially imaged patellar fracture with distraction of fracture fragments. Soft tissues: No suspicious soft tissue calcifications or masses. IMPRESSION: Patellar fracture with distraction of the fracture fragments. Bimalleolar fracture of the right ankle with lateral displacement of the fracture fragments. Mild lateral subluxation of the talus relative to the distal tibia with overall preservation of the ankle mortise. Dictated by: Poli Vidales M.D. on 12/06/2022 at 12:00 Approved by: Poli Vidales M.D. on 12/06/2022 at 12:01
--- NOTE | 2022-12-06 12:08 | DI.CT.S_ITS ---
PROCEDURE: CT HEAD/BRAIN WO CON INDICATIONS: trauma TECHNIQUE: Noncontrast 4.5 mm thick angled axial sections acquired from the foramen magnum to the vertex, with coronal and sagittal reformats. For radiation dose reduction, the following was used: automated exposure control, adjustment of mA and/or kV according to patient size. COMPARISON: None. FINDINGS: Image quality: Excellent. CSF spaces: Basal cisterns are patent. No extra-axial fluid collections. The ventricles are symmetric in size and shape. Brain: No intracranial bleeds or masses. There is cerebral volume loss for age, with resultant ventricular and sulcal prominence. There are periventricular and deep white matter chronic small vessel ischemic changes. There is intracranial internal carotid artery atherosclerosis. Skull and face: Calvarium and visualized facial bones appear intact, without suspicious lesions. Sinuses: Visualized sinuses and mastoids are clear. IMPRESSION: 1. CT head without acute intracranial abnormalities or acute calvarial fractures. 2. Age-related senescent changes and sequela of chronic small vessel ischemic disease. Dictated by: Poli Vidales M.D. on 12/06/2022 at 12:01 Approved by: Poli Vidales M.D. on 12/06/2022 at 12:02
--- NOTE | 2022-12-06 12:08 | DI.CT.S_ITS ---
PROCEDURE: CT CERVICAL SPINE WO CON INDICATIONS: trauma TECHNIQUE: Noncontrast 3 mm thick sections acquired from the skull base to the T4 level. Sagittal and coronal reformats were then constructed. For radiation dose reduction, the following was used: automated exposure control, adjustment of mA and/or kV according to patient size. COMPARISON: None. FINDINGS: Image quality: Excellent. Bones: No acute fractures or dislocations. No acute compression fractures of the vertebral bodies. Craniocervical junction is intact. C1-C2 relationship is preserved. Visualized superior ribs are intact. Straightening of cervical lordosis which may be due to patient positioning and/or concurrent muscle spasms. Severe multilevel cervical spondylosis. Findings are most pronounced at C5-6 and C6-7. Soft tissues: Prevertebral soft tissues are normal in thickness. No paravertebral hematomas. No apical pneumothoraces. IMPRESSION: Cervical spine without acute fracture or traumatic malalignment. Severe multilevel cervical spondylosis. Dictated by: Poli Vidales M.D. on 12/06/2022 at 12:02 Approved by: Poli Vidales M.D. on 12/06/2022 at 12:05
--- NOTE | 2022-12-06 12:08 | DI.RAD.S_ITS ---
PROCEDURE: XR CHEST 1V INDICATIONS: trauma TECHNIQUE: One view of the chest was acquired. COMPARISON: [facility], CR, XR CHEST 1V, 09/05/2022, 16:55. FINDINGS: Surgical changes and devices: Right tunneled port device is stable in positioning. Lungs and pleura: Lungs are clear. No pleural effusions or pneumothorax. Mediastinum: The cardiomediastinal contours remain stable with enlargement of the cardiac silhouette. Bones and chest wall: No suspicious bony lesions. Overlying soft tissues appear unremarkable. IMPRESSION: Cardiomegaly. No acute cardiopulmonary abnormalities. No evidence for acute rib fracture. Dictated by: Poli Vidales M.D. on 12/06/2022 at 11:58 Approved by: Poli Vidales M.D. on 12/06/2022 at 11:59
[2022-12-06] MEDS: MORPHINE 2 MG/ML INJ IV ×2 (13:22→14:38)
[2022-12-06 13:25] LABS: Add Manual Diff / Slide Review NO; Basophils Absolute Auto 100 /uL (0-100); Basophils Percent Auto 1.4 % (0-2); Eosinophils Absolute Auto 200 /uL (0-450); Eosinophils Percent Auto 3.9 % (2-4); Hematocrit 37.8 % (36-46); Hemoglobin 12.8 g/dL (12.0-16.0); Lymphocytes Absolute Auto 900 /uL (1100-4500); Lymphocytes Percent Auto 20.9 % (25-40); Mean Corpuscular HGB Conc 33.9 % (30-36); Mean Corpuscular Hemoglobin 29.7 PG (26-34); Mean Corpuscular Volume 87.7 fL (80-100); Monocytes Absolute Auto 300 /uL (0-900); Monocytes Percent Auto 6.5 % (3-14); Neutrophils Absolute Auto 2800 /uL (1500-7000); Neutrophils Percent Auto 67.3 % (50-75); Platelet Count 147 X10^3/uL (150-400); Red Blood Cell Count 4.31 X10^6/uL (4.0-5.2); Red Cell Distribution Width 18.9 % (11.6-14.8); White Blood Cell Count 4.2 X10^3/uL (4.5-11.0)
[2022-12-06 13:35] LABS: INR 1.2 (0.9-1.3); Prothrombin Time 13.4 SECONDS (10.1-12.7)
--- NOTE | 2022-12-06 13:54 | ED_ITS ---
HPI - Fall General Chief Complaint: Trauma Stated Complaint: ankle injury Time Seen by Provider: 12/06/22 13:00 Source: patient Mode of arrival: Family Vehicle Limitations: no limitations History of Present Illness HPI Narrative: This is a 77-year-old female with history of atrial fibrillation on Pradaxa, history of colorectal cancer receiving infusions, hypertension dyslipidemia as well as Alzheimer's disease. Patient presents with ground level fall she tripped over a hose at home. She did hit her has a small abrasion on her right brow, no vision changes denies headache neck pain or back pain. No loss of consciousness reported. No chest pain or shortness of breath. No nausea or vomiting, no loss of bowel or bladder control, no issues with bowel movements or urination. She complains of pain particularly in her right ankle and knee. None in her hip. She has pain with any sort of movement. No numbness or tingling. Patient does receive infusions for her colorectal cancer, takes medication for hypertension dyslipidemia and atrial fibrillation. Denies cardiac stents or pacemaker. Patient's last solids was a 30 this morning had orange crush to drink prior to arrival. Her primary care is Dr. Stout. She follows with Dr. Tovar for Cardiology in her oncology in [place]. She is accompanied by her today who she lives with. Patient states that she ambulates without walker or assistance. Related Data Home Medications Medication Instructions Recorded Confirmed rosuvastatin 5 mg tablet 5 mg PO QPM 02/06/21 12/06/22 cholecalciferol (vitamin D3) 50 50 mcg PO QAM 12/16/21 12/06/22 mcg (2,000 unit) capsule magnesium 250 mg tablet 250 mg PO QPM 12/16/21 12/06/22 metoprolol succinate 100 mg 100 mg PO QAM 12/16/21 12/06/22 tablet,extended release 24 hr ferrous sulfate 325 mg (65 mg 325 mg PO QAM 06/30/22 12/06/22 iron) tablet losartan 25 mg tablet 25 mg PO QPM 07/16/22 12/06/22 donepezil 10 mg tablet 10 mg PO QAM 12/06/22 12/06/22 rivaroxaban 10 mg tablet 10 mg PO QPM 12/06/22 12/06/22 Previous Rx's Medication Instructions Recorded acetaminophen 325 mg capsule 650 mg PO QID PRN pain #60 caps 09/05/22 (Tylenol) Allergies Allergy/AdvReac Type Severity Reaction Status Date / Time No Known Drug Allergies Allergy Verified 12/06/22 13:16 Review of Systems Review of Systems ROS Unobtainable: All systems reviewed & are unremarkable except as noted in HPI and below Patient History Medical History Chicken pox Chronic anticoagulation Chronic atrial fibrillation Dementia Diarrhea Do not resuscitate Essential hypertension GERD without esophagitis GI bleed Hyperlipidemia Hypertension Iron deficiency anemia Measles Migraines Mild cognitive disorder Mixed hyperlipidemia Osteopenia Rectal adenocarcinoma Wears glasses Surgical History Anesthesia History of colonoscopy History of hysterectomy History of partial colectomy Status post colostomy takedown Family History Mother Stroke History of heart disease Hypertension Hyperlipidemia Father Parkinson's disease (tremor, stiffness, slow motion, unstable posture) History of heart disease Hypertension Hyperlipidemia Grandfather History of heart disease Grandfather Cancer Social History marital status: details: (Berto), no children household members: spouse Smoking Status: Never smoker alcohol intake: former Smoking Status: Never smoker alcohol intake frequency: 0-2 drinks per day Substance Use Type: does not use Exam Narrative Exam Narrative: GEN: Patient appears in mild distress. HEAD: Patient has a abrasion at right upper brow, mild swelling, no raccoon/Merlos sign. NECK: Nontender, painless range of motion, trachea midline Negative for Nexus criteria, no midline line tenderness, distracting injury, altered mental status, neuro deficit, recent EtOH. EYES: PERRLA, EOMI ENT: External inspection normal, trachea is midline, TM's are normal no hemotypanum, Nares are clear, no septal hematoma, no dental or oral injury, airway is normal and with normal occlusion, No bony tenderness RESP: Chest is nontender and has symmetric movement, no ecchymosis, breath sounds are normal no crackles, wheezes or rales CVS: Heart sounds are normal, no murmur noted, No JVD. ABG/GI: Nontender, soft, normal bowel sounds, no distention, no organomegaly, pelvic rock is negative NEURO: Oriented AOx3, neuro is grossly intact, sensation and motor is normal all 4 extremities moving, cranial nerves II through XII are intact, GCS is 15, patient has baseline dementia but answers questions appropriately overall. PSYCH: Normal mood and affect SKIN: Intact, warm and dry, no crepitus and without decubitus BACK: No CVA tenderness, no vertebral tenderness, no step-off's, no crepitus EXT: Patient has swelling at right ankle as well as knee. Patient held in flexed position of the knee. No pain of the hip on the right. Normal position of bilateral upper extremities and left lower extremity. 2+ dorsalis pedis bilaterally. Normal sensation throughout. Hips are nontender, no pedal edema, normal color and temperature, normal range of motion of extremities with normal tendon exam, 2+ pulses in all four extremities Initial Vital Signs Initial Vital Signs: Vital Signs Temperature 97.1 F L 12/06/22 11:56 Pulse Rate 78 12/06/22 11:56 Respiratory Rate 19 12/06/22 11:56 Blood Pressure 112/85 12/06/22 11:56 Pulse Oximetry 97 12/06/22 11:56 Oxygen Delivery Method Room Air 12/06/22 11:56 Course Orders Ordered: ED Orders 12/06/22 12:04 XR knee RT 1to2V Stat 12/06/22 12:05 XR ankle RT min 3V Stat XR tibia fibula RT 2V Stat 12/06/22 12:08 CT cervical spine wo con Stat CT head/brain wo con Stat Chest [XR chest 1V] Stat 12/06/22 12:59 EKG-12 Lead Stat 12/06/22 13:15 Complete Blood Count AUTO DIFF Stat Prothrombin Time INR Stat 12/06/22 14:20 Comprehensive Metabolic Panel Stat Lipase Stat Acetaminophen (Acetaminophen 325 Mg Tablet) 650 mg PO Q4H PRN PRN Reason: Fever/Mild Pain (1-3) Atorvastatin Calcium (Atorvastatin 20 Mg Tablet) 10 mg PO BEDTIME LULU Donepezil HCl (Donepezil 5 Mg Tablet) 10 mg PO DAILY LULU Ferrous Sulfate (Ferrous Sulfate 325 Mg Tablet) 325 mg PO DAILY LULU Haloperidol (Haloperidol 5 Mg/Ml Vial) 1 mg IV Q1H PRN PRN Reason: Agitation/nausea Last Admin: 12/06/22 17:46 Dose: 1 mg Documented By: RANGEL Hydromorphone HCl (Hydromorphone 0.5 Mg Inj) 0.5 mg IV Q3H PRN PRN Reason: Pain, Moderate (4-6) Last Admin: 12/06/22 18:31 Dose: 0.5 mg Documented By: SB Sodium Chloride (Normal Saline 0.9%) 1,000 mls @ 84 mls/hr IV CONT LULU Last Admin: 12/06/22 16:42 Dose: 84 mls/hr Documented By: SB Losartan Potassium (Losartan 25 Mg Tablet) 25 mg PO QPM LULU Magnesium Oxide (Magnesium Oxide 400 Mg Tablet) 200 mg PO QPM LULU Metoprolol Succinate (Metoprolol Er 50 Mg Tablet) 100 mg PO DAILY LULU Ondansetron HCl (Ondansetron 4 Mg/2 Ml Inj) 4 mg IV NOW PRN PRN Reason: Nausea And Vomiting Last Admin: 12/06/22 16:45 Dose: 4 mg Documented By: SB Ondansetron HCl (Ondansetron 4 Mg/2 Ml Inj) 4 mg IV Q4HR PRN PRN Reason: Nausea And Vomiting Vitamin D (Cholecalciferol (Vitamin D3) 1,000 Unit Tablet) 2,000 unit PO DAILY COUNTS INCLUDE 234 BEDS AT THE [facility] Discontinued Medications Acetaminophen (Acetaminophen 325 Mg Tablet) 975 mg PO NOW ONE Stop: 12/06/22 14:28 Last Admin: 12/06/22 14:38 Dose: 975 mg Documented By: KIMMY Hydromorphone HCl (Hydromorphone 1 Mg Inj) 1 mg IV NOW ONE Stop: 12/06/22 15:53 Last Admin: 12/06/22 15:55 Dose: 1 mg Documented By: SB Morphine Sulfate (Morphine 2 Mg/Ml Inj) 2 mg IV NOW ONE Stop: 12/06/22 13:12 Last Admin: 12/06/22 13:22 Dose: 2 mg Documented By: RL Morphine Sulfate (Morphine 2 Mg/Ml Inj) 2 mg IV NOW ONE Stop: 12/06/22 14:28 Last Admin: 12/06/22 14:38 Dose: 2 mg Documented By: RL Vital Signs Vital signs: Vital Signs - 8 hr 12/06/22 11:56 12/06/22 12:43 12/06/22 12:38 Temperature 97.1 F L Pulse Rate 78 73 Pulse Rate [Right Dorsalis Pedis] 82 Respiratory Rate 19 Blood Pressure 112/85 Pulse Oximetry 97 99 Oxygen Delivery Method Room Air 12/06/22 12:39 12/06/22 12:39 12/06/22 12:45 Temperature Pulse Rate 77 69 Pulse Rate [Right Dorsalis Pedis] Respiratory Rate Blood Pressure 127/77 Pulse Oximetry 99 99 Oxygen Delivery Method 12/06/22 12:45 12/06/22 13:00 12/06/22 13:00 Temperature Pulse Rate 80 Pulse Rate [Right Dorsalis Pedis] Respiratory Rate Blood Pressure 116/74 118/71 Pulse Oximetry 100 Oxygen Delivery Method 12/06/22 13:30 12/06/22 13:30 12/06/22 13:45 Temperature Pulse Rate 71 Pulse Rate [Right Dorsalis Pedis] Respiratory Rate Blood Pressure 120/69 116/74 Pulse Oximetry 98 Oxygen Delivery Method 12/06/22 13:45 12/06/22 14:00 12/06/22 14:01 Temperature Pulse Rate 68 73 Pulse Rate [Right Dorsalis Pedis] Respiratory Rate Blood Pressure 115/68 Pulse Oximetry 98 96 Oxygen Delivery Method 12/06/22 14:01 12/06/22 14:16 12/06/22 14:16 Temperature Pulse Rate 72 67 Pulse Rate [Right Dorsalis Pedis] Respiratory Rate Blood Pressure 125/77 Pulse Oximetry 95 99 Oxygen Delivery Method 12/06/22 14:30 12/06/22 15:00 Temperature Pulse Rate 87 Pulse Rate [Right Dorsalis Pedis] Respiratory Rate Blood Pressure Pulse Oximetry 98 99 Oxygen Delivery Method - Fall Lab Data 12/06/22 13:15 12/06/22 14:20 Labs: Lab Results 12/06/22 12/06/22 12/06/22 Range/Units 13:15 13:15 14:20 WBC 4.2 L (4.5-11.0) X10^3/uL RBC 4.31 (4.0-5.2) X10^6/uL Hgb 12.8 (12.0-16.0) g/dL Hct 37.8 (36-46) % MCV 87.7 (80-100) fL MCH 29.7 (26-34) PG MCHC 33.9 (30-36) % RDW 18.9 H (11.6-14.8) % Plt Count 147 L (150-400) X10^3/uL Neut % (Auto) 67.3 (50-75) % Lymph % (Auto) 20.9 L (25-40) % [place] % (Auto) 6.5 (3-14) % Eos % (Auto) 3.9 (2-4) % Baso % (Auto) 1.4 (0-2) % Neut # (Auto) 2800 (0332-8367) /uL Lymph # (Auto) 900 L (2990-0420) /uL [place] # (Auto) 300 (0-900) /uL Eos # (Auto) 200 (0-450) /uL Baso # (Auto) 100 (0-100) /uL PT 13.4 H (10.1-12.7) SECONDS INR 1.2 (0.9-1.3) Sodium 135 L (137-145) mmol/L Potassium 4.0 (3.4-5.1) mmol/L Chloride 106 (98-107) mmol/L Carbon Dioxide 25 (22-32) mmol/L BUN 14 (7-17) mg/dL Creatinine 0.64 (0.52-1.04) mg/dL Estimated GFR > 60 (>60) mL/min BUN/Creatinine Ratio 21.9 (6-22) Glucose 100 (80-110) mg/dL Calcium 9.7 (8.4-10.2) mg/dL Total Bilirubin 1.5 H (0.2-1.3) mg/dL AST 37 H (14-36) IU/L ALT 34 (<35) IU/L Alkaline Phosphatase 85 (38-126) U/L Total Protein 5.9 L (6.3-8.2) g/dL Albumin 3.4 L (3.5-5.0) g/dL Globulin 2.5 (1.7-4.1) g/dL Albumin/Globulin Ratio 1.4 (1.0-2.8) Lipase 600 H (23-300) U/L ECG Data Attestation: I personally reviewed and interpreted this ECG as follows: Interpretation: AFib rate of 71 QRS of 90 QTC of 402. No acute ST changes appreciated. MDM Narrative Medical decision making narrative: 77-year-old female anticoagulated on Xarelto for atrial fibrillation had tripped over a has a head injury head CT is negative C-spine ordered as she has some baseline dementia. Cardiomegaly on chest x-ray, patient has patellar fracture as well as right bimalleolar fracture. Labs show a bilirubin of 1.5, AST of 37 lipase 600 but no symptoms currently. Patient's findings reviewed with hospitalist. Discussed all findings, recommendations from Orthopedic surgery and plan for OR tomorrow and with patient and her who is at bedside. Case discussed with Dr. Franz from Orthopedic surgery. NPO after midnight, DC patient's anticoagulation admit to Medicine with plan for fixation of ankle and patella tomorrow. Plan for posterior splint with or without stirrup and immobilizer for knee. Patient is neurovascularly intact. Spoke with Dr. Aldridge accepts for inpatient admission. Reviewed recommendations from Dr. Richrads. Patient received IV pain medication and placed in posterior with stirrup splint for her right ankle with some traction for improved alignment as well as knee immobilizer. Patient was splinted by myself along with nursing. Raghu rovascularly intact. Patient tolerated quite well. Discharge Plan Departure Patient Disposition: Admitted As Inpatient Clinical Impression: Ankle fracture, Patellar fracture, Fall Admit Date/Time: 12/06/22 15:05 Admit Provider: Eleonora Enriquez
[2022-12-06] MEDS: ACETAMINOPHEN 325 MG TABLET 975 MG PO (14:38)
[2022-12-06 15:00] LABS: Alanine Aminotransferase 34 IU/L (<35); Albumin 3.4 g/dL (3.5-5.0); Albumin Globulin Ratio 1.4 (1.0-2.8); Alkaline Phosphatase 85 U/L (38-126); Aspartate Aminotransferase 37 IU/L (14-36); BUN Creatinine Ratio 21.9 (6-22); Bilirubin Total 1.5 mg/dL (0.2-1.3); Blood Urea Nitrogen 14 mg/dL (7-17); Calcium 9.7 mg/dL (8.4-10.2); Carbon Dioxide 25 mmol/L (22-32); Chloride 106 mmol/L (98-107); Estimated Glomerular Filt Rate > 60 mL/min (>60); Globulin 2.5 g/dL (1.7-4.1); Glucose 100 mg/dL (80-110); HEMOLYSIS < 15 (0-50); Lipase 600 U/L (23-300); Sodium 135 mmol/L (137-145); Total Protein 5.9 g/dL (6.3-8.2)
--- NOTE | 2022-12-06 15:35 | PM.HP.1 ---
History of Present Illness History of Present Illness Chief complaint: right ankle injury/rt eye Narrative: Hannah Rm is a 77-year-old female with history of atrial fibrillation on rivaroxaban, history of colorectal cancer receiving infusions, hypertension dyslipidemia as well as Alzheimer's disease.? She presented with ground level fall where she tripped over a hose at home.? She did hit her has a small abrasion on her right brow, no vision changes and denied headache neck pain or back pain.? No loss of consciousness reported.? No chest pain or shortness of breath.? No nausea or vomiting, no loss of bowel or bladder control, no issues with bowel movements or urination.? She complained of pain particularly in her right ankle and knee.? None in her hip.? She has pain with any sort of movement.? No numbness or tingling.? Patient does receive infusions for her colorectal cancer, takes medication for hypertension dyslipidemia and atrial fibrillation.? Denied cardiac stents or pacemaker.? Her primary care is Dr. Stout.? She follows with Dr. Tovar for Cardiology and her oncology is in [place].? She was accompanied by her on presentation. ? Patient stated that she ambulates without walker or assistance normally. X-rays in the ER indicate right transverse patellar fracture with distraction as well as right bimalleolar fracture with lateral subluxation. Has significant pain at fracture sites. [facility] Medical History Chicken pox Chronic anticoagulation Chronic atrial fibrillation Dementia Diarrhea Do not resuscitate Essential hypertension GERD without esophagitis GI bleed Hyperlipidemia Hypertension Iron deficiency anemia Measles Migraines Mild cognitive disorder Mixed hyperlipidemia Osteopenia Rectal adenocarcinoma Wears glasses Surgical History Anesthesia History of colonoscopy History of hysterectomy History of partial colectomy Status post colostomy takedown Family History Mother Stroke History of heart disease Hypertension Hyperlipidemia Father Parkinson's disease (tremor, stiffness, slow motion, unstable posture) History of heart disease Hypertension Hyperlipidemia Grandfather History of heart disease Grandfather Cancer Social History marital status: details: (Berto), no children household members: spouse Smoking Status: Never smoker alcohol intake: former Meds Home Medications and Allergies Home Medications Medication Instructions Recorded Confirmed Type rosuvastatin 5 mg tablet 5 mg PO QPM 02/06/21 12/06/22 History cholecalciferol (vitamin D3) 50 50 mcg PO QAM 12/16/21 12/06/22 History mcg (2,000 unit) capsule magnesium 250 mg tablet 250 mg PO QPM 12/16/21 12/06/22 History metoprolol succinate 100 mg 100 mg PO QAM 12/16/21 12/06/22 History tablet,extended release 24 hr ferrous sulfate 325 mg (65 mg 325 mg PO QAM 06/30/22 12/06/22 History iron) tablet losartan 25 mg tablet 25 mg PO QPM 07/16/22 12/06/22 History acetaminophen 325 mg capsule 650 mg PO QID PRN pain #60 caps 09/05/22 12/06/22 Rx (Tylenol) donepezil 10 mg tablet 10 mg PO QAM 12/06/22 12/06/22 History rivaroxaban 10 mg tablet 10 mg PO QPM 12/06/22 12/06/22 History Allergies Allergy/AdvReac Type Severity Reaction Status Date / Time No Known Drug Allergies Allergy Verified 12/06/22 13:16 Review of Systems Review of Systems Narrative: Fourteen system review was completed and pertinent findings in the history of chief complaint. Exam Vital Signs (past 8 hours): - 12/06/22 11:56 12/06/22 12:43 12/06/22 12:38 Temperature 97.1 F L Pulse Rate 78 73 Pulse Rate [Right Dorsalis Pedis] 82 Respiratory Rate 19 Blood Pressure 112/85 Pulse Oximetry 97 99 Oxygen Delivery Method Room Air 12/06/22 12:39 12/06/22 12:39 12/06/22 12:45 Temperature Pulse Rate 77 69 Pulse Rate [Right Dorsalis Pedis] Respiratory Rate Blood Pressure 127/77 Pulse Oximetry 99 99 Oxygen Delivery Method 12/06/22 12:45 12/06/22 13:00 12/06/22 13:00 Temperature Pulse Rate 80 Pulse Rate [Right Dorsalis Pedis] Respiratory Rate Blood Pressure 116/74 118/71 Pulse Oximetry 100 Oxygen Delivery Method 12/06/22 13:30 12/06/22 13:30 12/06/22 13:45 Temperature Pulse Rate 71 Pulse Rate [Right Dorsalis Pedis] Respiratory Rate Blood Pressure 120/69 116/74 Pulse Oximetry 98 Oxygen Delivery Method 12/06/22 13:45 12/06/22 14:00 12/06/22 14:01 Temperature Pulse Rate 68 73 Pulse Rate [Right Dorsalis Pedis] Respiratory Rate Blood Pressure 115/68 Pulse Oximetry 98 96 Oxygen Delivery Method 12/06/22 14:01 12/06/22 14:16 12/06/22 14:16 Temperature Pulse Rate 72 67 Pulse Rate [Right Dorsalis Pedis] Respiratory Rate Blood Pressure 125/77 Pulse Oximetry 95 99 Oxygen Delivery Method 12/06/22 14:30 12/06/22 15:00 12/06/22 15:19 Temperature Pulse Rate 87 73 Pulse Rate [Right Dorsalis Pedis] Respiratory Rate Blood Pressure Pulse Oximetry 98 99 99 Oxygen Delivery Method 12/06/22 15:19 Temperature Pulse Rate Pulse Rate [Right Dorsalis Pedis] Respiratory Rate Blood Pressure 117/81 Pulse Oximetry Oxygen Delivery Method Oxygen Delivery Method Room Air Narrative Exam Narrative: GEN: Patient appears in mild distress. HEAD:? Patient has a abrasion at right upper brow, mild swelling. NECK: Nontender, painless range of motion, trachea midline EYES: PERRLA, EOMI ENT: External inspection normal, trachea is midline, RESP: Chest is nontender and has symmetric movement, no ecchymosis, breath sounds are normal no crackles, wheezes or rales CVS: Heart sounds are normal, no murmur noted, No JVD. ABG/GI: Nontender, soft, normal bowel sounds, no distention, no organomegaly, pelvic rock is negative NEURO: Oriented AOx3, neuro is grossly intact, sensation and motor is normal all 4 extremities moving, cranial nerves II through XII are intact, GCS is 15, patient has baseline dementia but answers questions appropriately overall. PSYCH: Normal mood and affect SKIN: Intact, warm and dry, no crepitus and without decubitus BACK: No CVA tenderness, no vertebral tenderness, no step-off's, no crepitus EXT:? Patient has swelling at right ankle as well as knee.? Patient held in flexed position of the knee.? No pain of the hip on the right.? Normal position of bilateral upper extremities and left lower extremity.? 2+ dorsalis pedis bilaterally.? Normal sensation throughout.? Hips are nontender, no pedal edema, normal color and temperature, normal range of motion of extremities with normal tendon exam, 2+ pulses in all four extremities Objective Labs 12/06/22 13:15 12/06/22 14:20 Labs: Laboratory Results - last 24 hr 12/06/22 12/06/22 12/06/22 13:15 13:15 14:20 WBC 4.2 L RBC 4.31 Hgb 12.8 Hct 37.8 MCV 87.7 MCH 29.7 MCHC 33.9 RDW 18.9 H Plt Count 147 L Neut % (Auto) 67.3 Lymph % (Auto) 20.9 L [place] % (Auto) 6.5 Eos % (Auto) 3.9 Baso % (Auto) 1.4 Neut # (Auto) 2800 Lymph # (Auto) 900 L [place] # (Auto) 300 Eos # (Auto) 200 Baso # (Auto) 100 PT 13.4 H INR 1.2 Sodium 135 L Potassium 4.0 Chloride 106 Carbon Dioxide 25 BUN 14 Creatinine 0.64 Estimated GFR > 60 BUN/Creatinine Ratio 21.9 Glucose 100 Calcium 9.7 Total Bilirubin 1.5 H AST 37 H ALT 34 Alkaline Phosphatase 85 Total Protein 5.9 L Albumin 3.4 L Globulin 2.5 Albumin/Globulin Ratio 1.4 Lipase 600 H Assessment & Plan Assessment & Plan narrative: 1. Ground level fall with tripping on hose at home. 2. Right patellar transfer fracture is distracted. Plan for open reduction internal fixation on December 07, 2022. 3. Right right bimalleolar ankle fracture with lateral subluxation. Plan for open reduction internal fixation on December 07, 2022. 4. Alzheimer's. is present to help with any of recollection. 5. Atrial fibrillation on rivaroxaban. Rivaroxaban to be held for planned surgery on December 07, 2022. 6. Hypertension. Maintain patient's regular medication. 7. Hyperlipidemia. Maintain patient's regular medication. 8. Colorectal cancer. No active treatment during this hospital stay. 9. Abrasion right brow. CT of the head shows no acute findings. I have utilized all available immediate resources to obtain, update, or review the patient's current medications. Additional history is obtained via discussion with the ER provider and I have reviewed current labs and imaging findings. Patient to be admitted as Inpatient with expectation to be in hospital more than 2 midnights. Code status: DNR Surrogate decision maker: Berto Rm DVT prophylaxis :? Held due to surgery tomorrow COVID-19 COVID-19 status: Not tested Time Spent With Patient Time with patient: 70 minutes or more, with 50% spent counseling/coordinating Quality MIPS - Admit I confirm the patient?s Advance Care Plan is present, Code status is documented, Surrogate decision maker is in patient?s record: Yes MIPS - Meds 'Current medications' to include all prescriptions, [id number] products, herbals, cannabis/cannabidiol products, and vitamin/mineral/dietary (nutritional) supplements. I have utilized all available resources to obtain, update, or review the patient?s current medications. [If Yes, STOP here]: Yes
[2022-12-06] MEDS: HYDROMORPHONE 1 MG INJ IV (15:55)
[2022-12-06] MEDS: SODIUM CHLORIDE 0.9% 1,000 ML 84 ML IV (16:42)
[2022-12-06] MEDS: ONDANSETRON 4 MG/2 ML INJ IV ×2 (16:45→23:44)
--- NOTE | 2022-12-06 16:52 | P.CONS_ITS ---
History of Present Illness Consult details Date Patient Seen: 12/06/22 Time Patient Seen: 20:34 Chief complaint: right ankle injury/rt eye Reason for consult: Right ankle fracture, right patella fracture Requesting provider: Emily Norwood Narrative: Patient is a 77-year-old female mild dementia that lives at home with her . She was walking today when she fell sustaining a right leg injury. She was brought to [facility] where she was found to have Right ankle fracture and right patella fracture. She was indicated for hospital admission for fracture fixation. She also sustained a head contusion. She is admitted to the internal medicine team. Orthopedics has been consulted for her right lower extremity injuries. She is seen up in her room. She is able to give some history and answer questions. She does state that her signs forms and makes medical decisions for her he will be back in the morning. She has atrial fibrillation is on chronic Pradaxa last dose evening of 12/05 Meds Home Medications and Allergies Home Medications Medication Instructions Recorded Confirmed Type rosuvastatin 5 mg tablet 5 mg PO QPM 02/06/21 12/06/22 History cholecalciferol (vitamin D3) 50 50 mcg PO QAM 12/16/21 12/06/22 History mcg (2,000 unit) capsule magnesium 250 mg tablet 250 mg PO QPM 12/16/21 12/06/22 History metoprolol succinate 100 mg 100 mg PO QAM 12/16/21 12/06/22 History tablet,extended release 24 hr ferrous sulfate 325 mg (65 mg 325 mg PO QAM 06/30/22 12/06/22 History iron) tablet losartan 25 mg tablet 25 mg PO QPM 07/16/22 12/06/22 History acetaminophen 325 mg capsule 650 mg PO QID PRN pain #60 caps 09/05/22 12/06/22 Rx (Tylenol) donepezil 10 mg tablet 10 mg PO QAM 12/06/22 12/06/22 History rivaroxaban 10 mg tablet 10 mg PO QPM 12/06/22 12/06/22 History Allergies Allergy/AdvReac Type Severity Reaction Status Date / Time No Known Drug Allergies Allergy Verified 12/06/22 13:16 Review of Systems Review of Systems ROS: Yes All systems reviewed with the patient and are negative except as otherwise documented Exam Vital Signs (past 8 hours): - 12/06/22 11:56 12/06/22 12:43 12/06/22 12:38 Temperature 97.1 F L Pulse Rate 78 73 Pulse Rate [Right Dorsalis Pedis] 82 Respiratory Rate 19 Blood Pressure 112/85 Pulse Oximetry 97 99 Oxygen Delivery Method Room Air 12/06/22 12:39 12/06/22 12:39 12/06/22 12:45 Temperature Pulse Rate 77 69 Pulse Rate [Right Dorsalis Pedis] Respiratory Rate Blood Pressure 127/77 Pulse Oximetry 99 99 Oxygen Delivery Method 12/06/22 12:45 12/06/22 13:00 12/06/22 13:00 Temperature Pulse Rate 80 Pulse Rate [Right Dorsalis Pedis] Respiratory Rate Blood Pressure 116/74 118/71 Pulse Oximetry 100 Oxygen Delivery Method 12/06/22 13:30 12/06/22 13:30 12/06/22 13:45 Temperature Pulse Rate 71 Pulse Rate [Right Dorsalis Pedis] Respiratory Rate Blood Pressure 120/69 116/74 Pulse Oximetry 98 Oxygen Delivery Method 12/06/22 13:45 12/06/22 14:00 12/06/22 14:01 Temperature Pulse Rate 68 73 Pulse Rate [Right Dorsalis Pedis] Respiratory Rate Blood Pressure 115/68 Pulse Oximetry 98 96 Oxygen Delivery Method 12/06/22 14:01 12/06/22 14:16 12/06/22 14:16 Temperature Pulse Rate 72 67 Pulse Rate [Right Dorsalis Pedis] Respiratory Rate Blood Pressure 125/77 Pulse Oximetry 95 99 Oxygen Delivery Method 12/06/22 14:30 12/06/22 15:00 12/06/22 15:19 Temperature Pulse Rate 87 73 Pulse Rate [Right Dorsalis Pedis] Respiratory Rate Blood Pressure Pulse Oximetry 98 99 99 Oxygen Delivery Method 12/06/22 15:19 Temperature Pulse Rate Pulse Rate [Right Dorsalis Pedis] Respiratory Rate Blood Pressure 117/81 Pulse Oximetry Oxygen Delivery Method Oxygen Delivery Method Room Air Narrative Exam Narrative: General exam patient is alert answers simple questions HEENT exam contusion around her right eye Respiratory exam unlabored on room air lungs clear to auscultation Heart regular rate Abdomen soft Moving bilateral upper extremities without limitation Moving left lower extremity without limitation Right lower extremity in a splint and a knee immobilizer. She demonstrates traits wiggling her toes. She endorses sensation to palpation. Thigh and lower extremity compartments soft. Remainder of motor exam right lower extremity d eferred due to known injuries. She is known to have a large diastasis transverse patella fracture incompatible with retention of the extensor mechanism Objective Imaging Knee x-ray right: My impression: AP and lateral right knee demonstrate transverse patella fracture with 3 cm d iastasis consistent with disrupted extensor mechanism. There is valgus knee arthritis with lateral joint space narrowing and marginal osteophytes Radiologist's impression: Transverse patella fracture proximally 3.3 cm distraction through the fracture fragments tricompartmental degenerative changes right knee X-ray right ankle: My impression: Three views right ankle AP oblique and lateral demonstrate displaced bimalleolar ankle fracture lateral subluxation of the talus Radiologist's impression: Bimalleolar ankle fracture with lateral subluxation of the talus relative to the distal tibia overall ankle mortise appears to be maintained Labs 12/06/22 13:15 12/06/22 14:20 Labs: Laboratory Results - last 24 hr 12/06/22 12/06/22 12/06/22 13:15 13:15 14:20 WBC 4.2 L RBC 4.31 Hgb 12.8 Hct 37.8 MCV 87.7 MCH 29.7 MCHC 33.9 RDW 18.9 H Plt Count 147 L Neut % (Auto) 67.3 Lymph % (Auto) 20.9 L [place] % (Auto) 6.5 Eos % (Auto) 3.9 Baso % (Auto) 1.4 Neut # (Auto) 2800 Lymph # (Auto) 900 L [place] # (Auto) 300 Eos # (Auto) 200 Baso # (Auto) 100 PT 13.4 H INR 1.2 Sodium 135 L Potassium 4.0 Chloride 106 Carbon Dioxide 25 BUN 14 Creatinine 0.64 Estimated GFR > 60 BUN/Creatinine Ratio 21.9 Glucose 100 Calcium 9.7 Total Bilirubin 1.5 H AST 37 H ALT 34 Alkaline Phosphatase 85 Total Protein 5.9 L Albumin 3.4 L Globulin 2.5 Albumin/Globulin Ratio 1.4 Lipase 600 H [facility] Medical History Chicken pox Chronic anticoagulation Chronic atrial fibrillation Dementia Diarrhea Do not resuscitate Essential hypertension GERD without esophagitis GI bleed Hyperlipidemia Hypertension Iron deficiency anemia Measles Migraines Mild cognitive disorder Mixed hyperlipidemia Osteopenia Rectal adenocarcinoma Wears glasses Surgical History Anesthesia History of colonoscopy History of hysterectomy History of partial colectomy Status post colostomy takedown Family History Mother Stroke History of heart disease Hypertension Hyperlipidemia Father Parkinson's disease (tremor, stiffness, slow motion, unstable posture) History of heart disease Hypertension Hyperlipidemia Grandfather History of heart disease Grandfather Cancer Social History marital status: details: (Berto), no children household members: spouse Tobacco & Substance Use Smoking Status: Never smoker alcohol intake: former Assessment & Plan Assessment and plan (1) Ankle fracture: Qualifiers: Encounter type: initial encounter Fracture type: closed Laterality: right Qualified Code(s): S82.891A - Other fracture of right lower leg, initial encounter for closed fracture Status: Acute (2) Patellar fracture: Qualifiers: Encounter type: initial encounter Fracture type: closed Fracture morphology: transverse Fracture alignment: displaced Laterality: right Qualified Code(s): S82.031A - Displaced transverse fracture of right patella, initial encounter for closed fracture Status: Acute Plan R ankle fracture- patricia- unstable ankle fracture- indicated for ORIF- R patella fx, displaced transverse with violation of extensor mechanism- indicated for ORIF ipsilateral surgical injuries: plan of OR tomorrow for ORIF ankle, ORIF patella. 1. NPO MD 2. Hold anticoagulation The risks and benefits of the procedure have been discussed with the patient and given the opportunity to ask questions. The risks of surgery include but are not limited to infection, malunion, nonunion, persistence of pain, damage to nerves and blood vessels, posttraumatic arthritis, DVT, PE, cardiopulmonary complications and . Patient is scheduled for surgery to follow tomorrow for fixation of both her ankle and her patella fractures. We will go over the consent again formally once her is available tomorrow morning. Decision for major orthopedic surgery. Fixation of 2 separate anatomic locations lower extremity: Right knee and right ankle Patient will be touchdown weight-bearing for balance in a splint and knee i mmobilizer after surgery then start progressive weight-bearing after she comes to the outpatient clinic in 2 weeks. Assessment & Plan narrative: High-level medical decision-making. Multiple injuries, polytrauma patient requiring 2 separate anatomic locations for fixation. Indicated for inpatient admitted amaya for surgery and may require discharge assistance with penitentiary depending on home resources and limited mobility. Medically complex patient on chronic anticoagulation. Currently holding anticoagulation. Would restart after surgery. Time Spent With Patient Time with patient: 50 to 69 minutes with 50% spent counseling/coordinating care
--- NOTE | 2022-12-06 17:19 | PC.NURSE ---
Day shift: Patient admitted to the floor from ED. Pt A&Ox4, though unsure of exact date. Mildly impaired short term memory and slow to respond. VS WNL. Pt is diaphoretic and nauseous. Emesis x 2. IV zofran given. No relief. Emesis x 1. Notified MD Enriquez who ordered 1mg IV Haldol for nausea. Pt reports relief. This RN held her 1700 PO medications due to frequent emesis and nausea. Told night RN, Ervin, during report. IV dilaudid given for pain in RLE. CMS on RLE in tact, cap refill <2 sec. Pt denies numbness or tingling. Pt came up to floor with RLE wrapped in charissa + knee immobilizer. Small abrasion above R eye. No headache or dizziness. NS @ 84mL/hr. Pt attempted to use bedpan to void with no results. Applied Purewic cathetar. Pt able to void. , Berto, at bedside for 1 hour this evening and stated he would return at 0630am tomorrow before planned surgery. Plan is for NPO at [place] with OR at 0800 tomorrow. Will continue to monitor.
[2022-12-06] MEDS: HALOPERIDOL 5 MG/ML VIAL 1 MG IV ×2 (17:46→20:21)
[2022-12-06] MEDS: HYDROMORPHONE 0.5 MG INJ IV ×2 (18:31→23:44)
[2022-12-07] VITALS (13 sets, daily range): BP systolic 103–137; BP diastolic 66–89; PULSE 60–117; RESP 12–22; TEMP 35.9–36.8; O2SAT 94–98; BMI 25.2
--- NOTE | 2022-12-07 | DI.RAD.S_ITS ---
PROCEDURE: XR ANKLE RT 2V INDICATIONS: SURGERY TECHNIQUE: 4 intraoperative fluoroscopic views of the ankle were acquired. COMPARISON: , , XR ANKLE RT MIN 3V, 12/06/2022, 12:07. FINDINGS: Intraoperative fluoroscopic images of right ankle shows internal fixation of previously noted by malleolar fracture of the ankle. Ankle alignment is anatomic. IMPRESSION: Fluoro guidance was provided intraoperatively for ORIF of right ankle. Dictated by: Fredrick Lomeli M.D. on 12/07/2022 at 19:12 Approved by: Fredrick Lomeli M.D. on 12/07/2022 at 19:13
--- NOTE | 2022-12-07 | DI.RAD.S_ITS ---
PROCEDURE: XR KNEE RT 1TO2V INDICATIONS: SURGERY TECHNIQUE: 3 views of the knee were acquired. COMPARISON: [facility], , XR KNEE RT 1TO2V, 12/06/2022, 12:07. FINDINGS: 3 intraoperative fluoroscopic views demonstrate open reduction and internal fixation of the previously described right patellar fracture. There is improved alignment with subsequent placement of 2 fixation screws. IMPRESSION: 1. Improved alignment status post ORIF of right patellar fracture. Dictated by: Ming Espino M.D. on 12/07/2022 at 21:37 Approved by: Ming Espino M.D. on 12/07/2022 at 21:37
[2022-12-07 05:14] LABS: Add Manual Diff / Slide Review NO; Basophils Absolute Auto 0 /uL (0-100); Basophils Percent Auto 0.6 % (0-2); Eosinophils Absolute Auto 0 /uL (0-450); Eosinophils Percent Auto 0.4 % (2-4); Hematocrit 32.5 % (36-46); Hemoglobin 11.2 g/dL (12.0-16.0); Lymphocytes Absolute Auto 1000 /uL (1100-4500); Lymphocytes Percent Auto 28.2 % (25-40); Mean Corpuscular HGB Conc 34.4 % (30-36); Mean Corpuscular Hemoglobin 30.2 PG (26-34); Mean Corpuscular Volume 87.7 fL (80-100); Monocytes Absolute Auto 400 /uL (0-900); Neutrophils Absolute Auto 2100 /uL (1500-7000); Neutrophils Percent Auto 59.8 % (50-75); Platelet Count 125 X10^3/uL (150-400); Red Cell Distribution Width 18.2 % (11.6-14.8); White Blood Cell Count 3.5 X10^3/uL (4.5-11.0)
--- NOTE | 2022-12-07 05:20 | PC.NURSE ---
Patient was unable to void. This rfp writer bladder scanned patient and got 597mL. RN notified.
[2022-12-07 05:23] LABS: BUN Creatinine Ratio 21.7 (6-22); Blood Urea Nitrogen 13 mg/dL (7-17); Calcium 9.4 mg/dL (8.4-10.2); Carbon Dioxide 25 mmol/L (22-32); Chloride 105 mmol/L (98-107); Estimated Glomerular Filt Rate > 60 mL/min (>60); Glucose 108 mg/dL (80-110); HEMOLYSIS < 15 (0-50); Potassium 4.2 mmol/L (3.4-5.1); Sodium 134 mmol/L (137-145)
[2022-12-07] MEDS: SODIUM CHLORIDE 0.9% 1,000 ML 84 ML IV (05:37)
[2022-12-07] MEDS: HYDROMORPHONE 0.5 MG INJ IV ×2 (05:59→12:51)
[2022-12-07] MEDS: ONDANSETRON 4 MG/2 ML INJ IV ×3 (06:00→21:16)
[2022-12-07 08:21] LABS: Lipase 169 U/L (23-300)
[2022-12-07] MEDS: METOPROLOL ER 50 MG TABLET 100 MG PO (09:17)
[2022-12-07] MEDS: DONEPEZIL 5 MG TABLET 10 MG PO (09:17)
--- NOTE | 2022-12-07 10:17 | PC.NURSE ---
Addendum entered by Sania Jarvis R.N. 12/07/22 16:03: Patient returned to OR with [facility] at 1500. Addendum entered by Sania Jarvis R.N. 12/07/22 10:37: Pt returned to the floor at 1030 - per MD Richards, she needs to do a different surgery first. Connected patient back to her IV fluids. Plan for her to return to PACU in the next 2 hours. Pt continues to be NPO. Original Note: Day shift: Pt to OR at 1000. Her , Berto, accompanied her downstairs.
--- NOTE | 2022-12-07 10:45 | CM.DANOTE ---
DCP: Case received, EMR reviewed and met with patient. Spouse, Berto, was at bedside. Introduced self and role. Was able to obtain information regarding patient's baseline activity status at home prior to fall. DCP assessment completed with information currently available. Patient is a 77 year old female who admitted yesterday afternoon to the care of the hospitalist team. PCP: Dr. Stout. Payer: confirmed: Medicare/[employer]. Patient came to the hospital via private vehicle secondary to a ground level fall that occurred at home. Notes indicate that patient tripped over a hose at home. She does have early Alzheimers, per notes, as well. Patient has a cardiac history, and sees Dr. Tovar as well. Patient ended up with right transverse patellar fracture and right bimalleolar fracture of ankle. Plan is for surgery today. Met with patient and spouse in the room. Confirmed that patient does have some early dementia. Patient is pleasant, quiet, but answers questions appropriately. Spouse, Berto, is primary caregiver, and wants all questions to go through him, since his does have memory issues, patient stated is ok. Confirmed that before fall, she is independent, uses no DME devices. Patient no longer drives. Discussed discharge planning, home versus skilled, spouse is open to either or. Will depend upon how she does with P.T. She currently does not have orders, due to surgery planned today. P: DCP to continue to follow. Surgery is for today at approximately 11:00, will have to see how she does post surgery, and with P.T. Plan will most likely be home with home health, versus skilled. Will see if she makes inpatient status. Elizabeth Ochoa RN/Inspector Tubes Discharge Planning/Care Management CM Discharge Assessment Start: 12/07/22 10:39 Freq: Status: Active Protocol: Document 12/07/22 10:39 (Rec: 12/07/22 10:45 [id number]) Discharge Planning Assessment Assigned Manager Employee Benefits Elizabeth Ochoa RN/Inspector Tubes Advance Directives? Yes Advance Directives on File No History Provided By Patient,Medical Record Prior Living Arrangements House Household Members spouse Type of transporation used prior to Relies on Others admit Independent with ADL's Yes Is patient alert and oriented? To self, does have some early dementia Needs Assistance With Meal Prep,Managing Medications ,Home Chores / Shopping Caregiver for Another No Patient/Family Preference Home with Home Health Comment Will have to see how she does after surgery Barriers to Discharge No Comment Has supportive spouse at home. One barrier could be if she does not make inpatient status , and skilled is recommended Discharge Plan Home with Home Health Transportation Arrangement Spouse Referrals Initiated Other Additional Comment Will have to see how patient does post surgery Whiteboard Updated in Patient Room with Yes name and ext. # of Manager Employee Benefits Review Status In Process Next Review Type Continued Stay Review
--- NOTE | 2022-12-07 13:52 | P.PN_ITS ---
Subjective Subjective Interval history: Patient is still waiting for surgery. Will likely be taken to the OR within the hour. Inadequately controlled with current medication and similarly nausea is adequately controlled at this time with medication. No new complaints. Exam Vital Signs (past 8 hours): - 12/07/22 09:17 12/07/22 12:00 Temperature 98.2 F Pulse Rate 92 H Respiratory Rate 19 Blood Pressure 113/69 116/68 Pulse Oximetry 94 Oxygen Flow Rate 0 Oxygen Delivery Method Room Air Oxygen Flow Rate 0 Narrative Exam Narrative: GEN: Patient appears in no acute medical distress. HEAD:? Patient has a abrasion at right upper brow, mild swelling, healing well. EYES: PERRLA, EOMI ENT: External inspection normal, trachea is midline, RESP: Chest is nontender and has symmetric movement CVS: Heart sounds are normal, no murmur noted, No JVD. ABG/GI: Nontender, soft, normal bowel sounds NEURO: Oriented AOx3, neuro is grossly intact, sensation and motor is normal, has dementia. PSYCH: Normal mood and affect EXT:? Right knee and right ankle are dressed with the underlying fractures. Objective Labs 12/07/22 05:00 12/07/22 05:00 Labs: Laboratory Results - last 24 hr 12/06/22 12/07/22 12/07/22 14:20 05:00 05:00 WBC 3.5 L RBC 3.70 L Hgb 11.2 L Hct 32.5 L MCV 87.7 MCH 30.2 MCHC 34.4 RDW 18.2 H Plt Count 125 L Neut % (Auto) 59.8 Lymph % (Auto) 28.2 [place] % (Auto) 11.0 Eos % (Auto) 0.4 L Baso % (Auto) 0.6 Neut # (Auto) 2100 Lymph # (Auto) 1000 L [place] # (Auto) 400 Eos # (Auto) 0 Baso # (Auto) 0 Sodium 135 L 134 L Potassium 4.0 4.2 Chloride 106 105 Carbon Dioxide 25 25 BUN 14 13 Creatinine 0.64 0.60 Estimated GFR > 60 > 60 BUN/Creatinine Ratio 21.9 21.7 Glucose 100 108 Calcium 9.7 9.4 Total Bilirubin 1.5 H AST 37 H ALT 34 Alkaline Phosphatase 85 Total Protein 5.9 L Albumin 3.4 L Globulin 2.5 Albumin/Globulin Ratio 1.4 Lipase 600 H 12/07/22 05:00 WBC RBC Hgb Hct MCV MCH MCHC RDW Plt Count Neut % (Auto) Lymph % (Auto) [place] % (Auto) Eos % (Auto) Baso % (Auto) Neut # (Auto) Lymph # (Auto) [place] # (Auto) Eos # (Auto) Baso # (Auto) Sodium Potassium Chloride Carbon Dioxide BUN Creatinine Estimated GFR BUN/Creatinine Ratio Glucose Calcium Total Bilirubin AST ALT Alkaline Phosphatase Total Protein Albumin Globulin Albumin/Globulin Ratio Lipase 169 D [facility] Medical History Chicken pox Chronic anticoagulation Chronic atrial fibrillation Dementia Diarrhea Do not resuscitate Essential hypertension GERD without esophagitis GI bleed Hyperlipidemia Hypertension Iron deficiency anemia Measles Migraines Mild cognitive disorder Mixed hyperlipidemia Osteopenia Rectal adenocarcinoma Wears glasses Surgical History Anesthesia History of colonoscopy History of hysterectomy History of partial colectomy Status post colostomy takedown Family History Mother Stroke History of heart disease Hypertension Hyperlipidemia Father Parkinson's disease (tremor, stiffness, slow motion, unstable posture) History of heart disease Hypertension Hyperlipidemia Grandfather History of heart disease Grandfather Cancer Social History marital status: details: (Berto), no children household members: spouse Smoking Status: Never smoker alcohol intake: former Assessment & Plan Assessment & Plan narrative: 1. Ground level fall with tripping on hose at home. 2. Right patellar transfer fracture is distracted.? Plan for open reduction int ernal fixation today. 3. Right right bimalleolar ankle fracture with lateral subluxation.? Plan for open reduction internal fixation today. 4. Alzheimer's.? is present to help with any of recollection. 5. Atrial fibrillation on rivaroxaban.? Rivaroxaban to be held for planned surgery. 6. Hypertension.? Maintain patient's regular medication. 7. Hyperlipidemia.? Maintain patient's regular medication. 8. Colorectal cancer.? No active treatment during this hospital stay. 9. Abrasion right brow.? CT of the head shows no acute findings. No acute treatment. Code status: DNR Surrogate decision maker: Berto Rm DVT prophylaxis :? Held due to surgery today Quality VTE Deep Vein Thrombosis/Pulmonary Embolism Present on Admission: No
[2022-12-07] MEDS: LACTATED RINGERS 1,000 ML 42 ML IV ×3 (15:14→21:02)
[2022-12-07] MEDS: CEFAZOLIN 2 GM/100 ML PREMIX 100 ML IV (15:38)
--- NOTE | 2022-12-07 16:07 | PM.PNB.1 ---
Peripheral Nerve Block Note Pre-Procedure Reason for block: Attending surgeon request/order for post-op pain management Pre-procedure checklist: Patient examined and chart reviewed, Risks, benefits, alternatives of block discussed, questions answered (w/ pt and /POA), Verification of anti-coagulation status, Site confirmed, Timeout performed and Standard ASA monitors applied Consent obtained from: Caregiver Procedure Date of procedure: 12/07/22 Start Time: 15:21 End Time: 15:35 Performed by: Matty Camargo Sedation - enter dose in comment field: Other (include mg/mcg) (General) Location: Intra-Op Position: Supine Laterality: Right (FEMORAL N. BLOCK) Sterile Technique: Sterile barrier maintained, Sterile gloves, Mask, U/S probe cover and Chloraprep Equipment Single injection - Needle brand, gauge, length: Pajunk, 22g, 50mm Medications Medications - enter concentration (%) & mL in comment field: Ropivacaine (0.5%, 15mL) and Lidocaine (1.5% with epi) Incremental aspiration prior to injection: Yes Ultrasound Reason for Ultrasound: U/S guidance used for needle placement and U/S used to visualize spread of anesthetic Image printed/saved/archived: Yes Limited exam reveals no abnormal findings: Yes Vital signs VS: - 12/07/22 09:17 12/07/22 12:00 12/07/22 13:48 Temperature 98.2 F 97.3 F L Pulse Rate 92 H 81 Respiratory Rate 19 22 Blood Pressure 113/69 116/68 137/80 Pulse Oximetry 94 95 Oxygen Delivery Method Room Air Oxygen Flow Rate 0 See anesthetic record Oxygen Delivery Method Room Air Oxygen Flow Rate 0 Events Nerve Block Events: Procedure uneventful Complications/Explanation for PNB under General anesthetic: GA for pt with Alzheimers Dementia
--- NOTE | 2022-12-07 16:13 | P.PCN_ITS ---
Peripheral Nerve Block Note Pre-Procedure Reason for block: Attending surgeon request/order for post-op pain management Pre-procedure checklist: Patient examined and chart reviewed, Risks, benefits, alternatives of block discussed, questions answered, Verification of anti- coagulation status, Site confirmed, Timeout performed and Standard ASA monitors applied Consent obtained from: Caregiver Procedure Date of procedure: 12/07/22 Start Time: 13:35 End Time: 15:50 Performed by: Matty Camargo Sedation - enter dose in comment field: Other (include mg/mcg) (GA) Location: Intra-Op Position: Supine Laterality: Right (LATERAL POPLITEAL SCIATIC N)) Sterile Technique: Sterile barrier maintained, Sterile gloves, Mask, U/S probe cover and Chloraprep Equipment Single injection - Needle brand, gauge, length: Pajunk, 21g, 100mm Medications Medications - enter concentration (%) & mL in comment field: Ropivacaine (0.5% 10mL) and Lidocaine (1.5% 5mL) Incremental aspiration prior to injection: Yes Ultrasound Reason for Ultrasound: U/S guidance used for needle placement and U/S used to visualize spread of anesthetic Image printed/saved/archived: Yes Limited exam reveals no abnormal findings: Yes Vital signs VS: - 12/07/22 09:17 12/07/22 12:00 12/07/22 13:48 Temperature 98.2 F 97.3 F L Pulse Rate 92 H 81 Respiratory Rate 19 22 Blood Pressure 113/69 116/68 137/80 Pulse Oximetry 94 95 Oxygen Delivery Method Room Air Oxygen Flow Rate 0 Oxygen Delivery Method Room Air Oxygen Flow Rate 0 See anesthetic record Events Nerve Block Events: Procedure uneventful Complications/Explanation for PNB under General anesthetic: GA for pt with Alzheimer Dementia
--- NOTE | 2022-12-07 16:24 | SUR.OPER ---
Supine on padded OR bed, head on pillow, arms secured on padded arm boards at <90 degrees abduction, legs uncrossed, safety belt at ABDOMEN, tape over blanket over lower LEFT leg. BLANKET PLACED UNDER RIGHT FLANK BUMP SUPPORT
[2022-12-07] MEDS: ACETAMINOPHEN IV 1,000 MG/100 ML VIAL 400 MG IV (16:27)
[2022-12-07] MEDS: BUPIVACAINE 0.5% (PF) 30 ML, EPINEPHrine 0.15 MG INJ (19:47)
--- NOTE | 2022-12-07 19:49 | P.OP_ITS ---
Operative Date/Time/Diagnoses Date of procedure: 12/07/22 Time of procedure: 16:30 Pre-op diagnosis: 1. Right ankle bimalleolar fracture 2. Right ankle syndesmosis disruption 3. Right patella fracture 4. Osteoporosis Post-op diagnosis: same Procedure & Clinicians Procedure: 1. Open reduction internal fixation trimalleolar ankle fracture right CPT code 88636 2. Open reduction internal fixation syndesmosis right ankle CPT code 13635 3. Open reduction internal fixation right patella fracture CPT code 67656 modifier 59 for separate site separate incision Same procedure as scheduled: Yes Indications: Patient is a 77-year-old female with dementia that tripped over a garden hose at home she fell but twisted her ankle and fell on her knee. She sustained a fracture dislocation of her ankle and a displaced transverse patella fracture. These were ipsilateral injuries at separate sites. She underwent a closed reduction of her ankle in the ER and was admitted for her widely displaced patella fracture and disruption of extensor mechanism and requirements for residential. She typically lives at home with her who is her only help. She takes Pradaxa last dose was in the evening of 12/05/2022. She was indicated for ORIF of her ankle fracture unstable pattern and ORIF of her patella with her disrupted extensor mechanism. We discussed the goals of treatment were to establish extremities that could bear weight and facilitate rehab. The risks and benefits of the procedure have been discussed with the patient and given the opportunity to ask questions. The risks of surgery include but are not limited to infection, malunion, nonunion, persistence of pain, damage to nerves and blood vessels, posttraumatic arthritis, DVT, PE, cardiopulmonary complications and . The patient and her who is her POA expressed a thorough understanding of the risks and benefits of surgery and has elected to proceed. Consent was signed. Surgeon: Reina Richards Click Yes if Unassisted: Yes Anesthesia Type: General, Peripheral nerve block and Local Operative Notes Findings: Right ankle: Bimalleolar ankle fracture with osteoporotic fracture and separate isaias fiibula fragment representing anterior syndesmosis disruption Due to the patient's poor bone quality a standard medial malleolar fixation with screws was not sufficient and requires the use of a medial hook plate. Additionally a locking plate was used laterally due to the profound osteoporotic bone. There was a syndesmosis disruption. This was stabilized with 2 of the 4.7 osteopenia screws from the [employer] Ev[employer] set. Right patella fracture this was a complete transverse patella fracture with disruption of the medial and lateral retinaculum. Hematoma was evacuated and the fracture was reduced and held with a reduction clamp. The cartilage surface was able to be palpated through the retinacular tears and was smooth once the fracture was reduced. This was then pinned and overdrilled for 2 cannulated screws and through these a 2 mm suture tape was threaded in a cerclage fashion and used to complete a low profile patella ORIF with suture tape cerclage. There was no gapping after repair restoring the extensor mechanism. Closure Type: primary Specimen(s): none sent Prosthetic devices, grafts, tissues, transplants, or devices: Carbajal [employer] Nephew evos 7 hole lateral locking distal fibula plate and screws evos 5 hole medial hook plate for medial malleolus 2 x 4.7 osteopenia screws for syndesmotic ORIF 2x4.0 cannulated screws 34 mm and 32 mm and 2 mm SutureTape for patella ORIF with cerclage Estimated Blood Loss (mL): 50 Blood products transfused: none Tourniquet time (min): 110 Procedure in detail: Patient was seen in the preoperative area the site of surgery was marked informed consent confirmed. The patient was brought to the operating room. Postoperative blocks were placed by the anesthesia team for postoperative pain control. Patient was positioned supine on operative table general anesthesia was administered. The right lower extremity was prepped and draped in the standard sterile fashion. A nonsterile thigh tourniquet was placed. An SCD was placed on the contralateral lower extremity. An ipsilateral thigh a bump was placed. Formal time-out procedure was performed confirming the patient's side and site of surgery administration of appropriate preoperative antibiotics. All were in agreement. Open reduction internal fixation trimalleolar ankle fracture: We started with the ankle surgery procedure. Attention was turned to the right ankle the Esmarch was used for exsanguination the tourniquet raised on the thigh to 250 mmHg. Incision was made along the posterior fibula carefully through the subcutaneous tissues and down to the level of the bone. The distal fibula fracture was encountered. The bone was noted to be profoundly osteo porotic. There was some comminution as well as an anterior wedge staff fragment and d isrupted anterior syndesmosis. The fibula was carefully brought back out to length and clamped in place and then pinned with a K-wire as the clamps had to be very carefully used due to the soft bone. Due to the soft bone a lateral locking plate was selected for rigidity and locking fixation options. This was fit to the bone and pinned in place with K-wires. The reduction was checked on intraoperative C-arm. Next distal 2.7 locking screws were placed and proximally nonlocking and locking 3.5 screws were placed in the shaft. Attention was turned medially to the medial malleolus fracture. Separate incision was made medially for this taken down through the skin subcutaneous tissue. There was periosteum folded into the displaced fracture site. This was removed and hematoma was evacuated. Partially visualized talar dome was intact. The posterior tibialis tendon was exposed at the posterior aspect of the medial malleolus where there was some comminution that was debrided. The posterior tibialis tendon was intact. This point the medial malleolus was reduced and held with a clamp and then with K-wires. Two 4.0 cannulated screws were placed but as these were being tightened the osteoporotic fragment rotated and malaise reduced so the screws were removed and readjusted this did obtain anatomic alignment but due to profound osteoporosis of the bone once the clamp was removed and the ankle taken through range of motion the medial malleolus comminuted and lost fixation. At this point the screws were removed and due to the comminuted soft osteoporotic nature of the bone a medial hook plate was opened and placed obtaining a good reduction. This was secured proximally and distally. With 3.5 nonlocking and locking screws. And was stable to range of motion and stress testing. Syndesmosis ORIF: The syndesmosis was noted to be unstable this was clamped in position and FiberWire was used to over-sew the Isaias fragment back into the fibular periosteum with the FiberWire taken through a few empty holes in the distal fibular plate. Next syndesmosis was pinned and 2 4.7 mm osteopenia syndesmotic screws were placed once this was completed the syndesmosis was retested and was stable without any evidence of opening of the mortise was symmetric. Once ankle fixation was completed the tourniquet was released and hemostasis achieved. The ankle wounds were closed with 2-0 Vicryl 4-0 Monocryl and 3-0 nylon while there was a tourniquet break. Once this was completed attention was then turned to the knee. Patella ORIF: Separate anatomic site at the right knee was then addressed. The Esmarch was used for exsanguination the tourniquet raised on the thigh to 250 mmHg. Midline incision over the gross patellar rupture was completed taken down through the skin subcutaneous tissue. Once this encountered the large displaced transverse patella fracture the hematoma was evacuated and the arthrotomy cleaned with saline. Fracture hematoma was removed. And the fracture edges of the proximal and distal patella fragments debrided. These were then reduced and held with a large reduction clamp and then 2 K-wires were placed to hold reduction. Reduction was confirmed through palpation through the retinacular tears. This was checked on AP and lateral intraoperative fluoroscopy imaging once this was completed the wires were measured and then brought out proximally through the quad and clamped with needle holders. These were then over-drilled for a 4.0 screw. The 4.0 cannulated screws 32 mm and 34 mm were placed next a use and suture Passer loop was used to pass through a Fadi needle and pull a suture tape into the Fadi needle the Fadi needle was then passed through the cannulated screws and a cerclage fashion pulling the suture tape through the 4-0 cannulated screws. The needle was then removed. Next the suture tape cerclage was tightened down and tied. This achieved excellent fixation and anatomic reduction. Clamps were removed. There were complete medial and lateral retinacular tears these were repaired with 0 Vicryl suture and the knot for the cerclage was oversewn with 0 Vicryl to reduce prominence. The knee was taken through range of motion and there was no gapping of the patella ORIF. Once this completed tourniquet was released hemostasis was achieved. The wounds were closed with 2-0 Vicryl 4-0 Monocryl and joao. An Aquacel dressing was placed. Attention was returned to the ankle local anesthetic was administered for postoperative pain control and a dressing was placed with Xeroform gauze Webril and a posterior and U splint. A knee immobilizer was finally placed onto the knee. The drapes removed the patient was woken from anesthesia and taken to the recovery unit in good condition. There no immediate complications for this procedure. All counts were correct. Complications: none Post-operative Condition: stable Disposition: PACU Plan for aftercare: Weightbear as tolerated in splint and knee immobilizer. Follow-up in Orthopedic Clinic in 2 weeks patient will be changed from splint to a boot and at that point we will initiate some motion through the knee. Sutures remain in place a minimum of 2 weeks but may require more time if there is substantial swelling. Elevate above the heart level as much as possible to help with swelling. Keep splint clean dry and intact. Anticipate requirement for residential discharge based on this patient's mobility difficulties dementia and care needs and current resources. May restart home anticoagulation tomorrow evening. Recommend calcium and vitamin-D for bone health. Recommend at least 1000 mg of calcium daily and 1-2000 units of vitamin-D daily
[2022-12-08] MEDS: CEFAZOLIN 2 GM/100 ML PREMIX 100 ML IV ×2 (00:37→08:06)
[2022-12-08] MEDS: OXYCODONE IR 10 MG TABLET PO ×4 (05:22→16:16)
[2022-12-08 05:57] LABS: Hematocrit 29.4 % (36-46); Hemoglobin 10.2 g/dL (12.0-16.0); Mean Corpuscular HGB Conc 34.6 % (30-36); Mean Corpuscular Hemoglobin 30.2 PG (26-34); Mean Corpuscular Volume 87.3 fL (80-100); Platelet Count 106 X10^3/uL (150-400); Red Blood Cell Count 3.37 X10^6/uL (4.0-5.2); Red Cell Distribution Width 18.7 % (11.6-14.8); White Blood Cell Count 4.9 X10^3/uL (4.5-11.0)
[2022-12-08 06:00] VITALS: BP 127/81; PULSE 98; RESP 17; TEMP 36.6; O2SAT 96
--- NOTE | 2022-12-08 07:59 | PM.PN.1 ---
Subjective Subjective Interval history: Feeling better than prior to surgery. Pain is less. Is comfortable with current pain management and surgical stabilization of the right patellar fracture and right ankle fracture. No new complaints. Exam Vital Signs (past 8 hours): - 12/08/22 06:00 Temperature 97.8 F Pulse Rate 98 H Respiratory Rate 17 Blood Pressure 127/81 Pulse Oximetry 96 Oxygen Flow Rate 0 Oxygen Delivery Method Room Air Oxygen Flow Rate 0 Narrative Exam Narrative: GEN: Patient appears in no acute medical distress. HEAD:? Normocephalic. EYES: PERRLA, EOMI ENT: External inspection normal, trachea is midline, RESP: Chest is nontender and has symmetric movement, no wheezes or crackles. CVS: Heart sounds are normal, no murmur noted, No JVD. ABD/GI: Nontender, soft, normal bowel sounds NEURO: Oriented AOx3, neuro is grossly intact, sensation and motor is normal, has dementia. PSYCH: Normal mood and affect EXT:? Right knee and right ankle are dressed postoperatively. With leg immobilizer in place. Objective Labs 12/08/22 05:10 12/07/22 05:00 Labs: Laboratory Results - last 24 hr 12/07/22 12/08/22 05:00 05:10 WBC 4.9 RBC 3.37 L Hgb 10.2 L Hct 29.4 L MCV 87.3 MCH 30.2 MCHC 34.6 RDW 18.7 H Plt Count 106 L Lipase 169 D PFSH Medical History Chicken pox Chronic anticoagulation Chronic atrial fibrillation Dementia Diarrhea Do not resuscitate Essential hypertension GERD without esophagitis GI bleed Hyperlipidemia Hypertension Iron deficiency anemia Measles Migraines Mild cognitive disorder Mixed hyperlipidemia Osteopenia Rectal adenocarcinoma Wears glasses Surgical History Anesthesia History of colonoscopy History of hysterectomy History of partial colectomy Status post colostomy takedown Family History Mother Stroke History of heart disease Hypertension Hyperlipidemia Father Parkinson's disease (tremor, stiffness, slow motion, unstable posture) History of heart disease Hypertension Hyperlipidemia Grandfather History of heart disease Grandfather Cancer Social History marital status: details: (Berto), no children household members: spouse Smoking Status: Never smoker alcohol intake: former Assessment & Plan Assessment & Plan narrative: 1. Ground level fall with tripping on hose at home. 2. Right patellar transfer fracture is distracted.? Plan for open reduction internal fixation has been completed. 3. Right right bimalleolar ankle fracture with lateral subluxation.? Plan for open reduction internal fixation has been completed. 4. Alzheimer's.? is often present to help with any of recollection. 5. Atrial fibrillation on rivaroxaban.? Rivaroxaban was held for planned surgery. Restart today. 6. Hypertension.? Currently postoperatively, the patient has been not placed on her regular medication. Blood pressure has been stable. Continue to evaluate as to when regular medication should be reinitiated. 7. Hyperlipidemia.? Maintain patient's regular medication. 8. Colorectal cancer.? No active treatment during this hospital stay. 9. Abrasion right brow.? Healing well. CT of the head shows no acute findings.? No acute treatment. 10. Postoperative hemoglobin stable at 10.2. 11. Continue with postoperative care including physical therapy to help to determine place of discharge. Code status: DNR Surrogate decision maker: Berto Rm DVT prophylaxis :? Held due to surgery today Quality VTE Deep Vein Thrombosis/Pulmonary Embolism Present on Admission: No
[2022-12-08] MEDS: DOCUSATE 100 MG CAPSULE PO ×2 (08:07→20:29)
[2022-12-08] MEDS: ACETAMINOPHEN 325 MG TABLET 650 MG PO ×3 (08:07→23:05)
[2022-12-08 08:17] VITALS: BP 111/58; PULSE 84; RESP 18; TEMP 36.8; O2SAT 96
[2022-12-08] MEDS: HYDROMORPHONE 1 MG INJ 0.2 MG IV (08:39)
[2022-12-08] MEDS: MAGNESIUM OXIDE 400 MG TABLET PO (11:11)
[2022-12-08 11:12] VITALS: BP 111/58; PULSE 84
[2022-12-08] MEDS: FERROUS SULFATE 325 MG TABLET PO (11:12)
[2022-12-08] MEDS: CHOLECALCIFEROL (VITAMIN D3) 1,000 UNIT TABLET 2000 UNIT PO (11:12)
[2022-12-08] MEDS: LOSARTAN 25 MG TABLET PO (11:12)
[2022-12-08] MEDS: ATORVASTATIN 20 MG TABLET 10 MG PO (11:12)
--- NOTE | 2022-12-08 13:36 | P.DS_ITS ---
History of Present Illness History of Present Illness Date Patient Seen: 12/08/22 Chief complaint: right ankle injury/rt eye Discharge Providers Provider Date of admission: 12/06/22 15:05 Primary care physician: Maninder Stout MD Consults: 12/06/22 16:20 Consult to Physician Routine Comment: Consulting Provider: Reina Richards Reason for consultation: Right patellar fracture right ankle fracture Has provider been notified: Yes 12/07/22 20:21 Consult to Discharge Planning Routine Comment: Consult to Physical Therapy Evaluate & Treat Comment: wbat in KI and splint Physician Instructions: Evaluate and Treat Discharge provider: Evi Valdes PA-C Exam Vital Signs (past 8 hours): - 12/08/22 06:00 12/08/22 08:17 12/08/22 11:12 Temperature 97.8 F 98.2 F Pulse Rate 98 H 84 84 Respiratory Rate 17 18 Blood Pressure 127/81 111/58 L 111/58 L Pulse Oximetry 96 96 Oxygen Flow Rate 0 0 Oxygen Delivery Method Room Air Oxygen Flow Rate 0 Objective Labs 12/08/22 05:10 12/07/22 05:00 Labs: Laboratory Results - last 24 hr 12/08/22 05:10 WBC 4.9 RBC 3.37 L Hgb 10.2 L Hct 29.4 L MCV 87.3 MCH 30.2 MCHC 34.6 RDW 18.7 H Plt Count 106 L PFSH Medical History Chicken pox Chronic anticoagulation Chronic atrial fibrillation Dementia Diarrhea Do not resuscitate Essential hypertension GERD without esophagitis GI bleed Hyperlipidemia Hypertension Iron deficiency anemia Measles Migraines Mild cognitive disorder Mixed hyperlipidemia Osteopenia Rectal adenocarcinoma Wears glasses Surgical History Anesthesia History of colonoscopy History of hysterectomy History of partial colectomy Status post colostomy takedown Family History Mother Stroke History of heart disease Hypertension Hyperlipidemia Father Parkinson's disease (tremor, stiffness, slow motion, u nstable posture) History of heart disease Hypertension Hyperlipidemia Grandfather History of heart disease Grandfather Cancer Social History marital status: details: (Berto), no children household members: spouse Smoking Status: Never smoker alcohol intake: former Discharge Plan Discharge orders & Medications Prescriptions: No Action metoprolol succinate 100 mg tablet extended release 24 hr 100 mg PO QAM magnesium 250 mg tablet 250 mg PO QPM cholecalciferol (vitamin D3) 50 mcg (2,000 unit) capsule 50 mcg PO QAM ferrous sulfate 325 mg (65 mg iron) tablet 325 mg PO QAM losartan 25 mg tablet 25 mg PO QPM rosuvastatin 5 mg tablet 5 mg PO QPM rivaroxaban 10 mg Tablet 10 mg PO QPM Rx Instructions: for 35 days donepezil 10 mg tablet 10 mg PO QAM acetaminophen [Tylenol] 325 mg capsule 650 mg PO QID PRN (Reason: pain) Qty: 60 0RF Follow up/Referrals: Maninder Stout MD [Primary Care Provider] - Discharge Data Primary Care Provider: Maninder Stout V Quality VTE Deep Vein Thrombosis/Pulmonary Embolism Present on Admission: No
--- NOTE | 2022-12-08 13:39 | PM.PNPO.1 ---
Subjective Subjective Date Patient Seen: 12/08/22 Interval history: Patient is resting comfortably in bed this morning at bedside. Patient states she is doing well and pain is adequately controlled with medication. She is understanding that ambulation will not be easy given her multiple injuries. She is looking forward to physical therapy to attempt moving to edge of bed, sit to stand, and ambulating as able with DME. Patient has 5 stairs to enter the home, lives on single level. Patient and prefer that she be discharged to home - will have to discuss this further pending PT evaluation. Exam Vital Signs (past 8 hours): - 12/08/22 06:00 12/08/22 08:17 12/08/22 11:12 Temperature 97.8 F 98.2 F Pulse Rate 98 H 84 84 Respiratory Rate 17 18 Blood Pressure 127/81 111/58 L 111/58 L Pulse Oximetry 96 96 Oxygen Flow Rate 0 0 Oxygen Delivery Method Room Air Oxygen Flow Rate 0 Narrative Exam Narrative: Pleasant 77-year-old female. Awake, alert, oriented to person, place and situation at this time. Sensation intact to right lower extremity, brisk distal capillary refill. Ankle immobilized in splint, wrapped in Dario bandage. Knee Aquacel bandage clean, dry, and intact. Knee wrapped in Dario bandage, knee immobilizer. Objective Labs 12/08/22 05:10 12/07/22 05:00 Labs: Laboratory Results - last 24 hr 12/08/22 05:10 WBC 4.9 RBC 3.37 L Hgb 10.2 L Hct 29.4 L MCV 87.3 MCH 30.2 MCHC 34.6 RDW 18.7 H Plt Count 106 L [facility] Medical History Chicken pox Chronic anticoagulation Chronic atrial fibrillation Dementia Diarrhea Do not resuscitate Essential hypertension GERD without esophagitis GI bleed Hyperlipidemia Hypertension Iron deficiency anemia Measles Migraines Mild cognitive disorder Mixed hyperlipidemia Osteopenia Rectal adenocarcinoma Wears glasses Surgical History Anesthesia History of colonoscopy History of hysterectomy History of partial colectomy Status post colostomy takedown Family History Mother Stroke History of heart disease Hypertension Hyperlipidemia Father Parkinson's disease (tremor, stiffness, slow motion, unstable posture) History of heart disease Hypertension Hyperlipidemia Grandfather History of heart disease Grandfather Cancer Social History marital status: details: (Berto), no children household members: spouse Smoking Status: Never smoker alcohol intake: former Assessment & Plan Post-op Postoperative Procedures: Procedures Operation Date: 12/07/22 15:30 Actual Procedure Side Surgeon p ORIF Ankle Fracture Reina Richards MD s ORIF Patella Fracture Reina Richards MD Postoperative day: 1 Postoperative status: doing well Postoperative status narrative: Patient is progressing as expected following ORIF bimalleolar right ankle fracture, ORIF right patella fracture. Postoperative plan: routine post-op care and see orders Postoperative plan narrative: Weight-bear as tolerated in splint and knee immobilizer. Plan to restart home anticoagulation this evening. Continue multimodal pain regimen as needed. Follow-up in Orthopedic Clinic in 2 weeks patient will be changed from splint to a boot and at that point we will initiate some motion through the knee. Sutures remain in place a minimum of 2 weeks but may require more time if there is substantial swelling. Elevate above the heart level as much as possible to help with swelling. Keep splint clean dry and intact. Anticipate requirement for [facility] discharge based on this patient's mobility difficulties dementia and care needs and current resources. Recommend calcium and vitamin-D for bone health. Recommend at least 1000 mg of calcium daily and 1-2000 units of vitamin-D daily. Quality VTE Deep Vein Thrombosis/Pulmonary Embolism Present on Admission: No
--- NOTE | 2022-12-08 14:02 | CM.DPC ---
Addendum entered by RAMON Singh 12/08/22 15:56: ADD: Per [facility], they can accept pt if MD documents that Oncologist in agreement that pt's Onc tx can be on-hold during SNF stay and to resume after SNF. [facility] can accept two admissions tomorrow and two admissions Thu. BF Addendum entered by RAMON Singh 12/08/22 14:11: ADD: Spouse also confirmed that pt sees Onc Dr. Spring for infusions at [facility] and has an upcoming infusion in about a week but spouse already has a call into her Oncologist to likely put this infusion on hold anyways and SW discussed if pt goes to SNF then Oncology tx will need to be held anyways until after SNF and spouse and pt agreeable with this. BF Original Note: DCP SNF Planning Per Ortho, pt tolerated procedure well and cleared for d/c from Ortho stand point when Hospitalist determines pt medically is stable. PT ordered and pending as pt was hesitant to get up initially. SW met bedside with pt and spouse and both very pleasant and appreciative. Spouse and pt state that PT was able to get pt standing and ambulated in the room and just a little outside the room and spouse feels SNF needed before home. SW provided the SNF Choice list and discussed Medicare coverage of SNF and also HH services and frequency and pt and spouse state preference [facility] be [facility] due to location as they live in [place] and have a pet at home. SW discussed other [facility] SNFs and pt and spouse agreeable with referral to [facility] and [facility] to start ([facility] currently full). CRISTINA Bright kindly made referral to [facility] and [facility] and SW completed PASRR. Pt able to participate in discussion and appropriate and no behaviors. Plan: SW to follow for SNF reviews of 1) [facility] and then [facility] towards likely need of SNF at d/c before home with spouse and HH. RAMON Singh
--- NOTE | 2022-12-08 15:16 | PT.IIE ---
Current Diagnoses Displaced transverse fracture of right patella, initial encounter for closed fracture (12/06/22) Other fracture of right lower leg, initial encounter for closed fracture (12/06/22) Surgery Performed Operation Date: 12/07/22 15:30 Actual Procedures p ORIF Ankle Fracture - Reina Richards MD s ORIF Patella Fracture - Reina Richards MD Surgical History (Last Reviewed 12/08/22 @ 13:44 by Evi Valdes PA-C) Anesthesia History of colonoscopy History of hysterectomy History of partial colectomy Status post colostomy takedown Medical History (Last Reviewed 12/08/22 @ 13:44 by Evi Valdes PA-C) Chicken pox Chronic anticoagulation Chronic atrial fibrillation Dementia Diarrhea Do not resuscitate Essential hypertension GERD without esophagitis GI bleed Hyperlipidemia Hypertension Iron deficiency anemia Measles Migraines Mild cognitive disorder Mixed hyperlipidemia Osteopenia Rectal adenocarcinoma Wears glasses Physical Therapy Inpatient Evaluation/Re-Eval M1 PT/OT-IP Prior Functional Status Start: 12/08/22 13:20 Freq: NEEDED Status: Active Protocol: Document 12/08/22 13:21 AMB (Rec: 12/08/22 13:54 AMB [id number]) Medical Review Prior Functional Status Medical History Reviewed Yes Mobility and Gait Pt relies on for majority of history. He reports she was independent with gait without AD, bathing, dressing. Social History Household Members spouse Living Arrangements House Number of Floors (Floors) Two Floors Number of Stairs To Enter/Railing? 2 stairs with railing; bedroom and bathroom on main level pt does not need to access second floor Home Environment Walk in Shower Employment Status Retired Additional Social History Comment Pt states he can get a walker, they have a wheelchair on loan from [employer] already M2 PT-IP Current Condition Start: 12/08/22 13:20 Freq: NEEDED Status: Active Protocol: Document 12/08/22 13:21 AMB (Rec: 12/08/22 13:54 AMB [id number]) Physical Therapy Current Condition Current Condition Evaluation Date 12/08/22 Treatment Diagnosis R ankle and patellar ORIFs s/p fall Onset Date 12/06/22 M3 PT-IP Subjective Start: 12/08/22 13:20 Freq: NEEDED Status: Active Protocol: Document 12/08/22 13:21 AMB (Rec: 12/08/22 13:54 AMB [id number]) Subjective Physical Therapy Visit Type Type Initial Evaluation Visit Start Time 12:45 Visit Stop Time 13:30 Total Visit Minutes 45 Physical Therapy Visit Comments Patient Comments Pt denies pain, just had pain medication, is in room and provides majority of history Therapy Pain Assessment Pain When Pain Assessed During Mobility Pain Present Pain Present Pain Reported M4 PT-IP Mobility and Gait Start: 12/08/22 13:20 Freq: NEEDED Status: Active Protocol: Document 12/08/22 13:21 AMB (Rec: 12/08/22 13:54 AMB [id number]) PT-Bed Mobility Assessment Rolling Type of Rolling Roll to Right Level of Assist Standby Assistance Supine to Sit Supine to Sit Minimal Assistance,1 Person Assistance,Head of Bed Elevated,Bedrails Sit to Supine Sit to Supine Minimal Assistance,1 Person Assistance,Head of Bed Elevated,Bedrails Scooting Scooting to Edge of Bed Standby Assistance Scooting Up and Down in Bed Standby Assistance PT-Transfer Assessment Sit to and From Stand Sit to and from Stand Contact Guard Assistance,1 Person Assistance,Use of Upper Extremities Equipment Transfer Assistive Device Gait Belt Transfers Transfer Destination Bed Transfer Technique Stand Step Pivot Transfer Ability Level of Assist Contact Guard Assistance Comments Mobility Comments Hannah needed Alo for R LE management for bed mobility. Max verbal cues for sit to stand with FWW for safety. Gait Assessment Gait Gait Assistance Required: Contact Guard Assist Distance (Feet) 10 Able to Maintain Weight Bearing Status Yes During Gait Assistive Devices Assistive Device Front Wheeled Walker Gait Deviations General Gait Pattern Antalgic,Decreased Stride Length,Decreased Feet Clearance Factors Limiting Gait Function Factors Limiting Gait Function Decreased Activity Tolerance, Decreased Strength,Pain,Poor Balance Comments Gait Comments Hannah has a hard splint wrapped in charissa wrap and a knee immobilizer on. She reported moderate pain with ambulation (none at baseline). Pt with heavy use of UEs on FWW, short step length, CGA for all times when she is standing. Stair Climbing Assessment Comments Stair Climbing Comments not eval'd due to weakness/ pain PT-Balance Assessment Sitting Balance and Reactions Static Sitting Balance Ability Good Dynamic Sitting Balance Ability Good Standing Balance and Reactions Static Standing Balance Ability Fair Dynamic Standing Balance Ability Fair M5 PT-IP Objective Assessments Start: 12/08/22 13:20 Freq: NEEDED Status: Active Protocol: Document 12/08/22 13:21 AMB (Rec: 12/08/22 13:54 AMB [id number]) Gross Range of Motion Upper Extremity ROM Assessment Within Functional Limits Lower Extremity ROM Impairments knee immobilizer and splint present Strength Upper Extremity Strength Assessment Within Functional Limits Comments Strength Comments pt able to wiggle toes on R. Good strength on L. M7 PT-IP Assessment and Plan Start: 12/08/22 13:20 Freq: NEEDED Status: Active Protocol: Document 12/08/22 13:21 AMB (Rec: 12/08/22 13:54 AMB [id number]) PT Summary Assessment and Plan Potential Rehabilitation Potential Good Status of Condition at Evaluation Stable Summary Impairments Pain,ROM,Strength,Balance,Bed Mobility,Transfers,Gait, Activity Tolerance Assessment Summary Hannah tripped over her garden hose and had R ankle and patellar ORIF surgery on 12/07. She is WBAT. She needed 1 person assist (Alo) for bed mobility with knee immobilizer and ankle splint present. She was able to move from sit to stand with CGA and heavy verbal cues, and ambulated 10 feet very slowly with FWW with CGA. She has had 2 falls including this one in the last 6 months per . Baseline was ambulating community distances without AD , pt does have dementia. Pt needs to ascend 1-2 steps to enter her home. Pt would benefit from SNF rehabilitation to strengthen and improve her gait, bed mobility, and stair tolerance, considering her pain, weakness and difficulty with gait currently. Goals Bed Mobility Goal Standby Assistance Transfer Goal Standby Assistance Gait Goal Contact Guard Assistance Gait Distance 50 Other Goals Stairs: ascend and descen 2 steps with 1 railing with Alo Days to Meet Goals 5 Frequency of Treatment Frequency Of Treatment Twice a Day Treatment Plan Physical Therapy Treatment Plan Bed Mobility Training,Transfer Training,Gait Training, Balance Retraining Precautions Brace Knee immobilizer, splint Weight Bearing Status Weight Bearing Status Weight Bear as Tolerated Recommendations To Nursing Amount of Assist Needed 1 Person Assist Discharge Recommendations PT Discharge Recommendations SNF Rehab Transportation Needs at Discharge Wheelchair/Cabulance
[2022-12-08] MEDS: RIVAROXABAN 10 MG TABLET PO (16:16)
[2022-12-08] MEDS: DONEPEZIL 5 MG TABLET 10 MG PO (20:29)
[2022-12-08 21:42] VITALS: BP 118/72; PULSE 104; RESP 16; TEMP 37.1; O2SAT 95
[2022-12-09 06:03] VITALS: BP 130/83; PULSE 108; RESP 16; TEMP 37.4; O2SAT 95
[2022-12-09] MEDS: ACETAMINOPHEN 325 MG TABLET 650 MG PO (08:33)
[2022-12-09] MEDS: DOCUSATE 100 MG CAPSULE PO (08:33)
[2022-12-09] MEDS: CALCIUM CARBONATE 500 MG TAB 1000 MG PO (08:34)
[2022-12-09] MEDS: ATORVASTATIN 20 MG TABLET 10 MG PO (08:34)
[2022-12-09] MEDS: CHOLECALCIFEROL (VITAMIN D3) 1,000 UNIT TABLET 2000 UNIT PO (08:34)
[2022-12-09] MEDS: FERROUS SULFATE 325 MG TABLET PO (08:34)
[2022-12-09] MEDS: MAGNESIUM OXIDE 400 MG TABLET PO (08:34)
[2022-12-09 08:35] VITALS: BP 130/83; PULSE 103; PULSE 108
[2022-12-09] MEDS: METOPROLOL ER 50 MG TABLET 100 MG PO (08:35)
[2022-12-09] MEDS: LOSARTAN 25 MG TABLET PO (08:35)
[2022-12-09 08:55] VITALS: BP 130/85; PULSE 75; RESP 16; TEMP 36.7; O2SAT 95
--- NOTE | 2022-12-09 09:25 | PT.IPTN ---
Current Diagnoses Displaced transverse fracture of right patella, initial encounter for closed fracture (12/06/22) Other fracture of right lower leg, initial encounter for closed fracture (12/06/22) Surgery Performed Operation Date: 12/07/22 15:30 Actual Procedures p ORIF Ankle Fracture - Reina Richards MD s ORIF Patella Fracture - Reina Richards MD Physical Therapy Treatment Note M2 PT-IP Current Condition Start: 12/08/22 13:20 Freq: NEEDED Status: Active Protocol: Document 12/08/22 13:21 AMB (Rec: 12/08/22 13:54 AMB [id number]) Physical Therapy Current Condition Current Condition Evaluation Date 12/08/22 Treatment Diagnosis R ankle and patellar ORIFs s/p fall Onset Date 12/06/22 M3 PT-IP Subjective Start: 12/08/22 13:20 Freq: NEEDED Status: Active Protocol: Document 12/09/22 09:46 TS (Rec: 12/09/22 10:01 TS [id number]) Subjective Physical Therapy Visit Type Type Treatment Note Visit Start Time 09:25 Visit Stop Time 09:40 Total Visit Minutes 15 Number of RUBBER COMPOUNDER MIXER Visits 1 Physical Therapy Visit Comments Patient Comments Pt found resting in bed, spouse in room, pt and spouse reports she is going to SNF this afternoon, agreeable to PT. Therapy Pain Assessment Pain When Pain Assessed During Mobility Pain Present Pain Present Pain Reported M4 PT-IP Mobility and Gait Start: 12/08/22 13:20 Freq: NEEDED Status: Active Protocol: Document 12/09/22 09:46 TS (Rec: 12/09/22 10:01 TS [id number]) PT-Bed Mobility Assessment Supine to Sit Supine to Sit Minimal Assistance,1 Person Assistance,Head of Bed Elevated,Bedrails Sit to Supine Sit to Supine Moderate Assistance,1 Person Assistance,Head of Bed Elevated,Bedrails Scooting Scooting to Edge of Bed Contact Guard Assistance PT-Transfer Assessment Sit to and From Stand Sit to and from Stand Minimal Assistance,1 Person Assistance,Use of Upper Extremities Comments Mobility Comments Supine to sit HOB elevated 40D Murphy for RLE and uprighting trunk. She scooted to EOB CGA with BUE support, pt denied any dizziness. Sit to stand Murphy with FWW, provided cues for weight forward. She ambulated in room ~20' CGA with antalgic gait, slow to weight bear on RLE, reports pain 4/10. Sit to supine into bed ModA for RLE, pr repositioned trunk with no assist. She was left in bed with call light nearby, tray table in place, spouse in room . Gait Assessment Gait Gait Assistance Required: Contact Guard Assist Distance (Feet) 20 Able to Maintain Weight Bearing Status Yes During Gait Assistive Devices Assistive Device Front Wheeled Walker Gait Deviations General Gait Pattern Antalgic,Decreased Stride Length,Decreased Feet Clearance Factors Limiting Gait Function Factors Limiting Gait Function Decreased Activity Tolerance, Decreased Strength,Pain,Poor Balance Comments Gait Comments Slow antalgic gait requiring extra time to weight bear on RLE, reported 4/10 pain. PT-Balance Assessment Sitting Balance and Reactions Static Sitting Balance Ability Good Dynamic Sitting Balance Ability Good Standing Balance and Reactions Static Standing Balance Ability Fair Dynamic Standing Balance Ability Fair M5 PT-IP Objective Assessments Start: 12/08/22 13:20 Freq: NEEDED Status: Active Protocol: Document 12/08/22 13:21 AMB (Rec: 12/08/22 13:54 AMB [id number]) Gross Range of Motion Upper Extremity ROM Assessment Within Functional Limits Lower Extremity ROM Impairments knee immobilizer and splint present Strength Upper Extremity Strength Assessment Within Functional Limits Comments Strength Comments pt able to wiggle toes on R. Good strength on L. M7 PT-IP Assessment and Plan Start: 12/08/22 13:20 Freq: NEEDED Status: Active Protocol: Document 12/09/22 09:46 TS (Rec: 12/09/22 10:01 TS [id number]) PT Summary Assessment and Plan Potential Rehabilitation Potential Good Summary Impairments Pain,ROM,Strength,Balance,Bed Mobility,Transfers,Gait, Activity Tolerance Progress Towards Goals Progressing Toward Goals Assessment Summary Pt is progressing well with her mobility. She is Murphy for RLE with sitting up to EOB. She performed sit to stand with Murphy for balance. She progressed her gait to ~20' CGA with FWW, has a slow antalgic gait requiring extra time to weight bear on RLE and UEs fatigue, pain reported 4/ 10 with gait. PT is recommending SNF to progress funcitonal mobility and activity tolerance. Goals Bed Mobility Goal Standby Assistance Transfer Goal Standby Assistance Gait Goal Contact Guard Assistance Gait Distance 50 Other Goals Stairs: ascend and descen 2 steps with 1 railing with Murphy Days to Meet Goals 5 Frequency of Treatment Frequency Of Treatment Twice a Day Treatment Plan Physical Therapy Treatment Plan Bed Mobility Training,Transfer Training,Gait Training, Balance Retraining Precautions Brace Knee immobilizer, splint Weight Bearing Status Weight Bearing Status Weight Bear as Tolerated Recommendations To Nursing Amount of Assist Needed 1 Person Assist Discharge Recommendations PT Discharge Recommendations SNF Rehab Transportation Needs at Discharge Wheelchair/Cabulance
--- NOTE | 2022-12-09 10:20 | P.DS_ITS ---
History of Present Illness History of Present Illness Chief complaint: right ankle injury/rt eye Narrative: Hannah Rm is a 77-year-old female with history of atrial fibrillation on rivaroxaban, history of colorectal cancer receiving infusions, hypertension dyslipidemia as well as Alzheimer's disease.? She presented with ground level fall where she tripped over a hose at home.? She did hit her has a small ab rasion on her right brow, no vision changes and denied headache neck pain or back pain.? No loss of consciousness reported.? No chest pain or shortness of breath.? No nausea or vomiting, no loss of bowel or bladder control, no issues with bowel movements or urination.? She complained of pain particularly in her right ankle and knee.? None in her hip.? She has pain with any sort of movement.? No numbness or tingling.? Patient does receive infusions for her colorectal cancer, takes medication for hypertension dyslipidemia and atrial fibrillation.? Denied cardiac stents or pacemaker.? Her primary care is Dr. Stout.? She follows with Dr. Tovar for Cardiology and her oncology is in [place].? She was accompanied by her on presentation. ? Patient stated that she ambulates without walker or assistance normally. X-rays in the ER indicate right transverse patellar fracture with distraction as well as right bimalleolar fracture with lateral subluxation. Has significant pain at fracture sites. Discharge Providers Provider Date of admission: 12/06/22 15:05 Discharge Date: 12/09/22 Primary care physician: Maninder Stout MD Consults: 12/06/22 16:20 Consult to Physician Routine Comment: Consulting Provider: Reina Richards Reason for consultation: Right patellar fracture right ankle fracture Has provider been notified: Yes 12/07/22 20:21 Consult to Discharge Planning Routine Comment: Consult to Physical Therapy Evaluate & Treat Comment: wbat in KI and splint Physician Instructions: Evaluate and Treat 12/09/22 08:01 Consult to Occupational Therapy Evaluate & Treat Comment: Physician Instructions: Evaluate and treat Discharge provider: Howard Lopes DO Summary Hospital Course Discharge Diagnosis: 1. Ground level fall with tripping on hose at home. 2. Right patellar fracture.? Plan for open reduction internal fixation has been completed. 3. Right right bimalleolar ankle fracture with lateral subluxation.? Open reduction internal fixation has been completed. 4. Alzheimer's.? is often present to help with any of recollection. 5. Atrial fibrillation on rivaroxaban.? Rivaroxaban was held for planned surgery then restarted. 6. Hypertension.? Currently postoperatively, the patient has been not placed on her regular medication.? Blood pressure has been stable.? Resumed on dc. 7. Hyperlipidemia.? Maintain patient's regular medication.? 8. Colorectal cancer.? No active treatment during this hospital stay. Per her oncology treatments will be on hold until after her SNF rehab stay. 9. Abrasion right brow.? Healing well.? CT of the head shows no acute findings.? No acute treatment. 10. Postoperative hemoglobin stable at 10.2. 11. Continue with postoperative care including physical therapy to help to determine place of discharge. Hospital Course: Admitted for R ankle and R patellar fracture after tripping over garden hose. Underwent surgical repair with ortho on 12/07. PT rec SNF after. Ugarte cath left in due to immobility. Home xarelto resumed after surgery. Started on calcium supplements along with her home vit D supp per ortho recs. Should f/u in ortho clinic in 2 weeks for suture removal. She will wear knee immobilizer and elevate LE. Time Spent with Patient Time spent: Greater than 30 minutes Exam Vital Signs (past 8 hours): - 12/09/22 06:03 12/09/22 08:35 12/09/22 08:35 Temperature 99.4 F Pulse Rate 108 H 108 H 103 H Respiratory Rate 16 Blood Pressure 130/83 130/83 130/83 Pulse Oximetry 95 Oxygen Flow Rate 0 12/09/22 08:55 Temperature 98.0 F Pulse Rate 75 Respiratory Rate 16 Blood Pressure 130/85 Pulse Oximetry 95 Oxygen Flow Rate Oxygen Delivery Method Room Air Oxygen Flow Rate 0 Narrative Exam Narrative: GEN: Patient appears in no acute medical distress. HEAD:? Normocephalic. EYES: PERRLA, EOMI ENT: External inspection normal, trachea is midline, RESP: Chest is nontender and has symmetric movement, no wheezes or crackles. CVS: Heart sounds are normal, no murmur noted, No JVD. ABD/GI: Nontender, soft, normal bowel sounds NEURO: Oriented AOx2, neuro is grossly intact, sensation and motor is normal, has dementia. PSYCH: Normal mood and affect EXT:? Right knee and right ankle are dressed postoperatively. With leg immobilizer in place. Objective Labs 12/08/22 05:10 12/07/22 05:00 [facility] Medical History Chicken pox Chronic anticoagulation Chronic atrial fibrillation Dementia Diarrhea Do not resuscitate Essential hypertension GERD without esophagitis GI bleed Hyperlipidemia Hypertension Iron deficiency anemia Measles Migraines Mild cognitive disorder Mixed hyperlipidemia Osteopenia Rectal adenocarcinoma Wears glasses Surgical History Anesthesia History of colonoscopy History of hysterectomy History of partial colectomy Status post colostomy takedown Family History Mother Stroke History of heart disease Hypertension Hyperlipidemia Father Parkinson's disease (tremor, stiffness, slow motion, unstable posture) History of heart disease Hypertension Hyperlipidemia Grandfather History of heart disease Grandfather Cancer Social History marital status: details: (Berto), no children household members: spouse Smoking Status: Never smoker alcohol intake: former Discharge Plan Discharge Plan Patient Disposition: SNF Transfer to: [facility] Discharge orders & Medications Prescriptions: New calcium carbonate 400 mg calcium (1,000 mg) tablet,chewable 1,000 mg PO DAILY 30 Days Qty: 30 0RF oxycodone 5 mg Tablet 5 mg PO Q3HR PRN (Reason: Pain, Mild (1-3)) 30 Days Qty: 30 0RF Continued metoprolol succinate 100 mg tablet extended release 24 hr 100 mg PO QAM magnesium 250 mg tablet 250 mg PO QPM cholecalciferol (vitamin D3) 50 mcg (2,000 unit) capsule 50 mcg PO QAM ferrous sulfate 325 mg (65 mg iron) tablet 325 mg PO QAM losartan 25 mg tablet 25 mg PO QPM rosuvastatin 5 mg tablet 5 mg PO QPM rivaroxaban 10 mg Tablet 10 mg PO QPM Rx Instructions: for 35 days donepezil 10 mg tablet 10 mg PO QAM acetaminophen [Tylenol] 325 mg capsule 650 mg PO QID PRN (Reason: pain) Qty: 60 0RF Follow up/Referrals: Maninder Stout MD [Primary Care Provider] - 2 Weeks Diet/Activity/Treatments Activity: Follow-up in Orthopedic Clinic in 2 weeks patient will be changed from splint to a boot and at that point we will initiate some motion through the knee. Sutures remain in place a minimum of 2 weeks but may require more time if there is substantial swelling. Elevate above the heart level as much as p ossible to help with swelling. Keep splint clean dry and intact. Visit Report/Discharge Packet Stand Alone Forms: Patient Portal/API Discharge Data Primary Care Provider: Maninder Stout V Quality VTE Deep Vein Thrombosis/Pulmonary Embolism Present on Admission: No
--- NOTE | 2022-12-09 10:40 | OT.IPNOTE ---
Pt going to skilled rehab, defer to skilled OT for OT goals.
--- NOTE | 2022-12-09 11:19 | PC.NURSE ---
Report given to Evi at [facility]. IV removed. All questions answered. pt wheeled out via w/c with and facility designee.
== END 2022-12-09 11:22 | DRG 493 ==
LOC: ED 15:04 → AC 15:09
PROVIDERS: Orthopaedic Surgery Foot and Ankle Surgery; Admitting Provider Neuromusculoskeletal Medicine, Sports Medicine; Emergency Provider Emergency Medicine; PCP Internal Medicine; Referring Provider Emergency Medicine; Visit Provider Neuromusculoskeletal Medicine, Sports Medicine
PROC: 0SSF04Z Reposition Right Ankle Joint with Internal Fixation Device, Open Approach (ICD-10-PCS; principal; 2022-12-07 15:30)
PROC: 0QSD04Z Reposition Right Patella with Internal Fixation Device, Open Approach (ICD-10-PCS; CPT 27524; 2022-12-07 15:30)
DX: S82.031A Displaced transverse fracture of right patella, initial encounter for closed fracture (principal); I48.20 Chronic atrial fibrillation, unspecified; M80.071A Age-related osteoporosis with current pathological fracture, right ankle and foot, initial encounter for fracture; S82.841A Displaced bimalleolar fracture of right lower leg, initial encounter for closed fracture; S00.211A Abrasion of right eyelid and periocular area, initial encounter; G30.9 Alzheimer's disease, unspecified; F02.80 Dementia in other diseases classified elsewhere, unspecified severity, without behavioral disturbance, psychotic disturbance, mood disturbance, and anxiety; I10 Essential (primary) hypertension; E78.5 Hyperlipidemia, unspecified; W01.0XXA Fall on same level from slipping, tripping and stumbling without subsequent striking against object, initial encounter; Z79.01 Long term (current) use of anticoagulants
CPT/HCPCS: 36415; 70450; 71045; 72125; 73560; 73590; 73600; 73610; 76000; 80048; 80053; 83690; 85025; 85027; 85610; 93005; 96374; 96376; 97161; 97530; 99285; J0131; J0171; J0690; J1100; J1170; J1630; J2270; J2405; J2704; J3010

== ENCOUNTER 2022-12-24 10:34 | Emergency (ER) | payer MEDICARE, SELFPAY ==
[2022-12-06 15:54] VITALS: BMI 25.2
[2022-12-24] VITALS (25 sets, daily range): BP systolic 87–129; BP diastolic 63–85; PULSE 74–130; RESP 12–40; TEMP 36.9; O2SAT 96–99; BMI 25.8
--- NOTE | 2022-12-24 10:58 | DI.CT.S_ITS ---
PROCEDURE: CT ANGIO CHEST PE PROTOCOL INDICATIONS: Dyspnea TECHNIQUE: After the administration of intravenous contrast, 2 mm thick sections acquired from the pulmonary apices to the posterior costophrenic angles. 3-dimensional maximum intensity projection (MIP) coronal and sagittal reformats were then acquired through the thorax. For radiation dose reduction, the following was used: automated exposure control, adjustment of mA and/or kV according to patient size. COMPARISON: None. FINDINGS: Image quality: Excellent. Pulmonary arteries: Pulmonary arteries are normal in size, and demonstrate no intraluminal filling defects to suggest central pulmonary embolism. Lungs and pleura: Lungs are clear. No pleural effusions or pneumothorax. Central and peripheral airways are patent. Mediastinum: Four-chamber cardiomegaly. No pericardial effusion. LAD calcifications. No mediastinal or hilar adenopathy. Mild aneurysmal dilatation of the ascending aorta, measuring 4.1 cm. Esophagus is normal in caliber, without hiatal hernia. Bones and chest wall: No suspicious bony lesions. Ribs and thoracic spine appear intact throughout. Thyroid gland is unremarkable. No axillary or supraclavicular adenopathy. Abdomen: Visualized upper abdominal solid organs appear normal in the early arterial phase of enhancement. IMPRESSION: 1. No acute pulmonary emboli. 2. No acute pulmonary process. 3. Four-chamber cardiomegaly with LAD calcifications. 4. Mild aneurysmal dilatation of the ascending aorta, measuring 4.1 cm. Dictated by: Bradley Foote M.D. on 12/24/2022 at 12:17 Approved by: Bradley Foote M.D. on 12/24/2022 at 12:20
--- NOTE | 2022-12-24 11:05 | ED_ITS ---
HPI - SOB/Dyspnea <Lenard Neely MD - Last Filed: 01/19/23 21:51> General Chief Complaint: Shortness of Breath/Dyspnea Stated Complaint: blood clots Time Seen by Provider: 12/24/22 10:57 History of Present Illness HPI Narrative: Patient brought here by from primary care office, Dr. Stout, I spoke with him as well before patient was sent over here, patient here for evaluation for shortness of breath, possible pulmonary embolism. Patient has history of atrial fibrillation and is on Xarelto. Patient states it does not feel like her atrial fibrillation she is chronically in it. Denies any chest pain. Patient admitted here 2 weeks ago for surgery secondary to right knee and ankle fracture. Patient has been on Xarelto since then. Patient was transferred to rehab facility and was discharged home 3 days ago. Today in the primary care office was follow-up. She was very dyspneic, has been for the past 3 days. No previous history of lung disease. Does not smoke. No COPD. No asthma. Patient speaking near full sentences. However when speaking seems to require extra breath. Related Data Home Medications Medication Instructions Recorded Confirmed rosuvastatin 5 mg tablet 5 mg PO QPM 02/06/21 01/01/23 cholecalciferol (vitamin D3) 50 50 mcg PO QAM 12/16/21 01/01/23 mcg (2,000 unit) capsule magnesium 250 mg tablet 250 mg PO QPM 12/16/21 01/01/23 metoprolol succinate 100 mg 100 mg PO QAM 12/16/21 01/01/23 tablet,extended release 24 hr ferrous sulfate 325 mg (65 mg 325 mg PO QAM 06/30/22 01/01/23 iron) tablet losartan 25 mg tablet 25 mg PO QPM 07/16/22 01/01/23 donepezil 10 mg tablet 10 mg PO QAM 12/06/22 01/01/23 rivaroxaban 10 mg tablet 10 mg PO QPM 12/06/22 01/01/23 Previous Rx's Medication Instructions Recorded acetaminophen 325 mg capsule 650 mg PO QID PRN pain #60 caps 09/05/22 (Tylenol) furosemide 20 mg tablet 20 mg PO DAILY #30 tabs 12/24/22 potassium chloride 8 mEq 8 meq PO DAILY #90 tabs 12/25/22 tablet,extended release Allergies Allergy/AdvReac Type Severity Reaction Status Date / Time No Known Drug Allergies Allergy Verified 01/01/23 09:06 Review of Systems <Lenard Neely MD - Last Filed: 01/19/23 21:51> Review of Systems Narrative: GENERAL: negative chills, fatigue, malaise, fever, sweats. HEENT: negative sinus pain, ear pain, sore throat RESPIRATORY: Positive dyspnea, negative cough CARDIOVASCULAR: negative chest pain, palpitations GASTROINTESTINAL: negative nausea, vomiting, abdominal pain : negative dysuria, frequency, hematuria MUSCULOSKELETAL: negative muscle or bony pain SKIN: negative rash, skin lesions NEUROLOGIC: negative weakness, numbness ROS Unobtainable: All systems reviewed & are unremarkable except as noted in HPI and below Patient History <Lenard Neely MD - Last Filed: 01/19/23 21:51> Medical History Chicken pox Chronic anticoagulation Chronic atrial fibrillation Dementia Diarrhea Do not resuscitate Essential hypertension GERD without esophagitis GI bleed Hyperlipidemia Hypertension Iron deficiency anemia Measles Migraines Mild cognitive disorder Mixed hyperlipidemia Osteopenia Rectal adenocarcinoma Wears glasses Surgical History Anesthesia History of colonoscopy History of hysterectomy History of partial colectomy Status post colostomy takedown Family History Mother Stroke History of heart disease Hypertension Hyperlipidemia Father Parkinson's disease (tremor, stiffness, slow motion, unstable posture) History of heart disease Hypertension Hyperlipidemia Grandfather History of heart disease Grandfather Cancer Social History marital status: details: (Berto), no children household members: spouse Smoking Status: Never smoker alcohol intake: former Smoking Status: Never smoker alcohol intake frequency: 0-2 drinks per day Substance Use Type: does not use Exam <Lenard Neely MD - Last Filed: 01/19/23 21:51> Narrative Exam Narrative: GENERAL: in no distress, not toxic not dyspneic HEAD: Normocephalic. EYES: Pupils equal round ENT: Mucous membranes moist. NECK: Trachea midline. CARDIOVASCULAR: Irregular irregular rate and rhythm RESPIRATORY: Clear to auscultation. Breath sounds equal bilaterally. No wheezes, rales, or rhonchi. GASTROINTESTINAL: Abdomen soft, non-tender EXTREMITIES: No gross deformities. Calves are nontender bilaterally. Brace removed on the right leg. No palpable cords. BACK: No flank tenderness. NEURO: AOx3. SKIN: Warm and dry PSYCH: Not anxious, is cooperative Initial Vital Signs Initial Vital Signs: Vital Signs Temperature 98.5 F 12/24/22 10:50 Pulse Rate 130 H 12/24/22 10:50 Respiratory Rate 40 H 12/24/22 10:50 Blood Pressure 97/63 12/24/22 10:50 Pulse Oximetry 99 12/24/22 10:50 Oxygen Delivery Method Room Air 12/24/22 10:50 <Emily Norwood MD - Last Filed: 12/24/22 19:53> Initial Vital Signs Initial Vital Signs: Vital Signs Temperature 98.5 F 12/24/22 10:50 Pulse Rate 130 H 12/24/22 10:50 Respiratory Rate 40 H 12/24/22 10:50 Blood Pressure 97/63 12/24/22 10:50 Pulse Oximetry 99 12/24/22 10:50 Oxygen Delivery Method Room Air 12/24/22 10:50 Course <Lenard Neely MD - Last Filed: 01/19/23 21:51> Orders Ordered: Discontinued Medications Furosemide (Furosemide 40 Mg/4 Ml Vial) 40 mg IV NOW ONE Stop: 12/24/22 16:39 Last Admin: 12/24/22 16:51 Dose: 40 mg Documented By: BRISEYDA Vital Signs Vital signs: Vital Signs - 8 hr 12/24/22 12:00 12/24/22 12:00 12/24/22 12:30 Pulse Rate 90 Respiratory Rate 23 Blood Pressure 125/85 128/69 Pulse Oximetry 97 12/24/22 12:30 12/24/22 13:00 12/24/22 13:30 Pulse Rate 96 H 130 H 83 Respiratory Rate 24 30 H 17 Blood Pressure Pulse Oximetry 98 98 12/24/22 14:00 12/24/22 14:30 12/24/22 15:00 Pulse Rate 75 87 83 Respiratory Rate 17 18 18 Blood Pressure Pulse Oximetry 99 97 96 12/24/22 15:30 12/24/22 16:00 12/24/22 16:30 Pulse Rate 74 86 93 H Respiratory Rate 19 24 18 Blood Pressure Pulse Oximetry 99 97 97 12/24/22 17:00 12/24/22 17:30 12/24/22 18:00 Pulse Rate 83 81 74 Respiratory Rate 23 12 21 Blood Pressure Pulse Oximetry 98 99 97 12/24/22 18:30 12/24/22 19:00 12/24/22 19:30 Pulse Rate 79 77 100 H Respiratory Rate 19 23 27 H Blood Pressure Pulse Oximetry 98 97 96 <Emily Norwood MD - Last Filed: 12/24/22 19:53> Orders Ordered: Discontinued Medications Furosemide (Furosemide 40 Mg/4 Ml Vial) 40 mg IV NOW ONE Stop: 12/24/22 16:39 Last Admin: 12/24/22 16:51 Dose: 40 mg Documented By: BRISEYDA Vital Signs Vital signs: Vital Signs - 8 hr 12/24/22 12:00 12/24/22 12:00 12/24/22 12:30 Pulse Rate 90 Respiratory Rate 23 Blood Pressure 125/85 128/69 Pulse Oximetry 97 12/24/22 12:30 12/24/22 13:00 12/24/22 13:30 Pulse Rate 96 H 130 H 83 Respiratory Rate 24 30 H 17 Blood Pressure Pulse Oximetry 98 98 12/24/22 14:00 12/24/22 14:30 12/24/22 15:00 Pulse Rate 75 87 83 Respiratory Rate 17 18 18 Blood Pressure Pulse Oximetry 99 97 96 12/24/22 15:30 12/24/22 16:00 12/24/22 16:30 Pulse Rate 74 86 93 H Respiratory Rate 19 24 18 Blood Pressure Pulse Oximetry 99 97 97 12/24/22 17:00 12/24/22 17:30 12/24/22 18:00 Pulse Rate 83 81 74 Respiratory Rate 23 12 21 Blood Pressure Pulse Oximetry 98 99 97 12/24/22 18:30 12/24/22 19:00 12/24/22 19:30 Pulse Rate 79 77 100 H Respiratory Rate 19 23 27 H Blood Pressure Pulse Oximetry 98 97 96 MDM - SOB/Dyspnea <Lenard Neely MD - Last Filed: 01/19/23 21:51> Lab Data 12/24/22 11:25 12/24/22 11:25 Labs: Lab Results 12/24/22 12/24/22 12/24/22 Range/Units 11:25 11:25 11:25 WBC 5.6 (4.5-11.0) X10^3/uL RBC 4.04 (4.0-5.2) X10^6/uL Hgb 12.3 (12.0-16.0) g/dL Hct 36.3 (36-46) % MCV 89.8 (80-100) fL MCH 30.3 (26-34) PG MCHC 33.8 (30-36) % RDW 17.2 H (11.6-14.8) % Plt Count 305 (150-400) X10^3/uL Neut % (Auto) 63.9 (50-75) % Lymph % (Auto) 22.3 L (25-40) % [place] % (Auto) 11.2 (3-14) % Eos % (Auto) 1.2 L (2-4) % Baso % (Auto) 1.4 (0-2) % Neut # (Auto) 3600 (7115-9829) /uL Lymph # (Auto) 1300 (1300-1874) /uL [place] # (Auto) 600 (0-900) /uL Eos # (Auto) 100 (0-450) /uL Baso # (Auto) 100 (0-100) /uL PT 15.4 H (10.1-12.7) SECONDS INR 1.3 (0.9-1.3) APTT 33 (26-36) SECONDS Sodium 136 L (137-145) mmol/L Potassium 3.9 (3.4-5.1) mmol/L Chloride 107 (98-107) mmol/L Carbon Dioxide 21 L (22-32) mmol/L BUN 16 (7-17) mg/dL Creatinine 0.69 (0.52-1.04) mg/dL Estimated GFR > 60 (>60) mL/min BUN/Creatinine Ratio 23.2 H (6-22) Glucose 97 (80-110) mg/dL Calcium 10.4 H (8.4-10.2) mg/dL Total Bilirubin 1.5 H (0.2-1.3) mg/dL AST 31 (14-36) IU/L ALT 18 (<35) IU/L Alkaline Phosphatase 113 (38-126) U/L Total Creatine Kinase 27 L (30-135) U/L Troponin I < 0.012 (0.01-0.034) ng/mL NT-Pro-B Natriuret Pep (<450) pg/mL Total Protein 7.0 (6.3-8.2) g/dL Albumin 3.9 (3.5-5.0) g/dL Globulin 3.1 (1.7-4.1) g/dL Albumin/Globulin Ratio 1.3 (1.0-2.8) 12/24/22 Range/Units 11:25 WBC (4.5-11.0) X10^3/uL RBC (4.0-5.2) X10^6/uL Hgb (12.0-16.0) g/dL Hct (36-46) % MCV (80-100) fL MCH (26-34) PG MCHC (30-36) % RDW (11.6-14.8) % Plt Count (150-400) X10^3/uL Neut % (Auto) (50-75) % Lymph % (Auto) (25-40) % [place] % (Auto) (3-14) % Eos % (Auto) (2-4) % Baso % (Auto) (0-2) % Neut # (Auto) (6967-9354) /uL Lymph # (Auto) (4459-3189) /uL [place] # (Auto) (0-900) /uL Eos # (Auto) (0-450) /uL Baso # (Auto) (0-100) /uL PT (10.1-12.7) SECONDS INR (0.9-1.3) APTT (26-36) SECONDS Sodium (137-145) mmol/L Potassium (3.4-5.1) mmol/L Chloride (98-107) mmol/L Carbon Dioxide (22-32) mmol/L BUN (7-17) mg/dL Creatinine (0.52-1.04) mg/dL Estimated GFR (>60) mL/min BUN/Creatinine Ratio (6-22) Glucose (80-110) mg/dL Calcium (8.4-10.2) mg/dL Total Bilirubin (0.2-1.3) mg/dL AST (14-36) IU/L ALT (<35) IU/L Alkaline Phosphatase (38-126) U/L Total Creatine Kinase (30-135) U/L Troponin I (0.01-0.034) ng/mL NT-Pro-B Natriuret Pep 2090 H (<450) pg/mL Total Protein (6.3-8.2) g/dL Albumin (3.5-5.0) g/dL Globulin (1.7-4.1) g/dL Albumin/Globulin Ratio (1.0-2.8) Imaging Data US - DVT: Radiologist's Impression: [address] [id number] ReportSigned Patient: Hannah Whitten AMR#: [id number]: 8Acct:[id number]/Sex: 77 / FDate of Service: 12/24/22Loc: EDAccession Number: [id number] Procedure: US periph venous low extrem bi Ordering Provider: Lenard Neely MD PROCEDURE: US PERIPH VENOUS LOW EXTREM BI INDICATIONS: SWELLING TECHNIQUE: Real-time imaging, as well as color and pulse Doppler interrogation, were p erformed of the deep veins of both legs from the inguinal ligament to the popliteal fossa, with documentation of the visualized calf veins. COMPARISON: [facility], CT, CT ANGIO CHEST PE PROTOCOL, 12/24/2022, 11:44. FINDINGS: Right: The common femoral, femoral, popliteal, and the visualized calf veins are normally compressible, and free of intraluminal thrombus. Color and pulse Doppler demonstrate normal phasic intravascular flow. There is normal augmentation response to distal compression maneuver. Left: The common femoral, femoral, popliteal, and the visualized calf veins are normally compressible, and free of intraluminal thrombus. Color and pulse Doppler demonstrate normal phasic intravascular flow. There is normal augmentation response to distal compression maneuver. IMPRESSION: No findings of deep venous thrombosis in either lower extremity. Dictated by: Osmani Hendrickson M.D. on 12/24/2022 at 11:37 Approved by: Osmani Hendrickson M.D. on 12/24/2022 at 11:38 CT scan - chest: Radiologist's Impression: [address] [address] [address] Scan Report Signed Patient: Hannah Whitten MR#: [id number] : 1945 Acct:[id number] Age/Sex: 77 / F Date of Service: 12/24/22 Loc: ED Accession Number: [id number] ?? Procedure: CT angio chest PE protocol Ordering Provider: Lenard Neely MD PROCEDURE:? CT ANGIO CHEST PE PROTOCOL ? INDICATIONS:? Dyspnea ? TECHNIQUE:? After the administration of intravenous contrast, 2 mm thick sections acquired from the pulmonary apices to the posterior costophrenic angles.? 3-dimensional maximum intensity projection (MIP) coronal and sagittal reformats were then acquired through the thorax.? For radiation dose reduction, the following was used:? automated exposure control, adjustment of mA and/or kV according to patient size.? ? COMPARISON:? None. ? FINDINGS:? Image quality:? Excellent.? ? Pulmonary arteries:? Pulmonary arteries are normal in size, and demonstrate no intraluminal filling defects to suggest central pulmonary embolism.? ? Lungs and pleura:? Lungs are clear.? No pleural effusions or pneumothorax.? Ce ntral and peripheral airways are patent.? ? Mediastinum:? Four-chamber cardiomegaly.? No pericardial effusion.? LAD calcifications.? No mediastinal or hilar adenopathy.? Mild aneurysmal dilatation of the ascending aorta, measuring 4.1 cm. Esophagus is normal in caliber, without hiatal hernia.? ? Bones and chest wall:? No suspicious bony lesions.? Ribs and thoracic spine appear intact throughout.? Thyroid gland is unremarkable.? No axillary or supraclavicular adenopathy.? ? Abdomen:? Visualized upper abdominal solid organs appear normal in the early arterial phase of enhancement.? ? IMPRESSION:? ? 1. No acute pulmonary emboli. ? 2. No acute pulmonary process. ? 3. Four-chamber cardiomegaly with LAD calcifications. ? 4. Mild aneurysmal dilatation of the ascending aorta, measuring 4.1 cm. ? ? Dictated by: Bradley Foote M.D. on 12/24/2022 at 12:17 ? ? Approved by: Bradley Foote M.D. on 12/24/2022 at 12:20 ? Echocardiogram: Radiologist's Impression: [address] [address] Echocardiography Report Signed Patient: Hannah Whitten MR#: [id number] : 1945 Acct:[id number] Age/Sex: 77 / F Date of Service: 12/24/22 Loc: ED Accession Number: [id number] ?? Procedure: EC echo doppler complete Ordering Provider: Lenard Neely MD ? [facility]? +---------+ : ? :? [address] ? : ? : : ? :? [place], [place] ? : ? : : ? :? [address] ? : ? : : ? : ? Phone: [phone] : ? : [phone]? [phone]? +---------+ ? Echocardiogram Report + + :Name: HANNAH WHITTEN? Study Date: 12/24/2022 ? Height: 66 in? : :Hospital ? ? ReadingLocation: ? Weight: 160 lb : : ? Gender: Female ? BSA: 1.8 m2? ? : :: 1945? Age: 77 yrs? BP: 128/69 mmHg: :Reason For Study: DYSPNEA/ CONGESTIVE HEART FAILURE? : :Ordering Physician: CHIN,? : :LENARD? Performed By: Marianne aCceres? : :Referring: LENARD NEELY ? : + + Interpretation Summary There is normal left ventricular wall thickness. Left ventricular systolic function is moderately reduced. The ejection fraction is estimated to be 30-35%. Left ventricular function has slightly worsened compared to the previous exam. There is moderate global hypokinesis of the left ventricle. ? The right ventricle is normal size. Right ventricular systolic function is at the lower limits of normal. The right ventricular systolic pressure is estimated to be at least 35 mmHg based on an estimated right atrial pressure of 8 mm Hg. ? The left atrium is severely dilated. The right atrium is moderately dilated. ? There is borderline mitral valve prolapse. There is mild mitral regurgitation. There is mild to moderate aortic regurgitation. There is mild to moderate tricuspid regurgitation. ? The aortic root is normal size. ? Procedure: ? A two-dimensional transthoracic echocardiogram with color flow and Doppler was performed. The study quality was technically adequate. Comparison is made with the echocardiogram of 06/25/2022. The patient was in atrial fibrillation with heart rates between 66-87 bpm during the exam. Left Ventricle: ? There is normal left ventricular wall thickness. Left ventricular systolic function is moderately reduced. The ejection fraction is estimated to be 30-35%. Left ventricular function has slightly worsened compared to the previous exam. There is moderate global hypokinesis of the left ventricle. Diastolic function could not be accurately assessed due to atrial fibrillation. Right Ventricle: ? The right ventricle is normal size. Right ventricular systolic function is at the lower limits of normal. Atria: ? The left atrium is severely dilated. The right atrium is moderately dilated. There is no Doppler evidence for an interatrial shunt. Mitral Valve: ? There is borderline mitral valve prolapse. There is mild mitral regurgitation. Aortic Valve: ? The aortic valve is trileaflet. The aortic valve opens well. There is no aortic valve stenosis. There is mild to moderate aortic regurgitation. Tricuspid Valve: ? The tricuspid valve is normal in structure and function. There is mild to moderate tricuspid regurgitation. The right ventricular systolic pressure is estimated to be at least 35 mmHg based on an estimated right atrial pressure of 8 mm Hg. Pulmonic Valve: ? The pulmonic valve is not well visualized. There is trace pulmonic regurgitation. Great Vessels: ? The aortic root is normal size. The dimensions of the ascending aorta are normal. The IVC is dilated (diameter is greater than 2.1 cm) yet it collapses greater than 50% with a sniff. This suggests a right atrial pressure of 8 mm Hg. Pericardium/ Pleura ? There is no pericardial effusion. There is no pleural effusion. ? MMode/2D Measurements & Calculations LVIDd: 5.5 cm? LVOT diam: 2.1 cm LVIDs: 4.4 cm? Ao root diam: 3.5 cm FS: 20.2 % ? asc Aorta Diam: 3.2 cm EPSS: 1.0 cm ? Ao Arch Diam (Prox Trans): 3.0 cm IVSd: 0.82 cm LVPWd: 0.77 cm LV heck. diameter/BSA (cm/m^2): 3.0 LV sys. diameter/BSA (cm/m^2): 2.4 ? LA A2 area: 35.8 cm2 ? RA long axis: 6.9 cm LA A4 area: 28.6 cm2 ? RA area: 26.2 cm2 LA length (vol): 7.8 cm? RA vol: 84.8 ml LA vol: 110.9 ml ? RA : 46.6 ml/m2 LA vol index: 61.0 ml/m2 ? IVC diam: 2.1 cm ? RVD1 (basal): 3.5 cm RVD2 (mid): 2.7 cm TAPSE: 1.6 cm ? Doppler Measurements & Calculations Ao V2 max: 129.6 cm/sec ? LVOT Max Alberto: 66.1 cm/sec Ao V2 mean: 92.6 cm/sec ? LV V1 max P.7 mmHg Ao max P.7 mmHg ? LV V1 VTI: 12.1 cm Ao mean P.8 mmHg? ALICIA(I,D): 1.7 cm2 Ao V2 VTI: 24.7 cm? ALICIA(V,D): 1.7 cm2 ? sev ratio: 0.49 ? ALICIA indexed to BSA (cm^2/m^2): 0.92 ? AI P1/2t: 951.8 msec ? AI dec slope: 137.6 cm/sec2 ? MV E max alberto: 57.6 cm/sec ? TR max albetro: 259.8 cm/sec MV A max alberto: 0.85 cm/sec ? TR max P.0 mmHg MV E/A: 67.6? PA V2 max: 80.1 cm/sec Med Peak E' Alberto: 7.2 cm/sec ? ? ? PA V2 mean: 58.3 cm/sec E/E' med: 8.0 ? PA mean P.5 mmHg Lat Peak E' Alberto: 13.3 cm/sec? ? ? PA pr(Accel): 37.9 mmHg E/E' lat: 4.3 E/e' average: 6.2 MV dec time: 0.23 sec ? SV(LVOT): 41.1 ml ? Reading Physician:04:32 PM [facility] Narrative Medical decision making narrative: Patient brought here by from primary care office, Dr. Stout, I spoke with him as well before patient was sent over here, patient here for evaluation for shortness of breath, possible pulmonary embolism. Patient has history of atrial fibrillation and is on Xarelto. Patient states it does not feel like her atrial fibrillation she is chronically in it. Denies any chest pain. Patient admitted here 2 weeks ago for surgery secondary to right knee and ankle fracture. Patient has been on Xarelto since then. Patient was transferred to rehab facility and was discharged home 3 days ago. Today in the primary care office was follow-up. She was very dyspneic, has been for the past 3 days. No previous history of lung disease. Does not smoke. No COPD. No asthma. Patient speaking near full sentences. However when speaking seems to require extra breath. After history and exam CT PE protocol EKG BNP troponin CBC CMP ABG bilateral leg ultrasound [facility] CC: Dyspnea Complicating co-morbidities: AFib on Xarelto recent surgery Data collected from: Patient and spouse and primary care provider Medical records reviewed: Discharge summary December 08, 2022 at this hospital Differential considered: Includes but not limited to pneumonia DVT PE atrial fibrillation OR Exam documented above, pertinent findings include: Nontender calves, clear lung sounds Lab Test results independently reviewed as above. Pertinent findings: WBC 5.6 hemoglobin 12.3 INR 1.3 sodium 136 potassium 3.9 BNP 2090 troponin less than 0.012 Independently reviewed EKG atrial fibrillation rate [address] elevation or depression Imaging studies independently reviewed: ultrasound leg bilaterally no DVT CT chest no PE no pulmonary embolism. No acute pulmonary finding, there is 4 chamber cardiomegaly Consultations: 4:48 p.m.. I spoke with cardiology, Dr. Oliveros, on-call balance truer for patient's balance truer dr lynn, recommends starting diuresis here with Lasix, patient has not been on Lasix before. Patient can follow up in the clinic 4:50 p.m.. Spoke with hospitalist, dr mcclellan, he would like trial of Lasix 40 mg IV now. Re-evaluate for dyspnea in 2 hours. May discharge home Lasix 20 mg twice a day or 40 mg once a day if improving. Treatments: Lasix Re-evaluations: 4:55 p.m.. Spoke with patient and results and my discussion with hospitalist and balance truer. They agree with treatment trial plan here Discussion: Diagnosis: 6:00 p.m. Chin: Sign out to Dr Norwood, at this time I have spoken with balance truer and hospitalist, need to try trial at this time for diuretic to see for improvement. Disposition pending response <Emily Norwood MD - Last Filed: 12/24/22 19:53> Lab Data Labs: Lab Results 12/24/22 12/24/22 12/24/22 Range/Units 11:25 11:25 11:25 WBC 5.6 (4.5-11.0) X10^3/uL RBC 4.04 (4.0-5.2) X10^6/uL Hgb 12.3 (12.0-16.0) g/dL Hct 36.3 (36-46) % MCV 89.8 (80-100) fL MCH 30.3 (26-34) PG MCHC 33.8 (30-36) % RDW 17.2 H (11.6-14.8) % Plt Count 305 (150-400) X10^3/uL Neut % (Auto) 63.9 (50-75) % Lymph % (Auto) 22.3 L (25-40) % [place] % (Auto) 11.2 (3-14) % Eos % (Auto) 1.2 L (2-4) % Baso % (Auto) 1.4 (0-2) % Neut # (Auto) 3600 (4323-5663) /uL Lymph # (Auto) 1300 (6395-7062) /uL [place] # (Auto) 600 (0-900) /uL Eos # (Auto) 100 (0-450) /uL Baso # (Auto) 100 (0-100) /uL PT 15.4 H (10.1-12.7) SECONDS INR 1.3 (0.9-1.3) APTT 33 (26-36) SECONDS Sodium 136 L (137-145) mmol/L Potassium 3.9 (3.4-5.1) mmol/L Chloride 107 (98-107) mmol/L Carbon Dioxide 21 L (22-32) mmol/L BUN 16 (7-17) mg/dL Creatinine 0.69 (0.52-1.04) mg/dL Estimated GFR > 60 (>60) mL/min BUN/Creatinine Ratio 23.2 H (6-22) Glucose 97 (80-110) mg/dL Calcium 10.4 H (8.4-10.2) mg/dL Total Bilirubin 1.5 H (0.2-1.3) mg/dL AST 31 (14-36) IU/L ALT 18 (<35) IU/L Alkaline Phosphatase 113 (38-126) U/L Total Creatine Kinase 27 L (30-135) U/L Troponin I < 0.012 (0.01-0.034) ng/mL NT-Pro-B Natriuret Pep (<450) pg/mL Total Protein 7.0 (6.3-8.2) g/dL Albumin 3.9 (3.5-5.0) g/dL Globulin 3.1 (1.7-4.1) g/dL Albumin/Globulin Ratio 1.3 (1.0-2.8) 12/24/22 Range/Units 11:25 WBC (4.5-11.0) X10^3/uL RBC (4.0-5.2) X10^6/uL Hgb (12.0-16.0) g/dL Hct (36-46) % MCV (80-100) fL MCH (26-34) PG MCHC (30-36) % RDW (11.6-14.8) % Plt Count (150-400) X10^3/uL Neut % (Auto) (50-75) % Lymph % (Auto) (25-40) % [place] % (Auto) (3-14) % Eos % (Auto) (2-4) % Baso % (Auto) (0-2) % Neut # (Auto) (1845-9915) /uL Lymph # (Auto) (2200-7454) /uL [place] # (Auto) (0-900) /uL Eos # (Auto) (0-450) /uL Baso # (Auto) (0-100) /uL PT (10.1-12.7) SECONDS INR (0.9-1.3) APTT (26-36) SECONDS Sodium (137-145) mmol/L Potassium (3.4-5.1) mmol/L Chloride (98-107) mmol/L Carbon Dioxide (22-32) mmol/L BUN (7-17) mg/dL Creatinine (0.52-1.04) mg/dL Estimated GFR (>60) mL/min BUN/Creatinine Ratio (6-22) Glucose (80-110) mg/dL Calcium (8.4-10.2) mg/dL Total Bilirubin (0.2-1.3) mg/dL AST (14-36) IU/L ALT (<35) IU/L Alkaline Phosphatase (38-126) U/L Total Creatine Kinase (30-135) U/L Troponin I (0.01-0.034) ng/mL NT-Pro-B Natriuret Pep 2090 H (<450) pg/mL Total Protein (6.3-8.2) g/dL Albumin (3.5-5.0) g/dL Globulin (1.7-4.1) g/dL Albumin/Globulin Ratio (1.0-2.8) Imaging Data CT scan - chest: Radiologist's Impression: PROCEDURE:? CT ANGIO CHEST PE PROTOCOL ? INDICATIONS:? Dyspnea ? TECHNIQUE:? After the administration of intravenous contrast, 2 mm thick sections acquired from the pulmonary apices to the posterior costophrenic angles.? 3-dimensional maximum intensity projection (MIP) coronal and sagittal reformats were then acquired through the thorax.? For radiation dose reduction, the following was used:? automated exposure control, adjustment of mA and/or kV according to patient size.? ? COMPARISON:? None. ? FINDINGS:? Image quality:? Excellent.? ? Pulmonary arteries:? Pulmonary arteries are normal in size, and demonstrate no intraluminal filling defects to suggest central pulmonary embolism.? ? Lungs and pleura:? Lungs are clear.? No pleural effusions or pneumothorax.? Central and peripheral airways are patent.? ? Mediastinum:? Four-chamber cardiomegaly.? No pericardial effusion.? LAD calcifications.? No mediastinal or hilar adenopathy.? Mild aneurysmal dilatation of the ascending aorta, measuring 4.1 cm. Esophagus is normal in caliber, without hiatal hernia.? ? Bones and chest wall:? No suspicious bony lesions.? Ribs and thoracic spine appear intact throughout.? Thyroid gland is unremarkable.? No axillary or supraclavicular adenopathy.? ? Abdomen:? Visualized upper abdominal solid organs appear normal in the early arterial phase of enhancement.? ? IMPRESSION:? ? 1. No acute pulmonary emboli. ? 2. No acute pulmonary process. ? 3. Four-chamber cardiomegaly with LAD calcifications. ? 4. Mild aneurysmal dilatation of the ascending aorta, measuring 4.1 cm. ? ? Dictated by: Bradley Foote M.D. on 12/24/2022 at 12:17 ? ? Approved by: Bradley Foote M.D. on 12/24/2022 at 12:20 ? Echocardiogram: Radiologist's Impression: Accession Number: [id number] ?? Procedure: EC echo doppler complete Ordering Provider: Lenard Neely MD ? [facility]? +---------+ : ? :? [address] ? : ? : : ? :? [place], [place] ? : ? : : ? :? [id number] ? : ? : : ? : ? Phone: [phone]? : ? : [phone]? [phone]? +---------+ ? Echocardiogram Report + + :Name: HANNAH WHITTEN? Study Date: 12/24/2022 ? Height: 66 in? : :Hospital ? ? ReadingLocation: ? Weight: 160 lb : : ? Gender: Female ? BSA: 1.8 m2? ? : :: 1945? Age: 77 yrs? BP: 128/69 mmHg: :Reason For Study: DYSPNEA/ CONGESTIVE HEART FAILURE? : :Ordering Physician: CHIN,? : :LENARD? Performed By: Marianne Caceres? : :Referring: LENARD NEELY ? : + + Interpretation Summary There is normal left ventricular wall thickness. Left ventricular systolic function is moderately reduced. The ejection fraction is estimated to be 30-35%. Left ventricular function has slightly worsened compared to the previous exam. There is moderate global hypokinesis of the left ventricle. ? The right ventricle is normal size. Right ventricular systolic function is at the lower limits of normal. The right ventricular systolic pressure is estimated to be at least 35 mmHg based on an estimated right atrial pressure of 8 mm Hg. ? The left atrium is severely dilated. The right atrium is moderately dilated. ? There is borderline mitral valve prolapse. There is mild mitral regurgitation. There is mild to moderate aortic regurgitation. There is mild to moderate tricuspid regurgitation. ? The aortic root is normal size. ? Procedure: ? A two-dimensional transthoracic echocardiogram with color flow and Doppler was performed. The study quality was technically adequate. Comparison is made with the echocardiogram of 06/25/2022. The patient was in atrial fibrillation with heart rates between 66-87 bpm during the exam. Left Ventricle: ? There is normal left ventricular wall thickness. Left ventricular systolic function is moderately reduced. The ejection fraction is estimated to be 30-35%. Left ventricular function has slightly worsened compared to the previous exam. There is moderate global hypokinesis of the left ventricle. Diastolic function could not be accurately assessed due to atrial fibrillation. Right Ventricle: ? The right ventricle is normal size. Right ventricular systolic function is at the lower limits of normal. Atria: ? The left atrium is severely dilated. The right atrium is moderately dilated. There is no Doppler evidence for an interatrial shunt. Mitral Valve: ? There is borderline mitral valve prolapse. There is mild mitral regurgitation. Aortic Valve: ? The aortic valve is trileaflet. The aortic valve opens well. There is no aortic valve stenosis. There is mild to moderate aortic regurgitation. Tricuspid Valve: ? The tricuspid valve is normal in structure and function. There is mild to moderate tricuspid regurgitation. The right ventricular systolic pressure is estimated to be at least 35 mmHg based on an estimated right atrial pressure of 8 mm Hg. Pulmonic Valve: ? The pulmonic valve is not well visualized. There is trace pulmonic regurgitation. Great Vessels: ? The aortic root is normal size. The dimensions of the ascending aorta are normal. The IVC is dilated (diameter is greater than 2.1 cm) yet it collapses greater than 50% with a sniff. This suggests a right atrial pressure of 8 mm Hg. Pericardium/ Pleura ? There is no pericardial effusion. There is no pleural effusion. ? MMode/2D Measurements & Calculations LVIDd: 5.5 cm? LVOT diam: 2.1 cm LVIDs: 4.4 cm? Ao root diam: 3.5 cm FS: 20.2 % ? asc Aorta Diam: 3.2 cm EPSS: 1.0 cm ? Ao Arch Diam (Prox Trans): 3.0 cm IVSd: 0.82 cm LVPWd: 0.77 cm LV heck. diameter/BSA (cm/m^2): 3.0 LV sys. diameter/BSA (cm/m^2): 2.4 ? LA A2 area: 35.8 cm2 ? RA long axis: 6.9 cm LA A4 area: 28.6 cm2 ? RA area: 26.2 cm2 LA length (vol): 7.8 cm? RA vol: 84.8 ml LA vol: 110.9 ml ? RA : 46.6 ml/m2 LA vol index: 61.0 ml/m2 ? IVC diam: 2.1 cm ? RVD1 (basal): 3.5 cm RVD2 (mid): 2.7 cm TAPSE: 1.6 cm ? Doppler Measurements & Calculations Ao V2 max: 129.6 cm/sec ? LVOT Max Alberto: 66.1 cm/sec Ao V2 mean: 92.6 cm/sec ? LV V1 max P.7 mmHg Ao max P.7 mmHg ? LV V1 VTI: 12.1 cm Ao mean P.8 mmHg? ALICIA(I,D): 1.7 cm2 Ao V2 VTI: 24.7 cm? ALICIA(V,D): 1.7 cm2 ? sev ratio: 0.49 ? ALICIA indexed to BSA (cm^2/m^2): 0.92 ? AI P1/2t: 951.8 msec ? AI dec slope: 137.6 cm/sec2 ? MV E max alberto: 57.6 cm/sec ? TR max alberto: 259.8 cm/sec MV A max alberto: 0.85 cm/sec ? TR max P.0 mmHg MV E/A: 67.6? PA V2 max: 80.1 cm/sec Med Peak E' Alberto: 7.2 cm/sec ? ? ? PA V2 mean: 58.3 cm/sec E/E' med: 8.0 ? PA mean P.5 mmHg Lat Peak E' Alberto: 13.3 cm/sec? ? ? PA pr(Accel): 37.9 mmHg E/E' lat: 4.3 E/e' average: 6.2 MV dec time: 0.23 sec ? SV(LVOT): 41.1 ml ? Reading Physician:04:32 PM MDM Narrative Medical decision making narrative: Patient brought here by from primary care office, Dr. Stout, I spoke with him as well before patient was sent over here, patient here for evaluation for shortness of breath, possible pulmonary embolism. Patient has history of atrial fibrillation and is on Xarelto. Patient states it does not feel like her atrial fibrillation she is chronically in it. Denies any chest pain. Patient admitted here 2 weeks ago for surgery secondary to right knee and ankle fracture. Patient has been on Xarelto since then. Patient was transferred to rehab facility and was discharged home 3 days ago. Today in the primary care office was follow-up. She was very dyspneic, has been for the past 3 days. No previous history of lung disease. Does not smoke. No COPD. No asthma. Patient speaking near full sentences. However when speaking seems to require extra breath. After history and exam CT PE protocol EKG BNP troponin CBC CMP ABG bilateral leg ultrasound [facility] CC: Dyspnea Complicating co-morbidities: AFib on Xarelto recent surgery Data collected from: Patient and spouse and primary care provider Medical records reviewed: Discharge summary December 08, 2022 at this hospital Differential considered: Includes but not limited to pneumonia DVT PE atrial fibrillation OR Exam documented above, pertinent findings include: Nontender calves, clear lung sounds Lab Test results independently reviewed as above. Pertinent findings: WBC 5.6 hemoglobin 12.3 INR 1.3 sodium 136 potassium 3.9 BNP 2090 troponin less than 0.012 Independently reviewed EKG atrial fibrillation rate [address] elevation or depression Imaging studies independently reviewed: ultrasound leg bilaterally no DVT CT chest no PE no pulmonary embolism. No acute pulmonary finding, there is 4 chamber cardiomegaly Consultations: 4:48 p.m.. I spoke with cardiology, Dr. Oliveros, on-call balance truer for patient's balance truer dr lynn, recommends starting diuresis here with Lasix, patient has not been on Lasix before. Patient can follow up in the clinic 4:50 p.m.. Spoke with hospitalist, dr mcclellan, he would like trial of Lasix 40 mg IV now. Re-evaluate for dyspnea in 2 hours. May discharge home Lasix 20 mg twice a day or 40 mg once a day if improving. Treatments: Lasix Re-evaluations: 4:55 p.m.. Spoke with patient and results and my discussion with hospitalist and balance truer. They agree with treatment trial plan here 7pm Dr Norwood, care is assumed. Patient is independently examined. After the 40 mg of IV Lasix she has voided almost 1400 cc and continues to have a brisk diuresis. She states she is feeling significantly better and is requesting discharge home. Because she is still voiding so much will give her another hour to make sure that she is able to get home without having an accident in the car on the way home Discussion: 77-year-old woman with increasing dyspnea workup in the emergency department has been quite thorough with no evidence of acute coronary syndrome, pulmonary embolism, infection but likely mild volume overload. Care had been discussed with Cardiology as well as admitting hospitalist and plan was to try d iuresis in the emergency department and see if she could be transferred home with oral Lasix. It does appear that that plan has been quite successful and patient is pleased with the idea of discharge home. At this point her oxygen saturations are 99% on room air, vital signs are stable, she has appropriate outpatient follow-up available and will plan for discharge home 6:00 p.m. Chin: Sign out to Dr Norwood, at this time I have spoken with balance truer and hospitalist, need to try trial at this time for diuretic to see for improvement. Disposition pending response Discharge Plan Departure Patient Disposition: Home Clinical Impression: Congestive heart failure Instructions: DI for Heart Failure Activity Restrictions/Additional Instructions: Thank you for coming in today There is no evidence for severe anemia, acute hard of CT, pulmonary infection, blood clots in your lungs. The echocardiogram does suggest some congestive heart failure. Your body has responded beautifully to 40 mg of IV Lasix any put out close to 2 L of fluid. I think that that will help significantly with beer dyspnea. In discussion with your doctors, we agreed at home is a safe option for you at this point. However I am going to suggest that you begin taking Lasix. Given your brisk response to the 40 mg IV, I am going to give you a prescription for 20 mg of oral Lasix to take daily along with small amount of potassium. Lasix does make you lose potassium beyond what your typically able to replace with diet. Prescriptions were electronically transmitted to [facility] I would recommend that you weigh yourself daily. If you have more than a 3 lb increase in weight, this indicates fluid retention and you may need more Lasix. Please contact your provider if weight increases this much. You will need a follow-up with your primary care doctor within the next week or so. If you find that you are getting worse or develop any new symptoms, please feel free to return to the emergency department for further evaluation. Prescriptions: New furosemide 20 mg tablet 20 mg PO DAILY Qty: 30 0RF No Action potassium chloride 8 mEq tablet extended release 8 meq PO DAILY Qty: 90 0RF metoprolol succinate 100 mg tablet extended release 24 hr 100 mg PO QAM magnesium 250 mg tablet 250 mg PO QPM cholecalciferol (vitamin D3) 50 mcg (2,000 unit) capsule 50 mcg PO QAM ferrous sulfate 325 mg (65 mg iron) tablet 325 mg PO QAM losartan 25 mg tablet 25 mg PO QPM rosuvastatin 5 mg tablet 5 mg PO QPM rivaroxaban 10 mg Tablet 10 mg PO QPM Rx Instructions: for 35 days donepezil 10 mg tablet 10 mg PO QAM acetaminophen [Tylenol] 325 mg capsule 650 mg PO QID PRN (Reason: pain) Qty: 60 0RF Referrals: Maninder Stout MD [Primary Care Provider] - Stand Alone Forms: Patient Portal/API
[2022-12-24 11:32] LABS: Add Manual Diff / Slide Review NO; Basophils Absolute Auto 100 /uL (0-100); Basophils Percent Auto 1.4 % (0-2); Eosinophils Absolute Auto 100 /uL (0-450); Eosinophils Percent Auto 1.2 % (2-4); Hematocrit 36.3 % (36-46); Hemoglobin 12.3 g/dL (12.0-16.0); Lymphocytes Absolute Auto 1300 /uL (1100-4500); Lymphocytes Percent Auto 22.3 % (25-40); Mean Corpuscular HGB Conc 33.8 % (30-36); Mean Corpuscular Hemoglobin 30.3 PG (26-34); Mean Corpuscular Volume 89.8 fL (80-100); Monocytes Absolute Auto 600 /uL (0-900); Monocytes Percent Auto 11.2 % (3-14); Neutrophils Absolute Auto 3600 /uL (1500-7000); Neutrophils Percent Auto 63.9 % (50-75); Platelet Count 305 X10^3/uL (150-400); Red Blood Cell Count 4.04 X10^6/uL (4.0-5.2); Red Cell Distribution Width 17.2 % (11.6-14.8); White Blood Cell Count 5.6 X10^3/uL (4.5-11.0)
[2022-12-24 11:37] LABS: INR 1.3 (0.9-1.3); Prothrombin Time 15.4 SECONDS (10.1-12.7)
[2022-12-24 11:39] LABS: PTT Partial Thromboplastin Tim 33 SECONDS (26-36)
[2022-12-24 11:55] LABS: Alanine Aminotransferase 18 IU/L (<35); Albumin 3.9 g/dL (3.5-5.0); Albumin Globulin Ratio 1.3 (1.0-2.8); Alkaline Phosphatase 113 U/L (38-126); Aspartate Aminotransferase 31 IU/L (14-36); BUN Creatinine Ratio 23.2 (6-22); Bilirubin Total 1.5 mg/dL (0.2-1.3); Blood Urea Nitrogen 16 mg/dL (7-17); Calcium 10.4 mg/dL (8.4-10.2); Carbon Dioxide 21 mmol/L (22-32); Chloride 107 mmol/L (98-107); Creatine Kinase 27 U/L (30-135); Estimated Glomerular Filt Rate > 60 mL/min (>60); Globulin 3.1 g/dL (1.7-4.1); Glucose 97 mg/dL (80-110); HEMOLYSIS < 15 (0-50); Potassium 3.9 mmol/L (3.4-5.1); Sodium 136 mmol/L (137-145)
[2022-12-24 12:04] LABS: NT-proBNP (BNP-Adult 18+) 2090 pg/mL (<450)
[2022-12-24 12:07] LABS: Troponin I < 0.012 ng/mL (0.01-0.034)
--- NOTE | 2022-12-24 13:01 | DI.ECHO.S_ITS ---
[facility] +---------+ [facility] +---------+ : : [address] : : : : [id number] : : : : Phone: [phone] : : [phone] +---------+ Echocardiogram Report + + :Name: JAMES WHITTEN Study Date: 12/24/2022 Height: 66 in : :[facility] ReadingLocation: Weight: 160 lb : : Gender: Female BSA: 1.8 m2 : :: 1945 Age: 77 yrs BP: 128/69 mmHg: :Reason For Study: DYSPNEA/ CONGESTIVE HEART FAILURE : :Ordering Physician: CHIN, : :LENARD Performed By: Marianne Caceres : :Referring: LENARD NEELY : + + Interpretation Summary There is normal left ventricular wall thickness. Left ventricular systolic function is moderately reduced. The ejection fraction is estimated to be 30-35%. Left ventricular function has slightly worsened compared to the previous exam. There is moderate global hypokinesis of the left ventricle. The right ventricle is normal size. Right ventricular systolic function is at the lower limits of normal. The right ventricular systolic pressure is estimated to be at least 35 mmHg based on an estimated right atrial pressure of 8 mm Hg. The left atrium is severely dilated. The right atrium is moderately dilated. There is borderline mitral valve prolapse. There is mild mitral regurgitation. There is mild to moderate aortic regurgitation. There is mild to moderate tricuspid regurgitation. The aortic root is normal size. Procedure: A two-dimensional transthoracic echocardiogram with color flow and Doppler was performed. The study quality was technically adequate. Comparison is made with the echocardiogram of 06/25/2022. The patient was in atrial fibrillation with heart rates between 66-87 bpm during the exam. Left Ventricle: There is normal left ventricular wall thickness. Left ventricular systolic function is moderately reduced. The ejection fraction is estimated to be 30-35%. Left ventricular function has slightly worsened compared to the previous exam. There is moderate global hypokinesis of the left ventricle. Diastolic function could not be accurately assessed due to atrial fibrillation. Right Ventricle: The right ventricle is normal size. Right ventricular systolic function is at the lower limits of normal. Atria: The left atrium is severely dilated. The right atrium is moderately dilated. There is no Doppler evidence for an interatrial shunt. Mitral Valve: There is borderline mitral valve prolapse. There is mild mitral regurgitation. Aortic Valve: The aortic valve is trileaflet. The aortic valve opens well. There is no aortic valve stenosis. There is mild to moderate aortic regurgitation. Tricuspid Valve: The tricuspid valve is normal in structure and function. There is mild to moderate tricuspid regurgitation. The right ventricular systolic pressure is estimated to be at least 35 mmHg based on an estimated right atrial pressure of 8 mm Hg. Pulmonic Valve: The pulmonic valve is not well visualized. There is trace pulmonic regurgitation. Great Vessels: The aortic root is normal size. The dimensions of the ascending aorta are normal. The IVC is dilated (diameter is greater than 2.1 cm) yet it collapses greater than 50% with a sniff. This suggests a right atrial pressure of 8 mm Hg. Pericardium/ Pleura There is no pericardial effusion. There is no pleural effusion. MMode/2D Measurements & Calculations LVIDd: 5.5 cm LVOT diam: 2.1 cm LVIDs: 4.4 cm Ao root diam: 3.5 cm FS: 20.2 % asc Aorta Diam: 3.2 cm EPSS: 1.0 cm Ao Arch Diam (Prox Trans): 3.0 cm IVSd: 0.82 cm LVPWd: 0.77 cm LV heck. diameter/BSA (cm/m^2): 3.0 LV sys. diameter/BSA (cm/m^2): 2.4 LA A2 area: 35.8 cm2 RA long axis: 6.9 cm LA A4 area: 28.6 cm2 RA area: 26.2 cm2 LA length (vol): 7.8 cm RA vol: 84.8 ml LA vol: 110.9 ml RA : 46.6 ml/m2 LA vol index: 61.0 ml/m2 IVC diam: 2.1 cm RVD1 (basal): 3.5 cm RVD2 (mid): 2.7 cm TAPSE: 1.6 cm Doppler Measurements & Calculations Ao V2 max: 129.6 cm/sec LVOT Max Alberto: 66.1 cm/sec Ao V2 mean: 92.6 cm/sec LV V1 max P.7 mmHg Ao max P.7 mmHg LV V1 VTI: 12.1 cm Ao mean P.8 mmHg ALICIA(I,D): 1.7 cm2 Ao V2 VTI: 24.7 cm ALICIA(V,D): 1.7 cm2 sev ratio: 0.49 ALICIA indexed to BSA (cm^2/m^2): 0.92 AI P1/2t: 951.8 msec AI dec slope: 137.6 cm/sec2 MV E max alberto: 57.6 cm/sec TR max alberto: 259.8 cm/sec MV A max alberto: 0.85 cm/sec TR max P.0 mmHg MV E/A: 67.6 PA V2 max: 80.1 cm/sec Med Peak E' Alberto: 7.2 cm/sec PA V2 mean: 58.3 cm/sec E/E' med: 8.0 PA mean P.5 mmHg Lat Peak E' Alberto: 13.3 cm/sec PA pr(Accel): 37.9 mmHg E/E' lat: 4.3 E/e' average: 6.2 MV dec time: 0.23 sec SV(LVOT): 41.1 ml Reading Physician:04:32 PM
[2022-12-24] MEDS: FUROSEMIDE 40 MG/4 ML VIAL IV (16:51)
--- NOTE | 2022-12-24 19:40 | PC.NURSE ---
BODY WELDER note: did a total linen change. Patient's linens were soiled.
== END 2022-12-24 20:03 | disposition home or self-care (01) ==
PROVIDERS: Emergency Medicine; Emergency Provider Emergency Medicine; PCP Internal Medicine
DX: I50.9 Heart failure, unspecified (principal); R06.00 Dyspnea, unspecified; Z79.01 Long term (current) use of anticoagulants
CPT/HCPCS: 36415; 71275; 80053; 82550; 83880; 84484; 85025; 85610; 85730; 93005; 93306; 93970; 96374; 99284; J1940; Q9967

== ENCOUNTER → 2023-01-06 13:41 | Outpatient (CLI) | payer MEDICARE, SELFPAY ==
[2022-12-06 15:54] VITALS: BMI 25.2
[2023-01-06 15:00] LABS: Add Manual Diff / Slide Review NO; Basophils Absolute Auto 0 /uL (0-100); Eosinophils Absolute Auto 200 /uL (0-450); Eosinophils Percent Auto 4.9 % (2-4); Hematocrit 37.9 % (36-46); Hemoglobin 12.7 g/dL (12.0-16.0); Lymphocytes Absolute Auto 1300 /uL (1100-4500); Lymphocytes Percent Auto 28.9 % (25-40); Mean Corpuscular HGB Conc 33.4 % (30-36); Mean Corpuscular Hemoglobin 30.2 PG (26-34); Mean Corpuscular Volume 90.6 fL (80-100); Monocytes Absolute Auto 400 /uL (0-900); Monocytes Percent Auto 9.8 % (3-14); Neutrophils Absolute Auto 2400 /uL (1500-7000); Neutrophils Percent Auto 55.4 % (50-75); Platelet Count 177 X10^3/uL (150-400); Red Blood Cell Count 4.18 X10^6/uL (4.0-5.2); Red Cell Distribution Width 15.8 % (11.6-14.8); White Blood Cell Count 4.4 X10^3/uL (4.5-11.0)
[2023-01-06 15:19] LABS: BUN Creatinine Ratio 23.1 (6-22); Blood Urea Nitrogen 15 mg/dL (7-17); Calcium 9.9 mg/dL (8.4-10.2); Carbon Dioxide 22 mmol/L (22-32); Chloride 109 mmol/L (98-107); Estimated Glomerular Filt Rate > 60 mL/min (>60); Glucose 143 mg/dL (80-110); HEMOLYSIS < 15 (0-50); Potassium 3.8 mmol/L (3.4-5.1); Sodium 139 mmol/L (137-145)
[2023-01-06 15:26] LABS: NT-proBNP (BNP-Adult 18+) 1560 pg/mL (<450)
== END ==
PROVIDERS: PCP Internal Medicine; Referring Provider Internal Medicine Cardiovascular Disease; Visit Provider Internal Medicine Cardiovascular Disease
DX: I42.9 Cardiomyopathy, unspecified (principal); R06.09 Other forms of dyspnea; I48.0 Paroxysmal atrial fibrillation; D50.0 Iron deficiency anemia secondary to blood loss (chronic)
CPT/HCPCS: 36415; 80048; 83880; 85025

== ENCOUNTER → 2023-03-05 12:05 | Outpatient (CLI) | payer MEDICARE, SELFPAY ==
[2022-12-06 15:54] VITALS: BMI 25.2
--- NOTE | 2023-03-05 | DI.ECHO.S_ITS ---
[facility] +---------+ [facility] +---------+ : : [address] : : : : [id number] : : : : Phone: [phone] : : [phone] +---------+ Echocardiogram Report + + :Name: JAMES WHITTEN Study Date: 03/05/2023 Height: 66 in : :[facility] ReadingLocation: Weight: 130 lb: : Gender: Female BSA: 1.7 m2 : :: 1945 Age: 77 yrs BP: 95/64 mmHg: :Reason For Study: Cardiomyopathy : :Ordering Physician: GLENROY, : :COOPER Performed By: Sania High : :Referring: COOPER TOVAR : + + Interpretation Summary 1) Normal left ventricular size with moderately reduced systolic function (EF 35-40%). Exact EF hard to ascertain due to R-R variability. 2) Mildly enlarged right ventricle with mildly reduced function. 3) The left atrium is severely dilated. 4) There is borderline mitral valve prolapse of the anterior leaflet. There is mild mitral regurgitation. 5) Compared to the Echo done 12/24/2022, no significant change. Procedure: A two-dimensional transthoracic echocardiogram with color flow and Doppler was performed. The study quality was technically adequate. Comparison is made with the echocardiogram of 12/24/2022. The patient was in atrial fibrillation with heart rates between 74-145 bpm during the exam. Left Ventricle: The left ventricle is normal in size and wall thickness. The ejection fraction is estimated to be 35-40%. There is moderate global hypokinesis of the left ventricle. Diastolic function could not be accurately assessed due to atrial fibrillation. Right Ventricle: The right ventricle is mildly dilated. Right ventricular systolic function is mildly reduced. Atria: The left atrium is severely dilated. The right atrium is moderately dilated. There is no Doppler evidence for an interatrial shunt. Mitral Valve: The mitral valve leaflets appear mildly thickened, but open well. There is borderline mitral valve prolapse. There is no mitral valve stenosis. There is mild mitral regurgitation. Aortic Valve: The aortic valve is trileaflet. The aortic valve opens well. There is mild aortic valve sclerosis. There is no aortic valve stenosis. There is mild aortic regurgitation. Tricuspid Valve: The tricuspid valve is normal. There is no tricuspid stenosis. There is mild tricuspid regurgitation. The right ventricular systolic pressure is estimated to be at least 31 mmHg based on an estimated right atrial pressure of 8 mm Hg. Pulmonic Valve: The pulmonic valve is not well visualized. There is no pulmonic valvular stenosis. There is mild pulmonic regurgitation. Great Vessels: The aortic root is normal size. The ascending aorta is at the upper limits of normal in size. The aortic arch is normal in size. The pulmonary artery is normal size. The IVC is dilated (diameter is greater than 2.1 cm) yet it collapses greater than 50% with a sniff. This suggests a right atrial pressure of 8 mm Hg. Pericardium/ Pleura There is no pericardial effusion. There is no pleural effusion. MMode/2D Measurements & Calculations LVIDd: 4.2 cm LVOT diam: 2.0 cm LVIDs: 3.9 cm Ao root diam: 3.5 cm FS: 7.1 % asc Aorta Diam: 3.6 cm IVSd: 1.0 cm LVPWd: 0.90 cm LV heck. diameter/BSA (cm/m^2): 2.5 LV sys. diameter/BSA (cm/m^2): 2.3 LA A2 area: 29.5 cm2 RA long axis: 7.0 cm LA A4 area: 21.9 cm2 RA area: 23.0 cm2 LA length (vol): 6.4 cm RA vol: 64.1 ml LA vol: 86.2 ml RA : 38.5 ml/m2 LA vol index: 51.8 ml/m2 RVD1 (basal): 4.2 cm LVLs ap4: 5.2 cm LVLd ap2: 6.2 cm TAPSE_phl: 1.2 cm LVLs ap2: 6.0 cm Doppler Measurements & Calculations TR max angelica: 237.8 cm/sec TR max P.6 mmHg Reading Physician:06:02 PM
== END ==
PROVIDERS: PCP Internal Medicine; Referring Provider Internal Medicine Cardiovascular Disease; Visit Provider Internal Medicine Cardiovascular Disease
DX: I42.9 Cardiomyopathy, unspecified (principal); I51.7 Cardiomegaly; I34.1 Nonrheumatic mitral (valve) prolapse; I34.0 Nonrheumatic mitral (valve) insufficiency
CPT/HCPCS: 93306

== ENCOUNTER → 2023-08-11 08:18 | Outpatient (CLI) | payer MEDICARE, SELFPAY ==
[2022-12-06 15:54] VITALS: BMI 25.2
[2023-08-11 09:18] LABS: Appearance Urine UA CLOUDY; Bilirubin Urine UA NEGATIVE (NEGATIVE); Color Urine UA YELLOW; Glucose Urine UA NEGATIVE (Negative); Ketones Urine UA TRACE (NEGATIVE); Leukocyte Esterase Urine UA NEGATIVE (NEGATIVE); Nitrite Urine UA NEGATIVE (Negative); Occult Blood Urine UA NEGATIVE (Negative); Protein Urine UA 1+ (Negative); Specific Gravity Urine UA >=1.030 (1.000-1.035); Urobilinogen Urine UA 0.2 E.U./dL (0.2)
[2023-08-11 09:33] LABS: RBC Urine None Seen (0-5/HPF); Urine Volume 10mL (spun); WBC Urine 0-1/HPF (0-5/HPF)
[2023-08-11 09:34] LABS: Amorphous Sediment Urine 1+; Bacteria Urine Many (>30); Calcium Oxalate Crystals Urine Moderate; Culture Indicated Urine Cult Not Indicated; Squamous Epithelial Cell Urine None Seen (0-5/HPF)
== END ==
PROVIDERS: PCP Internal Medicine; Referring Provider General Practice; Visit Provider General Practice
DX: R31.9 Hematuria, unspecified (principal)
CPT/HCPCS: 81001

== ENCOUNTER → 2023-08-12 13:37 | Outpatient (CLI) | payer MEDICARE, SELFPAY ==
[2022-12-06 15:54] VITALS: BMI 25.2
== END ==
PROVIDERS: PCP Internal Medicine; Referring Provider Internal Medicine; Visit Provider Surgery
DX: Z93.2 Ileostomy status (principal); K94.19 Other complications of enterostomy
CPT/HCPCS: 99203; 99213

== ENCOUNTER → 2023-08-19 15:08 | Outpatient (CLI) | payer MEDICARE, SELFPAY ==
[2022-12-06 15:54] VITALS: BMI 25.2
== END ==
LOC: WC 15:12
PROVIDERS: PCP Internal Medicine; Referring Provider Internal Medicine; Visit Provider Surgery
DX: Z93.3 Colostomy status (principal)
CPT/HCPCS: 99213

== ENCOUNTER → 2023-09-02 12:56 | Outpatient (CLI) | payer MEDICARE, SELFPAY ==
[2022-12-06 15:54] VITALS: BMI 25.2
== END ==
LOC: WC 12:58
PROVIDERS: PCP Internal Medicine; Referring Provider Internal Medicine; Visit Provider Surgery
DX: Z43.3 Encounter for attention to colostomy (principal)
CPT/HCPCS: 99212

== ENCOUNTER → 2023-12-13 14:54 | Outpatient (CLI) | payer MEDICARE, SELFPAY ==
[2022-12-06 15:54] VITALS: BMI 25.2
--- NOTE | 2023-12-13 14:55 | DI.MRI.S_ITS ---
PROCEDURE: MR PELIS WO/W CON INDICATIONS: RECTAL CANCER/RADICULOPATHY OF LUMBAR REGION TECHNIQUE: Coronal HASTE, sagittal T2 FSE, axial T1 FSE, axial and coronal nonbreath-hold T2 FSE. Axial dynamic VIBE during administration of contrast. Post-contrast axial and coronal VIBE/2-D FLASH with fat saturation from the iliac crests to the symphysis. Restricted diffusion weighted imaging and ADC. 10 cc ProHance IV contrast. COMPARISON: [facility], MR, MR LUMBAR SPINE WO/W CON, 12/13/2023, 15:12. [facility], CT, CT CHEST ABDOMEN PELVIS WITH CONTRAST, 06/16/2023, 15:15. FINDINGS: Image quality: Good. Post APR. Left colostomy. The previously seen presacral collection is essentially resolved. Small amount of lower presacral fluid measuring 2.9 x 2.7 x 0.8 cm, estimated volume of 3 cc, slightly increased in size compared to 09/12/2023. Small nodular presacral focus, (). No restricted diffusion or enhancement appreciated. Genitourinary: Uterus is absent. Bladder is unremarkable. Vessels: No filling defect identified. Nerves (lumbosacral nerve roots): No lesion identified. Regional lymph nodes (mesorectal, inguinal, iliac): No enlarged lymph nodes seen. Other bowel and peritoneum: More proximal colon and small bowel loops are normal in caliber. Bones: T1 hypointense signal with corresponding T2 hyperintense signal at the sacral all a bilaterally, (12/05), new. IMPRESSION: 1. The previously seen presacral collection is essentially resolved. 2. Small amount of fluid near the surgical site measuring approximately 3 cc. 3. Small nodular presacral focus. This could represent granulation tissue. No enhancement or restricted diffusion appreciated. 4. No enlarged lymph nodes seen. Consider CT pelvis IV contrast for further evaluation. Dictated by: Vniay Roach M.D. on 12/14/2023 at 11:55 Approved by: Vinay Roach M.D. on 12/14/2023 at 12:27
--- NOTE | 2023-12-13 14:55 | DI.MRI.S_ITS ---
PROCEDURE: MR LUMBAR SPINE WO/W CON INDICATIONS: RECTAL CANCER/RADICULOPATHY OF LUMBAR REGION TECHNIQUE: Noncontrast sagittal T1 spin echo and T2 fast echo, sagittal STIR, and T2 fast spin echo through the lumbar spine. In cases with scoliosis, additional coronal T2 fast spin echo may be performed. COMPARISON: [facility], MR, MR PELVIS WO/W CON, 12/13/2023, 15:33. [facility], CT, CT CHEST ABDOMEN PELVIS WITH CONTRAST, 06/16/2023, 15:15. FINDINGS: Image quality: This examination is limited by involuntary motion artifact. Alignment and Curvature: There is minimal retrolisthesis at T12-L1, L1-L2, and L2-L3. Mild grade 1 anterolisthesis is seen at L4-L5. No associated pars defects are seen. Bone Marrow: Marrow is of normal overall signal. There is an interval fracture at the inferior endplate of L5, with associated increased STIR signal, which is new compared to the CT dated 06/16/2023. There is 35% loss of height centrally. No posterior displacement fracture fragments can be seen. Along the fracture cleft, there is increased enhancement seen, which is attributed to a benign reparative response. Abnormal STIR signal can be seen within the sacral ala on both sides. Within the superior aspect of T12, there is a focus of abnormally increased STIR signal and abnormal enhancement seen measuring 7 mm, as on series 10, image 8. Spinal Cord: Conus medullaris terminates at the L1 level. Visualized cord demonstrates normal signal and size. Paraspinous Soft Tissues: No paravertebral masses. T12-L1: Moderate loss of disc height is seen. Loss of disc signal is seen. Moderate generalized disc bulge is seen. There is a central disc osteophyte protrusion. There is at least moderate bilateral neural foraminal narrowing seen. Moderate central canal narrowing is seen. L1-L2: At least moderate loss of disc height and disc signal can be seen. Moderate disc bulge is seen, with a central disc osteophyte protrusion. Moderate bilateral neural foraminal narrowing is seen. Moderate central canal narrowing is seen. L2-L3: [id number] loss of disc height and disc signal can be seen. Moderate generalized disc bulge is seen. Mild facet joint hypertrophy is seen. Moderate bilateral neural foraminal narrowing is seen. Mild central canal narrowing is seen. L3-L4: The disc height is well-preserved. Loss of disc signal is seen at this level. Mild to moderate disc bulge is seen. Moderate facet joint hypertrophy is seen. There is moderate to severe bilateral neural foraminal narrowing seen, with an associated degree of compression seen upon the exiting nerve roots. Moderate central canal narrowing is seen. L4-L5: Mild loss of disc height is seen. Loss of disc signal is seen. Moderate generalized disc bulge is seen. Prominent facet hypertrophy is seen at this level. There is moderate to severe bilateral neural foraminal narrowing seen, with an associated degree of compression seen upon the exiting nerve roots. Moderate to severe central canal narrowing is seen. L5-S1: The disc height and disk signal are relatively well-preserved. Mild to moderate disc bulge is seen, which is eccentric to the right. Moderate facet joint hypertrophy is seen. There is at least moderate bilateral neural foraminal narrowing seen. There is a degree of compression seen upon the exiting nerve roots. Mild central canal narrowing is seen. IMPRESSION: There is an acute/subacute fracture seen at the inferior endplate of L5, with 35% loss of height centrally. Presumed insufficiency fractures seen involving the sacral ala on both sides. Potential 7 mm focus of metastatic disease within the superior aspect of the T12 vertebral body. Multiple levels of underlying degenerative change are seen, which are worst inferiorly. Dictated by: Osmani Hendrickson M.D. on 12/14/2023 at 16:38 Approved by: Osmani Hendrickson M.D. on 12/14/2023 at 16:44
== END ==
PROVIDERS: PCP Internal Medicine; Referring Provider Radiology Radiation Oncology; Visit Provider Radiology Radiation Oncology
DX: M48.56XA Collapsed vertebra, not elsewhere classified, lumbar region, initial encounter for fracture (principal); C20 Malignant neoplasm of rectum; M47.26 Other spondylosis with radiculopathy, lumbar region; M47.27 Other spondylosis with radiculopathy, lumbosacral region; Z93.3 Colostomy status; Z90.710 Acquired absence of both cervix and uterus
CPT/HCPCS: 72158; 72197; A9579

== ENCOUNTER → 2023-12-16 15:03 | Outpatient (CLI) | payer MEDICARE, SELFPAY ==
[2022-12-06 15:54] VITALS: BMI 25.2
== END ==
LOC: WC 15:04
PROVIDERS: PCP Internal Medicine; Referring Provider Internal Medicine; Visit Provider Surgery
DX: Z93.2 Ileostomy status (principal)
CPT/HCPCS: 99212; 99213

== ENCOUNTER → 2023-12-23 10:10 | Outpatient (CLI) | payer MEDICARE, SELFPAY ==
[2022-12-06 15:54] VITALS: BMI 25.2
== END ==
LOC: WC 10:11
PROVIDERS: PCP Internal Medicine; Referring Provider Internal Medicine; Visit Provider Nurse Practitioner Family
DX: Z43.2 Encounter for attention to ileostomy (principal)
CPT/HCPCS: 99213

== ENCOUNTER → 2023-12-30 13:20 | Outpatient (CLI) | payer MEDICARE, SELFPAY ==
[2022-12-06 15:54] VITALS: BMI 25.2
== END ==
LOC: WC 13:22
PROVIDERS: PCP Internal Medicine; Referring Provider Internal Medicine; Visit Provider Surgery
DX: Z43.2 Encounter for attention to ileostomy (principal)
CPT/HCPCS: 99213

== ENCOUNTER → 2024-02-24 13:39 | Outpatient (CLI) | payer MEDICARE, SELFPAY ==
[2022-12-06 15:54] VITALS: BMI 25.2
== END ==
PROVIDERS: PCP Internal Medicine; Referring Provider Internal Medicine; Visit Provider Surgery
DX: L24.B1 Irritant contact dermatitis related to digestive stoma or fistula (principal); Z93.2 Ileostomy status
CPT/HCPCS: 99212; 99213

== ENCOUNTER → 2024-02-25 09:06 | Outpatient (CLI) | payer MEDICARE, SELFPAY ==
[2022-12-06 15:54] VITALS: BMI 25.2
[2024-02-25 10:11] LABS: Hematocrit 42.5 % (36-46); Hemoglobin 14.5 g/dL (12.0-16.0); Mean Corpuscular Hemoglobin 30.8 PG (26-34); Mean Corpuscular Volume 90.4 fL (80-100); Platelet Count 208 X10^3/uL (150-400); Red Blood Cell Count 4.71 X10^6/uL (4.0-5.2); Red Cell Distribution Width 13.8 % (11.6-14.8); White Blood Cell Count 5.8 X10^3/uL (4.5-11.0)
[2024-02-25 11:05] LABS: TSH w/ Reflex to FT4 1.79 uIU/mL (0.47-4.68)
[2024-02-25 12:06] LABS: Alanine Aminotransferase 30 IU/L (<35); Albumin 4.2 g/dL (3.5-5.0); Albumin Globulin Ratio 1.6 (1.0-2.8); Alkaline Phosphatase 80 U/L (38-126); Aspartate Aminotransferase 35 IU/L (14-36); BUN Creatinine Ratio 20.8 (6-22); Bilirubin Total 1.7 mg/dL (0.2-1.3); Blood Urea Nitrogen 16 mg/dL (7-17); Carbon Dioxide 22 mmol/L (22-32); Chloride 108 mmol/L (98-107); Cholesterol 146 mg/dL (140-199); Estimated Glomerular Filt Rate > 60 mL/min (>60); Globulin 2.7 g/dL (1.7-4.1); Glucose 91 mg/dL (80-110); HDL Cholesterol 71 mg/dL (40-60); HEMOLYSIS < 15 (0-50); LDL Cholesterol Calculated 54 mg/dL (<100); Potassium 4.4 mmol/L (3.4-5.1); Sodium 138 mmol/L (137-145); Total Protein 6.9 g/dL (6.3-8.2); Triglycerides 104 mg/dL (35-150)
[2024-02-25 13:32] LABS: Vitamin B12 Reflex MMA if <400 598 pg/mL (239-931)
== END ==
PROVIDERS: PCP Internal Medicine; Referring Provider Internal Medicine; Visit Provider Internal Medicine
DX: E53.8 Deficiency of other specified B group vitamins (principal); I50.22 Chronic systolic (congestive) heart failure; E78.2 Mixed hyperlipidemia
CPT/HCPCS: 36415; 80053; 80061; 82607; 84155; 84165; 84443; 85027

== ENCOUNTER → 2024-03-09 13:07 | Outpatient (CLI) | payer MEDICARE, SELFPAY ==
[2022-12-06 15:54] VITALS: BMI 25.2
== END ==
LOC: WC 13:08
PROVIDERS: PCP Internal Medicine; Referring Provider Internal Medicine; Visit Provider Surgery
DX: Z43.2 Encounter for attention to ileostomy (principal)
CPT/HCPCS: 99212

== ENCOUNTER → 2024-03-23 10:06 | Outpatient (CLI) | payer MEDICARE, SELFPAY ==
[2022-12-06 15:54] VITALS: BMI 25.2
== END ==
LOC: WC 10:11
PROVIDERS: PCP Internal Medicine; Referring Provider Internal Medicine; Visit Provider Surgery
DX: Z93.2 Ileostomy status (principal)
CPT/HCPCS: 99213

== ENCOUNTER 2024-05-11 09:18 | Emergency (ER) | payer MEDICARE, SELFPAY ==
[2022-12-06 15:54] VITALS: BMI 25.2
[2024-05-11] VITALS (19 sets, daily range): BP systolic 92–129; BP diastolic 52–77; PULSE 57–89; RESP 13–35; TEMP 36.3; O2SAT 95–100; BMI 20.9
--- NOTE | 2024-05-11 09:47 | EKG_ITS ---
[address] [address] Test Date: 2024-05-11 Pat Name: Hannah Rm Department: Room: Gender: Female Ems Coordinator: LUPILLO : 1945 Requested By: Order Number: [id number] Reading MD: Rickie Calix Measurements Intervals [place] Rate: 67 P: VT: QRS: 64 QRSD: 92 T: -30 QT: 374 QTc: 395 Interpretive Statements Atrial fibrillation Nonspecific T wave abnormality Electronically Signed On 05-11-2024 15:13:27 PST by Rickie Calix
--- NOTE | 2024-05-11 09:49 | ED.NAVMDI ---
HPI - Nausea/Vomiting/Diarrhea General Chief complaint: Abdominal Pain Stated complaint: diff breathing, lots of pain Time Seen by Provider: 05/11/24 09:39 Source: patient Mode of arrival: Family Vehicle History of Present Illness HPI Narrative: Patient has history of dementia and ileostomy hysterectomy history of rectal cancer. Surgery done earlier this year at [facility], surgeon Dr. Melissa. Has been doing well. and caregiver at bedside. Went to bed last night without any difficulties. However this morning patient appeared to be anxious. Complains of nausea. At this time she denies any chest pain or abdominal pain. Exam is reassuring. However she does appear anxious. No prior history of heart attack strokes or diabetes. Has history of chronic atrial fibrillation, is anticoagulated and is on metoprolol. Related Data Home Medications Medication Instructions Recorded Confirmed rosuvastatin 5 mg tablet 5 mg PO QPM 02/06/21 05/19/24 cholecalciferol (vitamin D3) 50 50 mcg PO QAM 12/16/21 05/19/24 mcg (2,000 unit) capsule metoprolol succinate 100 mg 100 mg PO QAM 12/16/21 05/19/24 tablet,extended release 24 hr rivaroxaban 10 mg tablet 10 mg PO QPM 12/06/22 05/19/24 multivitamin 1 tab PO DAILY 05/19/24 05/19/24 Previous Rx's Medication Instructions Recorded donepezil 10 mg tablet 10 mg PO QAM #90 tabs 02/24/24 Allergies Allergy/AdvReac Type Severity Reaction Status Date / Time No Known Drug Allergies Allergy Verified 05/19/24 07:25 Review of Systems Review of Systems Narrative: GENERAL: Negative chills, fatigue, malaise, fever, sweats. HEENT: Negative sinus pain, ear pain, sore throat RESPIRATORY: Negative dyspnea, cough CARDIOVASCULAR: Negative chest pain, palpitations GASTROINTESTINAL: Positive nausea, vomiting, abdominal pain : Negative dysuria, frequency, hematuria MUSCULOSKELETAL: Negative muscle or bony pain SKIN: Negative rash, skin lesions NEUROLOGIC: Negative weakness, numbness PSYCH: Positive anxiety ROS Unobtainable: All systems reviewed & are unremarkable except as noted in HPI and below Patient History Medical History Chicken pox Chronic anticoagulation Chronic atrial fibrillation Dementia Diarrhea Do not resuscitate Essential hypertension GERD without esophagitis GI bleed Hyperlipidemia Hypertension Iron deficiency anemia Measles Migraines Mixed hyperlipidemia Osteopenia Polyneuropathy, unspecified Rectal adenocarcinoma Systolic CHF, chronic Wears glasses Surgical History Anesthesia History of colonoscopy History of hysterectomy History of low anterior resection of rectum History of partial colectomy Ileostomy status Status post colostomy takedown Family History Mother Stroke History of heart disease Hypertension Hyperlipidemia Father Parkinson's disease (tremor, stiffness, slow motion, unstable posture) History of heart disease Hypertension Hyperlipidemia Grandfather History of heart disease Grandfather Cancer Social History marital status: details: ([place]), no children household members: spouse Smoking Status: Never smoker alcohol intake: former Smoking Status: Never smoker alcohol intake frequency: 0-2 drinks per day Exam Narrative Exam Narrative: GENERAL: in no distress, not toxic not dyspneic HEAD: Normocephalic. EYES: Pupils equal round ENT: Mucous membranes moist. NECK: Trachea midline. CARDIOVASCULAR: Regular rate and rhythm RESPIRATORY: Clear to auscultation. Breath sounds equal bilaterally. No wheezes, rales, or rhonchi. GASTROINTESTINAL: Abdomen soft, non-tender, no peritoneal signs bowel sounds are present. No pain out of portion exam. No guarding rebound. EXTREMITIES: No gross deformities. BACK: No flank tenderness. NEURO: AOx 2. Clear speech no facial droop light touch intact bilateral face and hands was strong equal manager convention. SKIN: Warm and dry PSYCH: Patient appears anxious, is cooperative Initial Vital Signs Initial Vital Signs: Vital Signs Temperature 97.4 F L 05/11/24 09:26 Pulse Rate 78 05/11/24 09:26 Respiratory Rate 16 05/11/24 09:26 Blood Pressure 129/77 05/11/24 09:26 Pulse Oximetry 96 05/11/24 09:26 Oxygen Delivery Method Room Air 05/11/24 09:26 Course Orders Ordered: Discontinued Medications Cephalexin HCl (Cephalexin 250 Mg Capsule) 500 mg PO NOW ONE Stop: 05/11/24 17:09 Last Admin: 05/11/24 17:15 Dose: 500 mg Documented By: SB Lorazepam (Lorazepam 2 Mg/Ml Inj) 0.5 mg IV NOW ONE Stop: 05/11/24 09:49 Last Admin: 05/11/24 10:04 Dose: 0.5 mg Documented By: NETTIE Ondansetron HCl (Ondansetron 4 Mg/2 Ml Inj) 4 mg IV NOW PRN PRN Reason: Nausea And Vomiting Last Admin: 05/11/24 10:04 Dose: 4 mg Documented By: NETTIE Ondansetron HCl (Ondansetron 4 Mg Odt) 4 mg PO NOW PRN PRN Reason: Nausea And Vomiting Vital Signs Vital signs: Vital Signs - 8 hr 05/11/24 10:00 05/11/24 10:01 05/11/24 10:01 Pulse Rate 73 71 Respiratory Rate 21 13 Blood Pressure 120/56 L Pulse Oximetry 100 100 Oxygen Delivery Method Room Air Room Air 05/11/24 10:30 05/11/24 10:30 05/11/24 13:19 Pulse Rate 89 75 Respiratory Rate 17 Blood Pressure 92/60 Pulse Oximetry 95 97 Oxygen Delivery Method Room Air 05/11/24 13:21 05/11/24 13:21 05/11/24 13:30 Pulse Rate 72 57 L Respiratory Rate Blood Pressure 121/52 L Pulse Oximetry 99 98 Oxygen Delivery Method Room Air 05/11/24 14:00 05/11/24 14:01 05/11/24 14:01 Pulse Rate 65 65 Respiratory Rate Blood Pressure 100/62 Pulse Oximetry 96 97 Oxygen Delivery Method 05/11/24 14:30 05/11/24 14:30 05/11/24 15:00 Pulse Rate 60 Respiratory Rate Blood Pressure 102/59 L 95/62 Pulse Oximetry 97 Oxygen Delivery Method 05/11/24 15:00 05/11/24 15:30 05/11/24 15:30 Pulse Rate 71 63 Respiratory Rate Blood Pressure 97/68 Pulse Oximetry 98 98 Oxygen Delivery Method Room Air 05/11/24 15:34 05/11/24 15:34 05/11/24 16:00 Pulse Rate 62 Respiratory Rate 18 Blood Pressure 95/71 99/59 L Pulse Oximetry 96 Oxygen Delivery Method Room Air 05/11/24 16:00 05/11/24 16:30 05/11/24 16:30 Pulse Rate 69 70 Respiratory Rate 14 Blood Pressure 92/61 Pulse Oximetry 97 97 Oxygen Delivery Method Room Air 05/11/24 17:00 05/11/24 17:01 05/11/24 17:01 Pulse Rate 74 70 Respiratory Rate 21 Blood Pressure 103/58 L Pulse Oximetry 96 95 Oxygen Delivery Method Room Air MDM - Nausea/Vomiting/Diarrhea Lab Data 05/11/24 09:51 05/11/24 09:51 Labs: Lab Results 05/11/24 05/11/24 Range/Units 09:51 16:10 WBC 8.2 (4.5-11.0) X10^3/uL RBC 4.59 (4.0-5.2) X10^6/uL Hgb 14.4 (12.0-16.0) g/dL Hct 42.9 (36-46) % MCV 93.5 (80-100) fL MCH 31.4 (26-34) PG MCHC 33.6 (30-36) % RDW 14.4 (11.6-14.8) % Plt Count 177 (150-400) X10^3/uL Neut % (Auto) 89.1 H (50-75) % Lymph % (Auto) 6.0 L (25-40) % [place] % (Auto) 3.9 (3-14) % Eos % (Auto) 0.7 L (2-4) % Baso % (Auto) 0.3 (0-2) % Neut # (Auto) 7300 H (2413-7626) /uL Lymph # (Auto) 500 L (5715-8603) /uL [place] # (Auto) 300 (0-900) /uL Eos # (Auto) 100 (0-450) /uL Baso # (Auto) 0 (0-100) /uL Sodium 139 (137-145) mmol/L Potassium 4.4 (3.4-5.1) mmol/L Chloride 112 H (98-107) mmol/L Carbon Dioxide 20 L (22-32) mmol/L BUN 21 H (7-17) mg/dL Creatinine 0.99 (0.52-1.04) mg/dL Estimated GFR 59 L (>60) mL/min BUN/Creatinine Ratio 21.2 (6-22) Glucose 121 H (80-110) mg/dL Calcium 10.7 H (8.4-10.2) mg/dL Total Bilirubin 1.3 (0.2-1.3) mg/dL AST 38 H (14-36) IU/L ALT 31 (<35) IU/L Alkaline Phosphatase 93 (38-126) U/L Total Creatine Kinase 38 (30-135) U/L Troponin I < 0.012 (0.01-0.034) ng/mL Total Protein 7.2 (6.3-8.2) g/dL Albumin 4.4 (3.5-5.0) g/dL Globulin 2.8 (1.7-4.1) g/dL Albumin/Globulin Ratio 1.6 (1.0-2.8) Lipase 111 (23-300) U/L Urine Color Yellow Urine Appearance Clear Urine pH 5.0 (4.5-8.0) Ur Specific [place] 1.020 (1.000-1.035) Urine Protein Trace H (Negative) Urine Glucose (UA) Negative (Negative) g/dL Urine Ketones Negative (NEGATIVE) Urine Occult Blood 3+ H (Negative) Urine Nitrate Positive H (Negative) Urine Bilirubin Negative (NEGATIVE) Urine Urobilinogen 0.2 (0.2) E.U./dL Ur Leukocyte Esterase Negative (NEGATIVE) Urine RBC 5-10/hpf H (0-5/HPF) Urine WBC 10-30/hpf H (0-5/HPF) Ur Squamous Epith Cells 5-10 /hpf H (0-5/HPF) Urine Bacteria Many (>30) H (None) Ur Culture Indicated? Specimen cultured Vol Urine Centrifuged 10ml (spun) SARS-CoV-2 (PCR) Negative (Negative) Influenza A (RT-PCR) Flu a negative (NEGATIVE) Influenza B (RT-PCR) Flu b negative (NEGATIVE) RSV (PCR) Negative (Negative) Imaging Data US - abdomen: Radiologist's Impression: [address] [address] Ultrasound Report Signed Patient: Hannah Rm MR#: [id number] : 1945 Acct:[id number] Age/Sex: 78 / F Date of Service: 05/11/24 Loc: ED Accession Number: [id number] Procedure: US abdomen limited Ordering Provider: Aubrey Garcia MD PROCEDURE: US ABDOMEN LIMITED INDICATIONS: Upper abdominal pain, attention gallbladder TECHNIQUE: Real-time focused scanning was performed of the abdomen, with image documentation. COMPARISON: [facility], CT, CT ABDOMEN PELVIS WITH CONTRAST, 05/11/2024, 11:58. FINDINGS: The liver is normal in size and demonstrates no suspicious lesions. The gallbladder is poorly seen on this study. The patient is not NPO and the gallbladder is decompressed. The gallbladder appears to be filled with gallstones The gallbladder wall is not thickened, measuring 3 mm or less. No specific pericholecystic fluid is seen. The sonographic Arrington sign is negative. There is no biliary dilatation, the common bile duct measures 6-7 mm. No significant pancreatic abnormality is seen on these images. The visualized right kidney is unremarkable, without hydronephrosis. IMPRESSION: The gallbladder is decompressed and appears to be filled with gallstones. No additional sonographic signs of cholecystitis are seen. Dictated by: Osmani Hendrickson M.D. on 05/11/2024 at 15:41 Approved by: Osmani Hendrickson M.D. on 05/11/2024 at 15:43 [facility] Narrative Medical decision making narrative: Patient has history of dementia and ileostomy hysterectomy history of rectal cancer. Surgery done earlier this year at [facility], surgeon Dr. Melissa. Has been doing well. and caregiver at bedside. Went to bed last night without any difficulties. However this morning patient appeared to be anxious. Complains of nausea. At this time she denies any chest pain or abdominal pain. Exam is reassuring. However she does appear anxious. No prior history of heart attack strokes or diabetes. Has history of chronic atrial fibrillation, is anticoagulated and is on metoprolol. Correction, there is no complaints of shortness of breath. Suad, triage nurse states that was entered incorrectly by her. After history and exam CBC CMP EKG troponin chest x-ray abdominal x-ray Zofran. I did inform we will need to send her to [facility] for CT scan chest abdomen pelvis and then she will be returning back to here [facility] Medical records reviewed: No recent visit for this complaint Differential considered: Includes but not limited to STEMI non-STEMI anxiety bowel obstruction viral syndrome dementia Lab Test results independently reviewed as above. Pertinent findings: WBC 8.2 hemoglobin 14.4 sodium 139 potassium 4.4 BUN 21 creatinine 0.99 GFR 59 AST 38 ALT 31 troponin less than 0.012 lipase 111 respiratory panel negative Independently reviewed EKG atrial fibrillation rate 67 Imaging studies independently reviewed: CT abdomen pelvis done at [facility] because our CT scan is broken, shows cholelithiasis. Ultrasound done here cholelithiasis without cholecystitis. Consultations: None indicated at this time Treatments: Keflex Ativan Nimofran Re-evaluations: 5:47 p.m.. at bedside. Patient has eaten lunch today. No nausea or vomiting. Patient feeling much better. Reviewed results with . Exam and laboratory studies imaging studies are reassuring. Treating for UTI now. Return precautions reviewed. They desire discharge home. Discussion: Appropriate for discharge home exam is reassuring. Not toxic not dyspneic. Laboratory studies imaging studies reassuring. Keflex started here tonight. Return precautions reviewed with . They desire discharge home. Diagnosis: Acute UTI Discharge Plan Departure Patient Disposition: Home Clinical Impression: Acute urinary tract infection Instructions: DI for Urinary Tract Infection (UTI) Activity Restrictions/Additional Instructions: Please continue home medications. You are being treated for urinary tract infections. First dose was given here today. Please continue tomorrow. Prescription has been sent to pharmacy to [facility] picker tomorrow. See family doctor in a week for re-evaluation. Keep well hydrated. Today's laboratories imaging studies are reassuring. Return if worse if any questions or concerns Prescriptions: No Action donepezil 10 mg tablet 10 mg PO QAM Qty: 90 3RF metoprolol succinate 100 mg tablet extended release 24 hr 100 mg PO QAM cholecalciferol (vitamin D3) 50 mcg (2,000 unit) capsule 50 mcg PO QAM multivitamin Tablet 1 tab PO DAILY rosuvastatin 5 mg tablet 5 mg PO QPM rivaroxaban 10 mg Tablet 10 mg PO QPM Rx Instructions: for 35 days Referrals: Maninder Stout MD [Primary Care Provider] - Stand Alone Forms: Patient Portal/API/Survey
[2024-05-11 10:02] LABS: Add Manual Diff / Slide Review NO; Basophils Absolute Auto 0 /uL (0-100); Basophils Percent Auto 0.3 % (0-2); Eosinophils Absolute Auto 100 /uL (0-450); Eosinophils Percent Auto 0.7 % (2-4); Hematocrit 42.9 % (36-46); Hemoglobin 14.4 g/dL (12.0-16.0); Lymphocytes Absolute Auto 500 /uL (1100-4500); Mean Corpuscular HGB Conc 33.6 % (30-36); Mean Corpuscular Hemoglobin 31.4 PG (26-34); Mean Corpuscular Volume 93.5 fL (80-100); Monocytes Absolute Auto 300 /uL (0-900); Monocytes Percent Auto 3.9 % (3-14); Neutrophils Absolute Auto 7300 /uL (1500-7000); Neutrophils Percent Auto 89.1 % (50-75); Platelet Count 177 X10^3/uL (150-400); Red Blood Cell Count 4.59 X10^6/uL (4.0-5.2); Red Cell Distribution Width 14.4 % (11.6-14.8); White Blood Cell Count 8.2 X10^3/uL (4.5-11.0)
[2024-05-11] MEDS: LORazepam 2 MG/ML INJ 0.5 MG IV (10:04)
[2024-05-11] MEDS: ONDANSETRON 4 MG/2 ML INJ IV (10:04)
[2024-05-11 10:12] LABS: Alanine Aminotransferase 31 IU/L (<35); Albumin 4.4 g/dL (3.5-5.0); Albumin Globulin Ratio 1.6 (1.0-2.8); Alkaline Phosphatase 93 U/L (38-126); Aspartate Aminotransferase 38 IU/L (14-36); BUN Creatinine Ratio 21.2 (6-22); Bilirubin Total 1.3 mg/dL (0.2-1.3); Blood Urea Nitrogen 21 mg/dL (7-17); Calcium 10.7 mg/dL (8.4-10.2); Carbon Dioxide 20 mmol/L (22-32); Chloride 112 mmol/L (98-107); Creatine Kinase 38 U/L (30-135); Estimated Glomerular Filt Rate 59 mL/min (>60); Globulin 2.8 g/dL (1.7-4.1); Glucose 121 mg/dL (80-110); HEMOLYSIS 23 (0-50); Lipase 111 U/L (23-300); Potassium 4.4 mmol/L (3.4-5.1); Sodium 139 mmol/L (137-145); Total Protein 7.2 g/dL (6.3-8.2)
[2024-05-11 10:24] LABS: Troponin I < 0.012 ng/mL (0.01-0.034)
[2024-05-11 10:48] LABS: Influenza A - CEPHEID Flu A NEGATIVE (NEGATIVE); Influenza B - CEPHEID Flu B NEGATIVE (NEGATIVE); Respiratory Syncytial Virus Negative (Negative)
--- NOTE | 2024-05-11 10:48 | PC.NURSE ---
Pt to be transferred to [facility] for ordered abdominal CT scan d/t CT scan at [facility] for maintenance. I assisted pt to stand and reposition into ambulance stretcher. I gave report to Cristi with [facility] and a copy of pt's POLST form.
[2024-05-11 10:50] LABS: COVID-19 CEPHEID 4-PLEX PCR Negative (Negative)
--- NOTE | 2024-05-11 14:09 | DI.US.S_ITS ---
PROCEDURE: US ABDOMEN LIMITED INDICATIONS: Upper abdominal pain, attention gallbladder TECHNIQUE: Real-time focused scanning was performed of the abdomen, with image documentation. COMPARISON: [facility], CT, CT ABDOMEN PELVIS WITH CONTRAST, 05/11/2024, 11:58. FINDINGS: The liver is normal in size and demonstrates no suspicious lesions. The gallbladder is poorly seen on this study. The patient is not NPO and the gallbladder is decompressed. The gallbladder appears to be filled with gallstones The gallbladder wall is not thickened, measuring 3 mm or less. No specific pericholecystic fluid is seen. The sonographic Arrington sign is negative. There is no biliary dilatation, the common bile duct measures 6-7 mm. No significant pancreatic abnormality is seen on these images. The visualized right kidney is unremarkable, without hydronephrosis. IMPRESSION: The gallbladder is decompressed and appears to be filled with gallstones. No additional sonographic signs of cholecystitis are seen. Dictated by: Osmani Hendrickson M.D. on 05/11/2024 at 15:41 Approved by: Osmani Hendrickson M.D. on 05/11/2024 at 15:43
--- NOTE | 2024-05-11 16:17 | PC.NURSE ---
Pt able to stand and walk to bathroom with use of walker. Gait belt in place. Steady on feet. Colostomy bag does have some output.
[2024-05-11 16:22] LABS: Appearance Urine UA CLEAR; Bilirubin Urine UA NEGATIVE (NEGATIVE); Color Urine UA YELLOW; Glucose Urine UA NEGATIVE (Negative); Ketones Urine UA NEGATIVE (NEGATIVE); Leukocyte Esterase Urine UA NEGATIVE (NEGATIVE); Nitrite Urine UA POSITIVE (Negative); Occult Blood Urine UA 3+ (Negative); Protein Urine UA TRACE (Negative); Urobilinogen Urine UA 0.2 E.U./dL (0.2)
[2024-05-11 16:31] LABS: Bacteria Urine Many (>30); Culture Indicated Urine Specimen Cultured; RBC Urine 5-10/HPF (0-5/HPF); Squamous Epithelial Cell Urine 5-10 /HPF (0-5/HPF); Urine Volume 10mL (spun); WBC Urine 10-30/HPF (0-5/HPF)
[2024-05-11] MEDS: cephALEXin 250 MG CAPSULE 500 MG PO (17:15)
== END 2024-05-11 18:00 | disposition home or self-care (01) ==
PROVIDERS: Emergency Provider Emergency Medicine; PCP Internal Medicine
DX: N39.0 Urinary tract infection, site not specified (principal); F41.9 Anxiety disorder, unspecified
CPT/HCPCS: 0241U; 36415; 76705; 80053; 81001; 82550; 83690; 84484; 85025; 87077; 87086; 87186; 93005; 96374; 96375; 99284; J2060; J2405

== ENCOUNTER → 2024-05-19 08:25 | Outpatient (CLI) | payer MEDICARE, SELFPAY ==
[2022-12-06 15:54] VITALS: BMI 25.2
[2024-05-19 08:52] LABS: Bilirubin Urine UA NEGATIVE (NEGATIVE); Color Urine UA YELLOW; Glucose Urine UA NEGATIVE (Negative); Ketones Urine UA NEGATIVE (NEGATIVE); Leukocyte Esterase Urine UA NEGATIVE (NEGATIVE); Nitrite Urine UA NEGATIVE (Negative); Occult Blood Urine UA 3+ (Negative); Protein Urine UA TRACE (Negative); Urobilinogen Urine UA 0.2 E.U./dL (0.2)
[2024-05-19 08:55] LABS: Appearance Urine UA CLOUDY; pH Urine UA 5.5 (4.5-8.0)
[2024-05-19 09:04] LABS: RBC Urine >100/HPF (0-5/HPF); Urine Volume 10mL (spun); WBC Urine 0-1/HPF (0-5/HPF)
[2024-05-19 09:05] LABS: Bacteria Urine Moderate (10-30); Calcium Oxalate Crystals Urine Moderate; Culture Indicated Urine Cult Not Indicated; Squamous Epithelial Cell Urine 0-1 /HPF (0-5/HPF)
== END ==
PROVIDERS: PCP Internal Medicine; Referring Provider Internal Medicine; Visit Provider Internal Medicine
DX: N39.0 Urinary tract infection, site not specified (principal)
CPT/HCPCS: 81001

== ENCOUNTER → 2024-07-28 09:03 | Outpatient (CLI) | payer MEDICARE, SELFPAY ==
[2022-12-06 15:54] VITALS: BMI 25.2
[2024-07-28 09:49] LABS: Appearance Urine UA CLEAR; Bilirubin Urine UA NEGATIVE (NEGATIVE); Color Urine UA YELLOW; Glucose Urine UA NEGATIVE (Negative); Ketones Urine UA NEGATIVE (NEGATIVE); Leukocyte Esterase Urine UA TRACE (NEGATIVE); Nitrite Urine UA POSITIVE (Negative); Occult Blood Urine UA 2+ (Negative); Protein Urine UA 1+ (Negative); Specific Gravity Urine UA >=1.030 (1.000-1.035); Urobilinogen Urine UA 0.2 E.U./dL (0.2); pH Urine UA 5.5 (4.5-8.0)
[2024-07-28 09:56] LABS: Bacteria Urine Many (>30); Calcium Oxalate Crystals Urine Occasional; Culture Indicated Urine Specimen Cultured; RBC Urine 5-10/HPF (0-5/HPF); Squamous Epithelial Cell Urine 1-5 /HPF (0-5/HPF); Urine Volume 10mL (spun); WBC Urine 5-10/HPF (0-5/HPF)
== END ==
PROVIDERS: PCP Internal Medicine; Referring Provider Internal Medicine; Visit Provider Internal Medicine
DX: N30.00 Acute cystitis without hematuria (principal)
CPT/HCPCS: 81001; 87077; 87086; 87186